=== PATIENT | female | born 1940 | race Caucasian/White ===

== ENCOUNTER 2020-07-19 06:22 | Outpatient (REF) | payer MEDICARE, MEDICAID, SELFPAY ==
[2020-07-19 07:34] LABS: Alanine Aminotransferase 22 U/L (0-31); Alkaline Phosphatase 91 U/L (39-117); Anion Gap 10 (12-20); Aspartate Amino Transferase 19 U/L (5-31); Bilirubin Total 0.5 mg/dL (0.0-1.0); Blood Urea Nitrogen 20 mg/dL (9-16); Calcium 8.8 mg/dL (8.4-10.2); Carbon Dioxide 31 mmol/L (22-29); Chloride 105 mmol/L (96-108); Cholesterol 150 mg/dL; Estimated Glomerular Filt Rate > 60; Glucose Random 103 mg/dL (60-115); HDL Cholesterol 47 mg/dL; LDL Cholesterol Calculated 74 mg/dl; Potassium 4.1 mmol/l (3.3-5.1); Sodium 142 mmol/L (135-145); Total Protein 6.4 g/dL (6.5-8.0); Triglycerides 145 mg/dL
[2020-07-19 07:55] LABS: TSH reflex Free T4 0.62 mIU/mL (0.32-4.0); Vitamin D 25-OH Total 34.7 ng/mL (>30)
== END 2020-07-19 06:23 | disposition home or self-care (01) ==
LOC: HO.LAB 06:22
PROVIDERS: PCP Internal Medicine; Visit Provider Internal Medicine
DX: E78.00 Pure hypercholesterolemia, unspecified (principal); E55.9 Vitamin D deficiency, unspecified; E03.9 Hypothyroidism, unspecified
CPT/HCPCS: 80053; 80061; 82306; 84443

== ENCOUNTER 2020-07-25 07:53 | Outpatient (REF) | payer MEDICARE, SELFPAY ==
--- NOTE | 2020-07-25 07:58 | MM_ITS ---
EXAMINATION: MM SCREENING DIGITAL BREAST TOMOSYNTHESIS, BILATERAL CLINICAL INFORMATION: Screening. Asymptomatic. The lifetime risk of breast cancer based on the Tyrer-Cuzick Model is 2%. COMPARISON: Mammography: 07/20/2019, 05/21/2018 TECHNIQUE: Digital breast tomosynthesis is performed in both the craniocaudal and mediolateral oblique views along with computer-aided detection (CAD). Synthesized 2D images are generated from the tomosynthesis. Additional left MLO view is provided. FINDINGS: The breasts are heterogeneously dense, which may obscure small masses (ACR BI-RADS breast composition Category c). There is fibronodular parenchymal pattern similar to prior studies. There is no developing density or interval mass or architectural abnormality. The axilla and skin contours are unremarkable. MM/MM tomosynthesis screening BI IMPRESSION: There are no significant changes from prior study. ASSESSMENT: BI-RADS 1: Negative RECOMMENDATION: Routine annual mammography screening. This patient's information was entered into a reminder system with a target due date for their next mammogram.
== END 2020-07-25 07:54 | disposition home or self-care (01) ==
LOC: HO.MAMMO 07:53
PROVIDERS: PCP Internal Medicine; Visit Provider Internal Medicine
DX: Z12.31 Encounter for screening mammogram for malignant neoplasm of breast (principal)
CPT/HCPCS: 77063; 77067

== ENCOUNTER 2020-09-13 11:48 | Outpatient (REF) | payer MEDICARE, SELFPAY | END 2020-09-13 11:49 | disposition home or self-care (01) | LOC: HO.LAB 11:48 | PROVIDERS: Visit Provider Internal Medicine | DX: Z20.822 Contact with and (suspected) exposure to COVID-19 (principal) | CPT/HCPCS: 36415; C9803; U0003 ==

== ENCOUNTER 2021-05-08 06:06 | Outpatient (REF) | payer MEDICARE, MEDICAID, SELFPAY ==
[2021-05-08 07:53] LABS: Alanine Aminotransferase 17 U/L (0-31); Albumin Level 3.9 g/dL (3.5-5.0); Alkaline Phosphatase 82 U/L (39-117); Anion Gap 14 (12-20); Aspartate Amino Transferase 16 U/L (5-31); Bilirubin Total 0.5 mg/dL (0.0-1.0); Blood Urea Nitrogen 21 mg/dL (9-16); Calcium 9.2 mg/dL (8.4-10.2); Carbon Dioxide 26 mmol/L (22-29); Chloride 106 mmol/L (96-108); Cholesterol 151 mg/dL; Estimated Glomerular Filt Rate > 60; Glucose Fasting 109 mg/dL (60-99); HDL Cholesterol 48 mg/dL; LDL Cholesterol Calculated 71 mg/dl; Potassium 4.1 mmol/L (3.3-5.1); Sodium 142 mmol/L (135-145); Total Protein 6.3 g/dL (6.5-8.0); Triglycerides 162 mg/dL
[2021-05-08 08:15] LABS: TSH reflex Free T4 1.07 uIU/mL (0.32-4.0)
[2021-05-12 13:51] LABS: Vitamin D 25-OH, D2 <4 ng/mL; Vitamin D 25-OH, D3 42 ng/mL; Vitamin D 25-OH, Total 42 ng/mL (30-100)
== END 2021-05-08 06:07 | disposition home or self-care (01) ==
LOC: HO.LAB 06:06
PROVIDERS: PCP Internal Medicine; Visit Provider Internal Medicine
DX: E03.9 Hypothyroidism, unspecified (principal); E78.00 Pure hypercholesterolemia, unspecified; E78.5 Hyperlipidemia, unspecified; I10 Essential (primary) hypertension; E55.9 Vitamin D deficiency, unspecified
CPT/HCPCS: 36415; 80053; 80061; 82306; 84443

== ENCOUNTER 2021-05-29 07:37 | Outpatient (REF) | payer MEDICARE, MEDICAID, SELFPAY ==
--- NOTE | ~2021-05-29 | CT_ITS ---
EXAMINATION: CT ABDOMEN AND PELVIS WITH CONTRAST CLINICAL INFORMATION: Diverticulitis. COMPARISON: None. TECHNIQUE: Multidetector volumetric images were obtained from the superior aspect of the liver through the pubic symphysis following administration 85 mL of Omnipaque 350 intravenous contrast. Sagittal and coronal reformatted images were obtained on the technologist's workstation. Oral contrast: No This CT examination was performed using dose optimization techniques as appropriate, variously including the following: *Automated exposure control *Adjustment of mA and/or kV according to patient size (this includes techniques or standardized protocols for targeted exams where dose is matched to indication/reason for exam; i.e. extremities or head) *Use of iterative reconstruction technique DLP: 281 mGy-cm. FINDINGS: LUNG BASES: The lung bases are clear. The heart size is normal. There is a large hiatal hernia. LIVER, GALLBLADDER, AND BILIARY TREE: The liver is normal in size, shape, and attenuation. No focal hepatic lesion or biliary ductal dilatation is present. The gallbladder is unremarkable with no evidence of radiopaque gallstones, gallbladder wall thickening, or obvious pericholecystic inflammatory changes. PANCREAS: The pancreas is atrophic. There is a slightly bulbous-appearing tail of pancreas measuring 1.7 x 1.3 cm on axial image 24/3. Whether this is a mass or normal pancreatic tissue is a question. It is unchanged to previous study. SPLEEN: Unremarkable. ADRENAL GLANDS: Unremarkable. KIDNEYS AND URETERS: The kidneys are normal in size, shape, and attenuation. No hydronephrosis, hydroureter, or calculi seen. No perinephric stranding. There are tiny hypodensities seen in bilateral renal cortical cysts likely cyst. BLADDER: Unremarkable. GASTROINTESTINAL TRACT: There is scattered stool, diverticuli and gas seen throughout the colon without diverticulitis. Oral contrast opacified small bowel loops are normal caliber. Appendix is likely normal caliber. No inflammatory changes seen. ABDOMINAL WALL: There is a left inguinal hernia containing intraperitoneal fat. It appears stable compared to previous study. LYMPH NODES: Normal. VASCULAR: Unremarkable. PELVIC VISCERA: There is no free air or free fluid. The uterus is atrophied or surgically absent. No adnexal mass seen. OSSEOUS STRUCTURES: Grade 1 anterolisthesis L4 over L5 is noted. There are degenerative disc changes L2-L3, L3-L4 disc levels. No lytic or sclerotic process seen. CT/CT abdomen pelvis w con IMPRESSION: Stable left inguinal hernia containing fat. Diffuse colonic diverticulosis without diverticulitis. Large paraesophageal hernia, stable. No acute intra-abdominal bleed. Stable atrophic pancreas and a slightly bulbous pancreatic tail.
[2021-05-29] MEDS: iohexoL 350 MG/ML 100 ML INFUS..BTL IV (10:39)
[2021-05-29] MEDS: Barium Sulfate Oral (Berry) 450 ML ORAL.SUSP 900 ML PO (10:40)
== END 2021-05-29 07:38 | disposition home or self-care (01) ==
LOC: HO.CT 07:37
PROVIDERS: Visit Provider Internal Medicine
DX: K57.92 Diverticulitis of intestine, part unspecified, without perforation or abscess without bleeding (principal)
CPT/HCPCS: 74177; Q9967

== ENCOUNTER 2021-08-08 08:25 | Outpatient (REF) | payer MEDICARE, MEDICAID, SELFPAY ==
--- NOTE | ~2021-08-08 | MM_ITS ---
EXAMINATION: MM SCREENING DIGITAL BREAST TOMOSYNTHESIS, BILATERAL CLINICAL INFORMATION: Screening. Asymptomatic. The lifetime risk of breast cancer based on the Tyrer-Cuzick Model is 2%. COMPARISON: Mammography: July 25, 2020 and studies dating back to January 22, 2014 TECHNIQUE: Digital breast tomosynthesis is performed in both the craniocaudal and mediolateral oblique views along with computer-aided detection (CAD). Synthesized 2D images are generated from the tomosynthesis. FINDINGS: The breasts are heterogeneously dense, which may obscure small masses (ACR BI-RADS breast composition Category c). There are no significant masses, abnormal calcifications, or other abnormalities. MM/MM tomosynthesis screening BI IMPRESSION: There are no significant changes from prior study. ASSESSMENT: BI-RADS 1: Negative RECOMMENDATION: Routine annual mammography screening. This patient's information was entered into a reminder system with a target due date for their next mammogram.
== END 2021-08-08 08:26 | disposition home or self-care (01) ==
LOC: HO.MAMMO 08:25
PROVIDERS: Visit Provider Internal Medicine
DX: Z12.31 Encounter for screening mammogram for malignant neoplasm of breast (principal)
CPT/HCPCS: 77063; 77067

== ENCOUNTER 2021-10-04 13:50 | Outpatient (REF) | payer MEDICARE, MEDICAID, SELFPAY ==
--- NOTE | ~2021-10-04 | MM_ITS ---
EXAMINATION: BONE DENSITOMETRY CLINICAL INDICATION: Encounter for screening for osteoporosis. COMPARISON: Previous BD dated 10/30/2012 and baseline BD dated 09/07/2010. TECHNIQUE: Using a [employer] DXA System (software version: 13.1) manufactured by [employer], dual-energy x-ray absorptiometry was performed of the lumbar spine and left hip. The images are of good technical quality. Summary results are attached. FINDINGS: AP SPINE L1-L2 (excluding L3 and L4): The data of L1-L4 has been changed to exclude the L3 and L4 vertebral bodies, because degenerative sclerosis at these levels may cause overestimation of lumbar spine density. Current: BMD 0.960 g/cm2, Z-score 0.4, T-score -1.7, osteopenia, 5.1% decrease from previous, 3.7% decrease from baseline (<5% change is not significant). Prior: BMD 1.012 g/cm2. Baseline: BMD 0.997 g/cm2. LEFT FEMUR, NECK: Current: BMD 0.850 g/cm2, Z-score 1.0, T-score -1.4, osteopenia. Prior: BMD 0.893 g/cm2. Baseline: BMD 0.927 g/cm2. LEFT FEMUR, TOTAL: Current: BMD 0.879 g/cm2, Z-score 1.2, T-score -1.0, normal, 8.3% decrease from previous, 9.0% decrease from baseline (<5% change is not significant). Prior: BMD 0.959 g/cm2. Baseline: BMD 0.966 g/cm2. IDENTIFIED RISK FACTORS: Osteoporosis, secondary osteoporosis, thiazide, menopause, hysterectomy. HISTORY OF FRACTURE: None listed. MEDICATIONS: Vitamin D. MM/XR DEXA axial skeleton IMPRESSION: 1. DIAGNOSIS: Osteopenia based on the lowest T-score value of -1.7 in the lumbar spine applying World Health Organization criteria. 2. 10-YEAR FRACTURE RISK PREDICTION, FRAX: Major osteoporotic fracture (clinical spine, forearm, hip or shoulder) 13.1%. Hip fracture 2.9%. 3. Treatment Recommendations: NOF guidelines recommend consideration for treatment in postmenopausal women and men age 50 and older presenting with the following: -A hip or vertebral (clinical or morphometric) fracture. -T-score less than or equal to -2.5 at the femoral neck or spine after appropriate evaluation to exclude secondary causes. -Low bone mass at the hip or spine and a 10-year fracture probability by FRAX of greater than or equal to 3% for hip fracture or greater than or equal to 20% for major osteoporotic fracture based on the [place] adapted WHO algorithm. 4. Other Recommendations: All treatment decisions require clinical judgment and consideration of individual patient factors, including patient preferences, comorbidities, previous drug use, risk factors not captured in the FRAX model (e.g. frailty, falls, vitamin D deficiency, increased bone turnover, interval significant decline in bone density) and possible under or overestimation of fracture risk by FRAX. Additional medical evaluation for secondary cause of low bone mineral density may be appropriate. FUTURE SCAN RECOMMENDATION: People with diagnosed cases of osteoporosis or at high risk for fracture should have regular bone mineral density tests. For patients eligible for Medicare, routine testing is allowed once every 2 years. The testing frequency can be increased to one year for patients who have rapidly progressing disease, those who are receiving or discontinuing medical therapy to restore bone mass, or have additional risk factors.
== END 2021-10-04 13:51 | disposition home or self-care (01) ==
LOC: HO.MAMMO 13:50
PROVIDERS: PCP Internal Medicine; Visit Provider Internal Medicine
DX: Z13.820 Encounter for screening for osteoporosis (principal); Z78.0 Asymptomatic menopausal state; Z79.899 Other long term (current) drug therapy
CPT/HCPCS: 77080

== ENCOUNTER → 2021-11-17 10:29 | Outpatient (BNVA) | payer MEDICARE, MEDICAID, SELFPAY | PROVIDERS: PCP Internal Medicine; Visit Provider Surgery | DX: K40.90 Unilateral inguinal hernia, without obstruction or gangrene, not specified as recurrent (principal) | CPT/HCPCS: 99202 ==

== ENCOUNTER 2022-02-07 06:10 | Outpatient (REF) | payer MEDICARE, MEDICAID, SELFPAY ==
[2022-02-07 06:37] LABS: MANUAL DIFF FLAG NO
[2022-02-07 07:17] LABS: Basophils Absolute Auto 0.1 X10*3/uL (0.0-0.2); Basophils Percent Auto 0.7 % (0-2); Eosinophils Absolute Auto 0.4 X10*3/uL (0.0-0.4); Eosinophils Percent Auto 5.2 % (0-4); Hematocrit 39.8 % (37.0-47.0); Hemoglobin 12.8 g/dl (12.0-16.0); Imm Gran Abs Auto 0.02 X10*3/uL (0.00-0.03); Imm Gran Pct Auto 0.2 % (0.0-0.4); Lymphocytes Percent Auto 24.3 % (20-40); Mean Corpuscular HGB Conc 32.2 g/dl (31.0-35.0); Mean Corpuscular Hemoglobin 29.9 pg (27.0-33.0); Mean Platelet Volume 9.6 fL (9.4-12.3); Monocytes Absolute Auto 0.6 X10*3/uL (0.1-1.2); Monocytes Percent Auto 6.9 % (2-11); Neutrophils Absolute Auto 5.3 x10*3/uL (2.0-8.3); Neutrophils Percent Auto 62.7 % (45-73); Platelet Count 238 X10*3/uL (160-400); Red Blood Count 4.28 X10*6/uL (4.20-5.50); Red Cell Distribution Width 13.5 % (11.0-16.0); White Blood Count 8.4 X10*3/uL (4.8-10.8)
[2022-02-07 08:03] LABS: Alanine Aminotransferase 14 U/L (0-31); Albumin Level 3.8 g/dL (3.5-5.0); Alkaline Phosphatase 95 U/L (39-117); Anion Gap 11 (12-20); Aspartate Amino Transferase 13 U/L (5-31); Bilirubin Total < 0.2 mg/dL (0.0-1.0); Blood Urea Nitrogen 19 mg/dL (9-16); Carbon Dioxide 28 mmol/L (22-29); Chloride 107 mmol/L (96-108); Cholesterol 155 mg/dL; Estimated Glomerular Filt Rate > 60; Glucose Fasting 107 mg/dL (60-99); HDL Cholesterol 43 mg/dL; LDL Cholesterol Calculated 84 mg/dl; Potassium 4.4 mmol/L (3.3-5.1); Sodium 142 mmol/L (135-145); Total Protein 6.1 g/dL (6.5-8.0); Triglycerides 140 mg/dL
[2022-02-07 08:12] LABS: Thyroid Stimulating Hormone 0.89 uIU/mL (0.32-4.0)
== END 2022-02-07 06:11 | disposition home or self-care (01) ==
LOC: HO.LAB 06:10
PROVIDERS: PCP Internal Medicine; Visit Provider Internal Medicine
DX: E03.9 Hypothyroidism, unspecified (principal); E78.5 Hyperlipidemia, unspecified; I10 Essential (primary) hypertension; R63.4 Abnormal weight loss
CPT/HCPCS: 36415; 80053; 80061; 84443; 85025

== ENCOUNTER 2022-06-25 06:07 | Outpatient (REF) | payer MEDICARE, MEDICAID, SELFPAY ==
[2022-06-25 08:01] LABS: Alanine Aminotransferase 9 U/L (0-31); Alkaline Phosphatase 100 U/L (39-117); Anion Gap 16 (12-20); Aspartate Amino Transferase 13 U/L (5-31); Bilirubin Total 0.5 mg/dL (0.0-1.0); Blood Urea Nitrogen 14 mg/dL (9-16); Calcium 9.4 mg/dL (8.4-10.2); Carbon Dioxide 24 mmol/L (22-29); Chloride 108 mmol/L (96-108); Cholesterol 161 mg/dL; Estimated Glomerular Filt Rate > 60; Glucose Fasting 109 mg/dL (60-99); HDL Cholesterol 44 mg/dL; LDL Cholesterol Calculated 87 mg/dl; Potassium 4.3 mmol/L (3.3-5.1); Sodium 144 mmol/L (135-145); Total Protein 6.4 g/dL (6.5-8.0); Triglycerides 153 mg/dL
[2022-06-25 08:30] LABS: Thyroid Stimulating Hormone 0.64 uIU/mL (0.32-4.0)
== END 2022-06-25 06:08 | disposition home or self-care (01) ==
LOC: HO.LAB 06:07
PROVIDERS: PCP Internal Medicine; Visit Provider Internal Medicine
DX: I10 Essential (primary) hypertension (principal); E78.5 Hyperlipidemia, unspecified; E03.9 Hypothyroidism, unspecified
CPT/HCPCS: 36415; 80053; 80061; 84443

== ENCOUNTER 2022-09-26 15:42 | Outpatient (REF) | payer MEDICARE, MEDICAID, SELFPAY ==
--- NOTE | ~2022-09-26 | MM_ITS ---
EXAMINATION: MM SCREENING DIGITAL BREAST TOMOSYNTHESIS, BILATERAL CLINICAL INFORMATION: Screening. Asymptomatic. The lifetime risk of breast cancer based on the Tyrer-Cuzick Model is 1.3%. COMPARISON: Mammography: August 08, 2021 and studies dating back to March 30, 2016 TECHNIQUE: Digital breast tomosynthesis is performed in both the craniocaudal and mediolateral oblique views along with computer-aided detection (CAD). Synthesized 2D images are generated from the tomosynthesis. FINDINGS: The breasts are heterogeneously dense, which may obscure small masses (ACR BI-RADS breast composition Category c). There are no significant masses, abnormal calcifications, or other abnormalities. MM/MM tomosynthesis screening BI IMPRESSION: No significant changes ASSESSMENT: BI-RADS 1: Negative RECOMMENDATION: Routine annual mammography screening. This patient's information was entered into a reminder system with a target due date for their next mammogram.
== END 2022-09-26 15:43 | disposition home or self-care (01) ==
LOC: HO.MAMMO 15:42
PROVIDERS: Visit Provider Internal Medicine
DX: Z12.31 Encounter for screening mammogram for malignant neoplasm of breast (principal)
CPT/HCPCS: 77063; 77067

== ENCOUNTER 2022-12-10 06:14 | Outpatient (REF) | payer MEDICARE, MEDICAID, SELFPAY ==
[2022-12-10 08:45] LABS: Alanine Aminotransferase 12 U/L (0-31); Albumin Level 3.8 g/dL (3.5-5.0); Alkaline Phosphatase 87 U/L (39-117); Anion Gap 14 (12-20); Aspartate Amino Transferase 13 U/L (5-31); Bilirubin Total 0.6 mg/dL (0.0-1.0); Blood Urea Nitrogen 17 mg/dL (9-16); Calcium 9.3 mg/dL (8.4-10.2); Carbon Dioxide 25 mmol/L (22-29); Chloride 109 mmol/L (96-108); Cholesterol 161 mg/dL; Estimated Glomerular Filt Rate > 60; Glucose Fasting 97 mg/dL (60-99); HDL Cholesterol 50 mg/dL; LDL Cholesterol Calculated 88 mg/dl; Potassium 4.6 mmol/L (3.3-5.1); Sodium 143 mmol/L (135-145); Triglycerides 116 mg/dL
[2022-12-11 23:53] LABS: Prot Elec - Albumin 3.7 g/dL (3.8-4.8); Prot Elec - Alpha1 0.3 g/dL (0.2-0.3); Prot Elec - Alpha2 0.9 g/dL (0.5-0.9); Prot Elec - Beta 1 0.4 g/dL (0.4-0.6); Prot Elec - Beta 2 0.3 g/dL (0.2-0.5); Prot Elec - Gamma 0.7 g/dL (0.8-1.7); Prot Elec - Total Protein 6.2 g/dL (6.1-8.1)
== END 2022-12-10 06:15 | disposition home or self-care (01) ==
LOC: HO.LAB 06:14
PROVIDERS: PCP Internal Medicine; Visit Provider Internal Medicine
DX: Z00.00 Encounter for general adult medical examination without abnormal findings (principal); R79.9 Abnormal finding of blood chemistry, unspecified; E78.5 Hyperlipidemia, unspecified; E03.9 Hypothyroidism, unspecified
CPT/HCPCS: 36415; 80053; 80061; 84165; 84443

== ENCOUNTER 2023-03-14 06:18 | Outpatient (REF) | payer MEDICARE, MEDICAID, SELFPAY ==
[2023-03-14 06:37] LABS: MANUAL DIFF FLAG NO
[2023-03-14 07:40] LABS: Basophils Percent Auto 0.6 % (0-2); Eosinophils Absolute Auto 0.3 X10*3/uL (0.0-0.4); Eosinophils Percent Auto 4.8 % (0-4); Hematocrit 40.8 % (37.0-47.0); Hemoglobin 13.2 g/dl (12.0-16.0); Imm Gran Abs Auto 0.02 X10*3/uL (0.00-0.03); Imm Gran Pct Auto 0.3 % (0.0-0.4); Lymphocytes Percent Auto 29.7 % (20-40); Mean Corpuscular HGB Conc 32.4 g/dl (31.0-35.0); Mean Corpuscular Hemoglobin 29.4 pg (27.0-33.0); Mean Corpuscular Volume 90.9 fL (80.0-98.0); Mean Platelet Volume 9.6 fL (9.4-12.3); Monocytes Absolute Auto 0.6 X10*3/uL (0.1-1.2); Monocytes Percent Auto 8.7 % (2-11); Neutrophils Absolute Auto 3.8 x10*3/uL (2.0-8.3); Neutrophils Percent Auto 55.9 % (45-73); Platelet Count 226 X10*3/uL (160-400); Red Blood Count 4.49 X10*6/uL (4.20-5.50); Red Cell Distribution Width 14.1 % (11.0-16.0); White Blood Count 6.8 X10*3/uL (4.8-10.8)
[2023-03-14 08:28] LABS: Alanine Aminotransferase 12 U/L (0-31); Albumin Level 3.8 g/dL (3.5-5.0); Alkaline Phosphatase 82 U/L (39-117); Aspartate Amino Transferase 13 U/L (5-31); Bilirubin Total 0.5 mg/dL (0.0-1.0); Blood Urea Nitrogen 16 mg/dL (9-16); Calcium 9.6 mg/dL (8.4-10.2); Chloride 112 mmol/L (96-108); Estimated Glomerular Filt Rate > 60; Glucose Fasting 102 mg/dL (60-99); Potassium 4.2 mmol/L (3.3-5.1); Sodium 146 mmol/L (135-145); Total Protein 6.2 g/dL (6.5-8.0)
[2023-03-14 08:35] LABS: Thyroid Stimulating Hormone 1.36 uIU/mL (0.32-4.0)
[2023-03-14 10:17] LABS: Carbon Dioxide 24 mmol/L (22-29)
[2023-03-14 10:27] LABS: Anion Gap 15 (12-20)
== END 2023-03-14 06:19 | disposition home or self-care (01) ==
LOC: HO.LAB 06:18
PROVIDERS: PCP Internal Medicine; Visit Provider Internal Medicine
DX: R07.9 Chest pain, unspecified (principal); E03.9 Hypothyroidism, unspecified; E78.00 Pure hypercholesterolemia, unspecified
CPT/HCPCS: 36415; 80053; 84443; 85025

== ENCOUNTER 2023-03-18 10:49 | Outpatient (AMB) | payer MEDICARE, MEDICAID, SELFPAY ==
[2023-03-18 10:56] VITALS: BP 132/70; BMI 24.2
--- NOTE | 2023-03-18 10:56 | MHC.PC.OV ---
Vital Signs 03/18/23 10:56 Height 4 ft 11 in Weight 120 lb BMI 24.2 BP 132/70 Blood Pressure Location Lt brachial Position Sitting Intake Visit Reasons: physical Intake Note: Patient here for a physical exam Responder Required: No Accompanied by: Self / Same As Patient Allergies No Known Allergies [No Known Allergies*] Allergy (Verified 03/18/23 11:15) Medication List - Last Reconciled 03/18/23 by Gretel Cornejo MD atorvastatin 20 mg PO DAILY enalapril maleate 20 mg PO DAILY 90 days levothyroxine 75 mcg PO QAM omeprazole 40 mg PO DAILY 90 days varicella-zoster gE-AS01B (PF) 50 mcg/0.5 mL IM Tobacco use date assessed: 12/12/22 Fall risk assessment: No Falls in past year Last assessed Fall Risk: 03/18/23 Dental Screening Dental Screen Date: 03/18/23 Did you have a dental visit in the last 12 months?: Yes Did you have a dental problem in the last 6 months where you did not have access to dental care?: No Was dental information given to patient?: Patient has dentist HPI HPI Comments History of Present Illness Details This is an 82-year-old female with hypertension that comes for her physical exam. Last mammogram was 2022 and was normal. Last bone density was September 2021 showing osteopenia. No need for Pap smear or colonoscopy due to age. No chest pain or shortness of breath. Has low total protein level and will be referred to Hematology-Oncology. [facility] Medical History Essential hypertension GERD (gastroesophageal reflux disease) Hypothyroidism Left inguinal hernia Pure hypercholesterolemia Screening for osteoporosis Weight loss Surgical History History of appendectomy History of hysterectomy History of inguinal hernia repair (~1987) Family History Father COPD (chronic obstructive pulmonary disease) Mother Acute CVA (cerebrovascular accident) Hypertension Alcoholism Brother Stomach cancer Paternal Grandmother Uterine cancer Family/Other FH: mental illness Maternal Grandmother Hypertension Social History Housing: House Alcohol intake: never Patient Tobacco Use Status: Former Tobacco user Tobacco use type: Cigarette e-Cigarette/Vaping Use: Never Used Second Hand Smoke Exposure: No service: No Current occupational status: retired Cognitive needs: No Hearing needs: No Vision needs: No Questionnaire Thrive Questionnaire Date Thrive assessed: 12/12/22 MICHELLE-7 AMB Questionnaire MICHELLE-7 Date MICHELLE - 7 assessed: 12/12/22 Source: Developed by Drs. Fernando Stauffer, Selam Cabrera, Rao Roche and colleagues, with an educational hari from [employer]. Review of Systems Const All systems reviewed & are unremarkable except as noted in HPI and below Eyes Reports no additional complaints, Denies change in vision and Denies other visual disturbances Card Denies chest pain at rest, Denies chest pain with activity, Denies edema, Denies irregular heart rhythm, Denies claudication, Denies dyspnea, Denies dyspnea on exertion, Denies orthopnea, Denies paroxysmal nocturnal dyspnea and Denies slow heart rate Resp Denies cough, Denies dyspnea and Denies dyspnea on exertion GI Denies abdominal pain, Denies change in bowel habits, Denies excessive flatus, Denies nausea and Denies vomiting Denies urinary incontinence, Denies urinary hesitancy and Denies urinary urgency Musc Denies abnormal gait, Denies atrophy, Denies deformity and Denies limited range of motion Skin/Breast Denies bleeding lesions, Denies changing lesions and Denies rash Neuro Denies abnormal gait, Denies confusion and Denies lack of coordination Psych Denies confusion Physical exam (Primary Care) Vital Signs: Last Vital Signs BP 132/70 03/18/23 10:56 BMI result Body Mass Index 24.2 Tobacco/Smoking Status: Tobacco use Status Tobacco use date assessed 12/12/22 03/18/23 11:01 Patient Tobacco Use Status Former Tobacco user 03/18/23 11:01 Tobacco use type Cigarette 03/18/23 11:01 e-Cigarette/Vaping Use Never Used 03/18/23 11:01 Thrive Assessment: Date of Thrive Assessment Date Thrive assessed 12/12/22 03/18/23 11:01 Const General: No confusion Orientation/consciousness: patient oriented x3 and No confusion HENMT Head: Yes normal to inspection, Yes normocephalic and Yes atraumatic Ears: external ears normal Eyes General: appearance normal, both eyes and all related structures Eyelids: Yes eyelids normal Conjunctivae: conjunctivae normal Neck Neck: Yes normal visual inspection and Yes supple Resp Effort & Inspection: normal respiratory effort Auscultation: clear to auscultation bilaterally Cardio Jugular venous distension: no JVD Rate: regular rate Rhythm: regular rhythm Heart sounds: S1 normal heart sound present and S2 normal heart sound present GI Inspection: Yes normal to inspection Palpation (GI): Soft to palpation and nontender Auscultation: normal bowel sounds Skin General skin exam: no rashes or lesions noted Neuro General: patient oriented x3, no focal motor deficits and No confusion Extrem General: Yes full ROM Psych Appearance: grossly normal Assessment and Plan Assessment & Plan (1) Physical exam: Code(s): Z00.00 - Encounter for general adult medical examination without abnormal findings Plan: Repeat in a year. Orders: Orders Comprehensive [place]. Panel Fast 4 Months I10 - Essential (primary) hypertension Lipid Panel 4 Months E78.5 - Hyperlipidemia, unspecified Thyroid Stimulating Hormone 4 Months E03.9 - Hypothyroidism, unspecified Vitamin D 25-OH Total 4 Months E55.9 - Vitamin D deficiency, unspecified Referrals Hematology & Oncology Referral R79.89 - Other specified abnormal findings of blood chemistry Coding Level of Care Code Est Pt Prev Care >65y(02058) Diagnoses Physical exam Z00.00 Time Spent (min) 31
== END 2023-03-18 11:30 | disposition home or self-care (01) ==
PROVIDERS: Visit Provider Internal Medicine
DX: Z00.00 Encounter for general adult medical examination without abnormal findings (principal)
CPT/HCPCS: 99397

== ENCOUNTER 2023-03-19 13:13 | Outpatient (REF) | payer MEDICARE, MEDICAID, SELFPAY ==
[2023-03-22 14:08] LABS: IgA 130 mg/dL (70-320); IgG 732 mg/dL (600-1540); IgM 112 mg/dL (50-300)
[2023-03-24 11:39] LABS: Prot Elec - Albumin 3.7 g/dL (3.8-4.8); Prot Elec - Alpha1 0.3 g/dL (0.2-0.3); Prot Elec - Alpha2 0.9 g/dL (0.5-0.9); Prot Elec - Beta 1 0.4 g/dL (0.4-0.6); Prot Elec - Beta 2 0.3 g/dL (0.2-0.5); Prot Elec - Gamma 0.7 g/dL (0.8-1.7); Prot Elec - Total Protein 6.2 g/dL (6.1-8.1)
== END 2023-03-19 13:14 | disposition home or self-care (01) ==
LOC: HO.LAB 13:13
PROVIDERS: PCP Internal Medicine; Visit Provider Internal Medicine
DX: R79.89 Other specified abnormal findings of blood chemistry (principal)
CPT/HCPCS: 36415; 82784; 84165; 86334

== ENCOUNTER 2023-07-29 09:44 | Outpatient (AMB) | payer MEDICARE, MEDICAID, SELFPAY ==
[2023-07-29 09:45] VITALS: BP 132/70; BMI 24.8
--- NOTE | 2023-07-29 09:45 | A.OFFPC_ITS ---
Vital Signs 07/29/23 09:45 Height 4 ft 11 in Weight 123 lb BMI 24.8 BP 132/70 Blood Pressure Location Lt brachial Position Sitting Intake Visit Reasons: Follow Up Intake Note: Patient here for a follow up Promotional Representative Required: No Accompanied by: Self / Same As Patient Allergies No Known Allergies [No Known Allergies*] Allergy (Verified 07/29/23 09:58) Medication List - Last Reconciled 07/29/23 by Gretel Cornejo MD atorvastatin 20 mg PO DAILY enalapril maleate 20 mg PO DAILY 90 days levothyroxine 75 mcg PO QAM omeprazole 40 mg PO DAILY 90 days varicella-zoster gE-AS01B (PF) 50 mcg/0.5 mL IM Tobacco use date assessed: 12/12/22 Fall risk assessment: No Falls in past year Last assessed Fall Risk: 07/29/23 Dental Screening Dental Screen Date: 07/29/23 Did you have a dental visit in the last 12 months?: Yes Did you have a dental problem in the last 6 months where you did not have access to dental care?: No Was dental information given to patient?: Patient has dentist HPI HPI Comments History of Present Illness Details This is an 82-year-old female with hypothyroidism, hypertension, pure h ypercholesterolemia and GERD that comes today for follow-up on her conditions. Last TSH was normal and TSH will be repeated in 4 months. Compliant with levothyroxine. Blood pressure stable. Last cholesterol was well control. GERD stable with PPIs. She has a low total protein and was advised to follow a high- protein diet and add protein shakes. No chest pain or shortness of breath. [facility] Medical History Weight loss Screening for osteoporosis Left inguinal hernia GERD (gastroesophageal reflux disease) Hypothyroidism Essential hypertension Pure hypercholesterolemia Surgical History History of inguinal hernia repair (~1987) History of appendectomy History of hysterectomy Family History Father COPD (chronic obstructive pulmonary disease) Mother Acute CVA (cerebrovascular accident) Hypertension Alcoholism Brother Stomach cancer Paternal Grandmother Uterine cancer Family/Other FH: mental illness Maternal Grandmother Hypertension Social History Housing: House Alcohol intake: never Patient Tobacco Use Status: Former Tobacco user Tobacco use type: Cigarette e-Cigarette/Vaping Use: Never Used Second Hand Smoke Exposure: No service: No Current occupational status: retired Cognitive needs: No Hearing needs: No Vision needs: No Questionnaire Thrive Questionnaire Date Thrive assessed: 12/12/22 MICHELLE-7 AMB Questionnaire MICHELLE-7 Date MICHELLE - 7 assessed: 12/12/22 Feeling nervous, anxious, or on edge: 0 = Not at all Not being able to stop or control worryin = Not at all Worrying too much about different things: 0 = Not at all Trouble relaxin = Not at all Being so restless that it is hard to sit still: 0 = Not at all Becoming easily annoyed or irritable: 0 = Not at all Feeling afraid as if something awful might happen: 0 = Not at all Total MICHELLE-7 score (0-4 normal; 5-9 mild; 10-14 moderate; 15-21 severe): 0 Source: Developed by Drs. Fernando Stauffer, Selam Caberra, Rao Roche and colleagues, with an educational hari from [employer]. MICHELLE-7 Assessment Billing MICHELLE-7 Assessment Tool: MICHELLE-7 Assessment 24009 Review of Systems Const All systems reviewed & are unremarkable except as noted in HPI and below Eyes Reports no additional complaints, Denies change in vision and Denies other visual disturbances Card Denies chest pain at rest, Denies chest pain with activity, Denies edema, Denies irregular heart rhythm, Denies claudication, Denies dyspnea, Denies dyspnea on exertion, Denies orthopnea, Denies paroxysmal nocturnal dyspnea and Denies slow heart rate Resp Denies cough, Denies dyspnea and Denies dyspnea on exertion GI Denies abdominal pain, Denies change in bowel habits, Denies excessive flatus, Denies nausea and Denies vomiting Denies urinary incontinence, Denies urinary hesitancy and Denies urinary urgency Musc Denies abnormal gait, Denies atrophy, Denies deformity and Denies limited range of motion Skin/Breast Denies bleeding lesions, Denies changing lesions and Denies rash Neuro Denies abnormal gait and Denies lack of coordination Physical exam (Primary Care) Vital Signs: Last Vital Signs BP 132/70 07/29/23 09:45 BMI result Body Mass Index 24.8 Tobacco/Smoking Status: Tobacco use Status Tobacco use date assessed 12/12/22 07/29/23 09:45 Patient Tobacco Use Status Former Tobacco user 07/29/23 09:45 Tobacco use type Cigarette 07/29/23 09:45 e-Cigarette/Vaping Use Never Used 07/29/23 09:45 Thrive Assessment: Date of Thrive Assessment Date Thrive assessed 12/12/22 07/29/23 09:45 Eyes General: appearance normal, both eyes and all related structures Eyelids: Yes eyelids normal Conjunctivae: conjunctivae normal Neck Neck: Yes normal visual inspection and Yes supple Resp Effort & Inspection: normal respiratory effort Auscultation: clear to auscultation bilaterally Cardio Jugular venous distension: no JVD Rate: regular rate Rhythm: regular rhythm Heart sounds: S1 normal heart sound present and S2 normal heart sound present Extrem General: Yes full ROM Assessment and Plan Assessment & Plan (1) Hypothyroidism: Code(s): E03.9 - Hypothyroidism, unspecified Qualifiers: Hypothyroidism type: unspecified Qualified Code(s): E03.9 - Hypothyroidism, unspecified Plan: Continue levothyroxine. Monitor TSH. (2) GERD (gastroesophageal reflux disease): Code(s): K21.9 - Gastro-esophageal reflux disease without esophagitis Qualifiers: Esophagitis presence: esophagitis presence not specified Qualified Code(s): K21.9 - Gastro-esophageal reflux disease without esophagitis Plan: Continue PPIs as needed. (3) Essential hypertension: Code(s): I10 - Essential (primary) hypertension Plan: Continue enalapril. Blood pressure goal is equal or less than 130/80. (4) Pure hypercholesterolemia: Code(s): E78.00 - Pure hypercholesterolemia, unspecified Plan: Continue statins. Orders: Orders Comprehensive [place]. Panel Fast 4 Months I10 - Essential (primary) hypertension Thyroid Stimulating Hormone 4 Months E03.9 - Hypothyroidism, unspecified Lipid Panel 4 Months E78.5 - Hyperlipidemia, unspecified Coding Level of Care Code Est Pt Level 4 (01297) Diagnoses Hypothyroidism, unspecified type E03.9 Hypothyroidism type: unspecified Gastroesophageal reflux disease, unspecified whether esophagitis present K21.9 Esophagitis presence: esophagitis presence not specified Essential hypertension I10 Pure hypercholesterolemia E78.00 Additional Codes MICHELLE-7 Assessment Billing - MICHELLE-7 Assessment Tool: MICHELLE-7 Assessment 02583 ([id number]) Time Spent (min) 22
== END 2023-07-29 10:09 | disposition home or self-care (01) ==
PROVIDERS: PCP Internal Medicine; Visit Provider Internal Medicine
DX: E03.9 Hypothyroidism, unspecified (principal); K21.9 Gastro-esophageal reflux disease without esophagitis; I10 Essential (primary) hypertension; E78.00 Pure hypercholesterolemia, unspecified
CPT/HCPCS: 99214

== ENCOUNTER 2023-10-02 08:22 | Outpatient (REF) | payer MEDICARE, MEDICAID, SELFPAY | END 2023-10-02 08:23 | disposition home or self-care (01) | LOC: HO.MAMMO 08:22 | PROVIDERS: PCP Internal Medicine; Visit Provider Internal Medicine | DX: Z12.31 Encounter for screening mammogram for malignant neoplasm of breast (principal) | CPT/HCPCS: 77063; 77067 ==

== ENCOUNTER → 2023-10-02 08:30 | Outpatient (BNV) | payer MEDICARE, MEDICAID, SELFPAY | PROVIDERS: PCP Internal Medicine; Visit Provider Radiology Diagnostic Radiology | DX: Z12.31 Encounter for screening mammogram for malignant neoplasm of breast (principal) | CPT/HCPCS: 77063; 77067 ==

== ENCOUNTER 2023-10-11 11:20 | Outpatient (AMB) | payer MEDICARE, MEDICAID, SELFPAY ==
--- NOTE | 2023-10-11 11:27 | AM.OFFWIN_ITS ---
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 Patient Tobacco Use Status: Former Tobacco user Allergies No Known Allergies [No Known Allergies*] Allergy (Verified 10/11/23 11:29) Do you need a note to return to daycare/school/sports/work: No HPI HPI Comments History of Present Illness Details This is an 82-year-old female with a history of diverticulosis/diverticulitis who presented to the office with concerns for a diverticulitis flare up. Patient states she gets occasional flare-ups of her diverticulosis/diverticulitis and they usually present themselves with right lower quadrant abdominal pain. She states that she has been experiencing mild right lower quadrant abdominal pain for the past 1 week. She states she has been doing symptomatic management at home including a liquid diet and acetaminophen/dicyclomine for pain but her pain has continued. She states the pain has not worsened the pain has actually improved as she was pain free all night last night until she ate breakfast this morning. Patient has been able to tolerate liquid diet without difficulty. She denies any fever/chills. She denies any nausea/vomiting/diarrhea. She states pain is not usually worsened with eating and appears to be relieved with acetaminophen/dicyclomine in a bowel movement. She denies any urinary symptoms including dysuria, hematuria, urinary frequency, or urinary urgency. The patient is otherwise feeling well. [facility] Medical History Weight loss Screening for osteoporosis Left inguinal hernia GERD (gastroesophageal reflux disease) Hypothyroidism Essential hypertension Pure hypercholesterolemia Surgical History History of inguinal hernia repair (~1987) History of appendectomy History of hysterectomy Family History Father COPD (chronic obstructive pulmonary disease) Mother Acute CVA (cerebrovascular accident) Hypertension Alcoholism Brother Stomach cancer Paternal Grandmother Uterine cancer Family/Other FH: mental illness Maternal Grandmother Hypertension Social History Housing: House Alcohol intake: never Patient Tobacco Use Status: Former Tobacco user Tobacco use type: Cigarette e-Cigarette/Vaping Use: Never Used Second Hand Smoke Exposure: No service: No Current occupational status: retired Cognitive needs: No Hearing needs: No Vision needs: No Review of Systems Const All systems reviewed & are unremarkable except as noted in HPI and below Reports no additional complaints Eyes Reports no additional complaints ENT Reports no additional complaints Card Reports no additional complaints Resp Reports no additional complaints GI Reports no additional complaints Reports no additional complaints Musc Reports no additional complaints Skin/Breast Reports system reviewed and no additional complaints, except as documented Neuro Reports no additional complaints Psych Reports no additional complaints Endo Reports no additional complaints Keith/Lymph Reports no additional complaints Aller/Immun Reports no additional complaints Physical Exam Vital Signs: Last Vital Signs Temp 97.6 F 10/11/23 11:28 Pulse 72 10/11/23 11:28 BP 136/62 10/11/23 11:28 Pulse Ox 98 10/11/23 11:28 Oxygen Delivery Method Room Air 10/11/23 11:28 BMI result Body Mass Index 25.5 Const Other: Vital signs reviewed. Constitutional: Non-toxic appearing. No acute distress. Well-developed and well-nourished. HEENT: Normocephalic and atraumatic. Skin: Warm and dry. No rashes or lesions noted. Neck: Full and painless range of motion. No cervical lymphadenopathy. Cardio: Regular rate. No lower extremity edema. No JVD. Pulmonary: No respiratory distress. No accessory muscle usage. Gastrointestinal: Minimal tenderness to palpation of the right lower quadrant but otherwise the abdomen is soft, non-tender, and non-distended in all 4 quadrants. Normoactive bowel sounds in all 4 quadrants. Genitourinary: No CVA tenderness. Musculoskeletal: Normal range of motion in joints throughout the body. No deformity or other signs of injury. Neuro: Alert and oriented x4. Cranial nerves 2-12 grossly intact. No focal deficits appreciated. Psych: Normal mood and affect. Assessment & Plan Assessment & Plan (1) Diverticulosis: Code(s): K57.90 - Diverticulosis of intestine, part unspecified, without perforation or abscess without bleeding Plan: This is an 82-year-old female with history of diverticulosis/diverticulitis who presented to the walk-in clinic with concerns of a ?diverticulosis flare-up?. She states that she occasionally gets flare ups at present as right lower quadrant abdominal pain. The patient has been having right lower quadrant abdominal pain for the past 1 week, which actually appears to be slightly improving with symptomatic management including liquid diet and acetaminophen/dicyclomine. On physical examination, she has minimal tenderness to palpation of the right lower quadrant but her abdomen is otherwise soft, non tender, and nondistended without peritoneal signs and with normoactive bowel sounds. The patient possibly has a very mild diverticulitis, she does not have an appendix so appendicitis is less likely, she does not have any urinary symptoms so a urinary tract infection is less likely, very low suspicion for ischemic bowel given no melena/hematochezia and her abdominal pain is improving, very low suspicion for small bowel obstruction as she is having bowel movements and she has normoactive bowel sounds. I discussed different treatment options with the patient including continuing with symptomatic management as her symptoms are improving versus starting antibiotic treatment. The patient has opted to continue with symptomatic management as she is able to tolerate a diet without difficulty, her abdominal pain is improving with symptomatic management, she has no fever/chills, and she is overall nontoxic appearing. She was encouraged to proceed to the emergency room if she were to develop fever/chills, nausea/vomiting/diarrhea, melena/hematochezia, or inability to tolerate oral intake. The patient verbalized her understanding and she is in agreement with the plan. Patient was extremely appreciative of the help today and the patient was reassured prior to discharge home. Coding Level of Care Code Est Pt Level 3 (47069) Diagnoses Diverticulosis K57.90
[2023-10-11 11:28] VITALS: BP 136/62; PULSE 72; TEMP 36.4; O2SAT 98; BMI 25.5
== END 2023-10-11 12:04 | disposition home or self-care (01) ==
PROVIDERS: PCP Internal Medicine; Visit Provider Physician Assistant Medical
DX: K57.90 Diverticulosis of intestine, part unspecified, without perforation or abscess without bleeding (principal)
CPT/HCPCS: 99213

== ENCOUNTER 2023-10-15 09:42 | Outpatient (AMB) | payer MEDICARE, MEDICAID, SELFPAY ==
--- NOTE | 2023-10-15 09:45 | MHC.PC.OV ---
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 Accompanied by: Self / Same As Patient Allergies No Known Allergies [No Known Allergies*] Allergy (Verified 10/15/23 09:54) Medication List - Last Reconciled 10/15/23 by Gretel Cornejo MD atorvastatin 20 mg PO DAILY dicyclomine 20 mg PO BID enalapril maleate 20 mg PO DAILY 90 days levothyroxine 75 mcg PO QAM omeprazole 40 mg PO DAILY 90 days varicella-zoster gE-AS01B (PF) 50 mcg/0.5 mL IM Tobacco use date assessed: 10/15/23 Fall risk assessment: No Falls in past year Last assessed Fall Risk: 10/15/23 Dental Screening Dental Screen Date: 10/15/23 Did you have a dental visit in the last 12 months?: Yes Did you have a dental problem in the last 6 months where you did not have access to dental care?: No Was dental information given to patient?: Patient has dentist HPI HPI Comments History of Present Illness Details This is an 82-year-old female with hypothyroidism, hypertension and pure hypercholesterolemia that comes today complaining of right lower quadrant abdominal pain that started 2 weeks ago associated with some constipation. No fever. No nausea or vomiting. No previous trauma. The pain is constant. She is passing gas. Does not look septic. Ultrasound will be order as well as labs. I order TSH. Blood pressure stable. Last cholesterol was well controlled with statins. [facility] Medical History (Updated 10/15/23 @ 10:03 by Gretel Cornejo MD) Weight loss Screening for osteoporosis Left inguinal hernia GERD (gastroesophageal reflux disease) Hypothyroidism Essential hypertension Pure hypercholesterolemia Surgical History History of inguinal hernia repair (~1987) History of appendectomy History of hysterectomy Family History Father COPD (chronic obstructive pulmonary disease) Mother Acute CVA (cerebrovascular accident) Hypertension Alcoholism Brother Stomach cancer Paternal Grandmother Uterine cancer Family/Other FH: mental illness Maternal Grandmother Hypertension Social History Housing: House Alcohol intake: never Patient Tobacco Use Status: Former Tobacco user Tobacco use type: Cigarette e-Cigarette/Vaping Use: Never Used Second Hand Smoke Exposure: No service: No Current occupational status: retired Cognitive needs: No Hearing needs: No Vision needs: No Questionnaire PHQ-9 Over the last 2 weeks, how often have you been bothered by any of the following problems? 1. Little interest or pleasure in doing things: not at all 2. Feeling down, depressed, or hopeless: not at all 3. Trouble falling or staying asleep, or sleeping too much: not at all 4. Feeling tired or having little energy: not at all 5. Poor appetite or overeating: not at all 6. Feeling bad about yourself - or that you are a failure or have let yourself or your family down: not at all 7. Trouble concentrating on things, such as reading the newspaper or watching television: not at all 8. Moving or speaking so slowly that other people could have noticed. Or the opposite - being so fidgety or restless that you have been moving around a lot more than usual: not at all 9. Thoughts that you would be better off or of hurting yourself in some way: not at all Total score: 0 Depression Screening Interpretation: Negative Depression Screening Done: Yes 61023 - PHQ-9 Billing: Yes Source: Developed by Drs. Fernando Stauffer, Selam Cabrera, Rao Roche and colleagues, with an educational hari from [employer]. Thrive Questionnaire Date Thrive assessed: 10/15/23 I am a: Patient What is your living situation today?: I have a steady place to live Within the past 12 months, did the food you bought not last and you didn't have the money to get more?: Never true Within the past 12 months, did you worry whether your food would run out before you got money to buy more?: Never true Do you have trouble paying for medicines?: No Do you have trouble getting transportation to medical appointments?: No Do you have trouble paying your heating and electricity bill?: No Do you have trouble taking care of your child, family member or friend?: No Do you have trouble with day-to-day activities such as bathing, preparing meals, shopping, managing finances, etc.?: No Are you currently unemployed and looking for a job?: No Are you interested in more education?: No Please select the resources that you would like help with: None Currently or been in a relationship where the following occur: no concerns reported THRIVE Score: 0 AUDIT C Alcohol Use Questionnaire (AUDIT-C) 1. How often do you have a drink containing alcohol?: Never Total Score: 0 MICHELLE-7 AMB Questionnaire MICHELLE-7 Date MICHELLE - 7 assessed: 10/15/23 Feeling nervous, anxious, or on edge: 0 = Not at all Not being able to stop or control worryin = Not at all Worrying too much about different things: 0 = Not at all Trouble relaxin = Not at all Being so restless that it is hard to sit still: 0 = Not at all Becoming easily annoyed or irritable: 0 = Not at all Feeling afraid as if something awful might happen: 0 = Not at all Total MICHELLE-7 score (0-4 normal; 5-9 mild; 10-14 moderate; 15-21 severe): 0 Source: Developed by Drs. Fernando Stauffer, Selam Cabrera, Rao Roche and colleagues, with an educational hari from [employer]. MICHELLE-7 Assessment Billing MICHELLE-7 Assessment Tool: MICHELLE-7 Assessment 40052 Review of Systems Const All systems reviewed & are unremarkable except as noted in HPI and below Eyes Reports no additional complaints, Denies change in vision and Denies other visual disturbances Card Denies chest pain at rest, Denies chest pain with activity, Denies edema, Denies irregular heart rhythm, Denies claudication, Denies dyspnea, Denies dyspnea on exertion, Denies orthopnea, Denies paroxysmal nocturnal dyspnea and Denies slow heart rate Resp Denies cough, Denies dyspnea and Denies dyspnea on exertion GI Reports abdominal pain, Denies change in bowel habits, Reports constipation, Denies excessive flatus, Denies nausea and Denies vomiting Denies urinary incontinence, Denies urinary hesitancy and Denies urinary urgency Musc Denies abnormal gait, Denies atrophy, Denies deformity and Denies limited range of motion Skin/Breast Denies bleeding lesions, Denies changing lesions and Denies rash Neuro Denies abnormal gait, Denies behavioral changes and Denies lack of coordination Psych Denies behavioral changes Physical exam (Primary Care) Vital Signs: Last Vital Signs BP 130/70 10/15/23 09:47 BMI result Body Mass Index 25.0 Tobacco/Smoking Status: Tobacco use Status Tobacco use date assessed 10/15/23 10/15/23 09:50 Patient Tobacco Use Status Former Tobacco user 10/15/23 09:46 Tobacco use type Cigarette 10/15/23 09:46 e-Cigarette/Vaping Use Never Used 10/15/23 09:46 PHQ-9: PHQ-9 Score PHQ-9: Total score 0 10/15/23 10:06 Depression Screening Interpretation: Negative Thrive Assessment: Date of Thrive Assessment Date Thrive assessed 10/15/23 10/15/23 09:50 Currently or been in a relationship where the following occur: no concerns reported Eyes General: appearance normal, both eyes and all related structures Eyelids: Yes eyelids normal Conjunctivae: conjunctivae normal Neck Neck: Yes normal visual inspection and Yes supple Resp Effort & Inspection: normal respiratory effort Auscultation: clear to auscultation bilaterally Cardio Jugular venous distension: no JVD Rate: regular rate Rhythm: regular rhythm Heart sounds: S1 normal heart sound present and S2 normal heart sound present GI Inspection: Yes normal to inspection Palpation (GI): Soft to palpation and Tenderness to palpation present (GI) in the RLQ Auscultation: normal bowel sounds Assessment and Plan Assessment & Plan (1) Hypothyroidism: Code(s): E03.9 - Hypothyroidism, unspecified Qualifiers: Hypothyroidism type: unspecified Qualified Code(s): E03.9 - Hypothyroidism, unspecified Plan: Continue levothyroxine. Monitor TSH. (2) Essential hypertension: Code(s): I10 - Essential (primary) hypertension Plan: Continue enalapril. Blood pressure goal is equal or less than 130/80. (3) Pure hypercholesterolemia: Code(s): E78.00 - Pure hypercholesterolemia, unspecified Plan: Continue statins. (4) Right lower quadrant abdominal pain: Code(s): R10.31 - Right lower quadrant pain Plan: Ultrasound of the abdomen and labs ordered. Orders: Orders UA CC w/rflx Micro + Cult Today R30.0 - Dysuria Complete Blood Count Auto Diff Today R10.31 - Right lower quadrant pain Thyroid Stimulating Hormone Today R10.31 - Right lower quadrant pain Comprehensive Met. Panel Today R10.31 - Right lower quadrant pain US abdomen complete Today R10.31 - Right lower quadrant pain Medications: Changed From dicyclomine 20 mg PO BID To dicyclomine 20 mg PO TID 30 days 90 tabs 1RF Coding Level of Care Code Est Pt Level 4 (12739) Diagnoses Hypothyroidism, unspecified type E03.9 Hypothyroidism type: unspecified Essential hypertension I10 Pure hypercholesterolemia E78.00 Right lower quadrant abdominal pain R10.31 Additional Codes MICHELLE-7 Assessment Billing - MICHELLE-7 Assessment Tool: MICHELLE-7 Assessment 42422 ([id number]) Time Spent (min) 22
[2023-10-15 09:47] VITALS: BP 130/70; BMI 25.0
== END 2023-10-15 10:06 | disposition home or self-care (01) ==
PROVIDERS: PCP Internal Medicine; Visit Provider Internal Medicine
DX: E03.9 Hypothyroidism, unspecified (principal); I10 Essential (primary) hypertension; E78.00 Pure hypercholesterolemia, unspecified; R10.31 Right lower quadrant pain
CPT/HCPCS: 99214

== ENCOUNTER 2023-10-15 10:16 | Outpatient (REF) | payer MEDICARE, MEDICAID, SELFPAY ==
[2023-10-15 11:20] LABS: MANUAL DIFF FLAG NO
[2023-10-15 11:55] LABS: Basophils Percent Auto 0.4 % (0-2); Eosinophils Absolute Auto 0.3 X10*3/uL (0.0-0.4); Eosinophils Percent Auto 2.4 % (0-4); Hematocrit 42.2 % (37.0-47.0); Hemoglobin 13.6 g/dl (12.0-16.0); Imm Gran Abs Auto 0.04 X10*3/uL (0.00-0.03); Imm Gran Pct Auto 0.4 % (0.0-0.4); Lymphocytes Absolute Auto 1.9 X10*3/uL (1.2-4.9); Lymphocytes Percent Auto 18.6 % (20-40); Mean Corpuscular HGB Conc 32.2 g/dl (31.0-35.0); Mean Corpuscular Hemoglobin 29.8 pg (27.0-33.0); Mean Corpuscular Volume 92.3 fL (80.0-98.0); Mean Platelet Volume 9.7 fL (9.4-12.3); Monocytes Absolute Auto 0.7 X10*3/uL (0.1-1.2); Monocytes Percent Auto 6.8 % (2-11); Neutrophils Absolute Auto 7.3 x10*3/uL (2.0-8.3); Neutrophils Percent Auto 71.4 % (45-73); Platelet Count 248 X10*3/uL (160-400); Red Blood Count 4.57 X10*6/uL (4.20-5.50); Red Cell Distribution Width 14.2 % (11.0-16.0); White Blood Count 10.2 X10*3/uL (4.8-10.8)
[2023-10-15 12:41] LABS: Alanine Aminotransferase 10 U/L (0-31); Albumin Level 3.9 g/dL (3.5-5.0); Alkaline Phosphatase 91 U/L (39-117); Anion Gap 14 (12-20); Aspartate Amino Transferase 14 U/L (5-31); Bilirubin Total 0.5 mg/dL (0.0-1.0); Blood Urea Nitrogen 15 mg/dL (9-16); Calcium 9.4 mg/dL (8.4-10.2); Carbon Dioxide 27 mmol/L (22-29); Chloride 106 mmol/L (96-108); Estimated Glomerular Filt Rate > 60; Glucose Random 95 mg/dL (60-115); Potassium 4.1 mmol/L (3.3-5.1); Sodium 143 mmol/L (135-145); Total Protein 6.7 g/dL (6.5-8.0)
[2023-10-15 12:50] LABS: Thyroid Stimulating Hormone 1.25 uIU/mL (0.32-4.0)
[2023-10-15 13:59] LABS: Appearance Urine Clear; Color Urine Yellow; Glucose Urine UA Negative (Negative); Leukocyte Esterase Urine Small (1+) (Negative); Nitrite Urine Negative (Negative); PH 5.5 (5.0-9.0); UMIC TRIGGER UACC YES; Urine Blood Negative (Negative); Urine Ketones Negative (Negative); Urine Protein Negative (Neg-Trace)
[2023-10-15 14:20] LABS: Bacteria Urine None Seen (None Seen); Hyaline Casts Urine 0-2 /LPF (0-2); RBC Urine 0-2 /HPF (0-2); Squamous Epithelial Cell Urine 0-2 /HPF (0-2); UACC Culture Trigger YES; WBC Urine 0-5 /HPF (0-5)
== END 2023-10-15 10:17 | disposition home or self-care (01) ==
LOC: HO.LAB 10:16
PROVIDERS: PCP Internal Medicine; Visit Provider Internal Medicine
DX: R10.31 Right lower quadrant pain (principal); E03.9 Hypothyroidism, unspecified; R30.0 Dysuria
CPT/HCPCS: 36415; 80053; 81001; 81003; 84443; 85025; 87086

== ENCOUNTER 2023-10-16 11:13 | Outpatient (REF) | payer MEDICARE, MEDICAID, SELFPAY ==
--- NOTE | ~2023-10-16 | US_ITS ---
EXAMINATION: US ABDOMEN COMPLETE CLINICAL INFORMATION: Right lower quadrant discomfort. COMPARISON: None available. TECHNIQUE: Real-time imaging of the abdominal viscera. FINDINGS: PANCREAS: The pancreatic head and body appear normal but the tail is obscured by bowel gas. ABDOMINAL AORTA: The proximal, mid, and distal segments are normal in caliber. INFERIOR VENA CAVA: Visualized portions are normal. LIVER: Normal. The liver is normal in size. The liver contour is normal. Parenchymal echogenicity is normal. No focal hepatic lesion. There is no intrahepatic biliary duct dilatation seen. GALLBLADDER: Normal. The gallbladder is physiologically distended without evidence of stones, sludge, polyps, wall thickening or pericholecystic fluid. COMMON BILE DUCT: Normal in caliber measuring 0.46 cm in diameter. RIGHT KIDNEY: Normal. No hydronephrosis. No renal calculi or focal parenchymal lesions. The kidney measures 8.8 cm in maximum dimension. LEFT KIDNEY: Normal. No hydronephrosis. No renal calculi or focal parenchymal lesions. The kidney measures 9.0 cm in maximum dimension. SPLEEN: Normal. The spleen measures 9.0 cm in maximum dimension. FREE FLUID: None. The area of the right lower quadrant is scanned. Status post appendectomy and partial hysterectomy and hernia repair. The right ovary was not seen. No fluid collections or masses are observed. US/US abdomen complete IMPRESSION: Unremarkable exam.
== END 2023-10-16 11:14 | disposition home or self-care (01) ==
LOC: HO.HMGCX 11:13
PROVIDERS: PCP Internal Medicine; Visit Provider Internal Medicine
DX: R10.31 Right lower quadrant pain (principal)
CPT/HCPCS: 76700

== ENCOUNTER 2023-10-30 11:04 | Outpatient (REF) | payer MEDICARE, MEDICAID, SELFPAY ==
--- NOTE | ~2023-10-30 | CT_ITS ---
EXAMINATION: CT ABDOMEN AND PELVIS WITH CONTRAST CLINICAL INFORMATION: Abdominal pain. Rule out diverticulitis. COMPARISON: Previous abdominal ultrasound 10/16/[address] of the abdomen and pelvis May 2021 TECHNIQUE: Multidetector volumetric images were obtained from the superior aspect of the liver through the pubic symphysis following administration 85 mL of Omnipaque 350 intravenous contrast. Sagittal and coronal reformatted images were obtained on the technologist's workstation. Oral contrast: Yes This CT examination was performed using dose optimization techniques as appropriate, variously including the following: *Automated exposure control *Adjustment of mA and/or kV according to patient size (this includes techniques or standardized protocols for targeted exams where dose is matched to indication/reason for exam; i.e. extremities or head) *Use of iterative reconstruction technique DLP: 335 mGy-cm FINDINGS: LUNG BASES: The visualized lung bases are clear. Large esophageal hernia or intrathoracic stomach.. LIVER, GALLBLADDER, AND BILIARY TREE: The liver is normal in size, shape, and attenuation. No focal hepatic lesion or biliary ductal dilatation is present. The gallbladder is unremarkable with no evidence of radiopaque gallstones, gallbladder wall thickening, or obvious pericholecystic inflammatory changes. PANCREAS: Fatty infiltration of the pancreas. The pancreas is otherwise normal SPLEEN: Unremarkable. ADRENAL GLANDS: Unremarkable. KIDNEYS AND URETERS: The kidneys are normal in size, shape, and attenuation. No hydronephrosis, hydroureter, or calculi seen. Small bilateral low-attenuation renal lesions probably representing cysts. No imaging follow-up recommended. No perinephric stranding. BLADDER: Unremarkable. GASTROINTESTINAL TRACT: Constipation and diverticulosis. No evidence of diverticulitis. The small and large bowel are unremarkable. The appendix is unremarkable. ABDOMINAL WALL: I lateral inguinal hernias containing fat, left greater than right. LYMPH NODES: Normal. VASCULAR: Atherosclerotic disease. No aneurysm. PELVIC VISCERA: Uterus appears to have been removed. No pelvic mass. OSSEOUS STRUCTURES: Degenerative changes of the spine. CT/CT abdomen pelvis w IV con IMPRESSION: Constipation and diverticulosis. No evidence of diverticulitis. Large esophageal hernia or intrathoracic stomach. Fleischner guidelines were followed.
[2023-10-30] MEDS: iohexoL 350 MG/ML 100 ML INFUS..BTL 85 ML IV (14:01)
[2023-10-30] MEDS: Barium Sulfate Oral (Vanilla) 450 ML ORAL.SUSP 900 ML PO (14:02)
== END 2023-10-30 11:05 | disposition home or self-care (01) ==
LOC: HO.CT 11:04
PROVIDERS: PCP Internal Medicine; Visit Provider Internal Medicine
DX: R10.9 Unspecified abdominal pain (principal)
CPT/HCPCS: 74177; Q9967

== ENCOUNTER 2023-11-12 07:32 | Outpatient (AMB) | payer MEDICARE, MEDICAID, SELFPAY ==
--- NOTE | 2023-11-12 07:52 | A.OFFVIS_ITS ---
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 The patient describes her pain as sharp in nature. Her pain has gotten worse over the last few months in spite of continued non operative treatments. She has done physical therapy exercises which aggravated her pain. She has also tried Tylenol which gives only mild relief. The patient has difficulty walking because of her pain. She also reports intermittent weakness in her right leg. Allergies No Known Allergies [No Known Allergies*] Allergy (Verified 11/12/23 07:55) Medication List - Last Reconciled 11/12/23 by Garcia Canales MD atorvastatin 20 mg PO DAILY dicyclomine 20 mg PO TID 30 days enalapril maleate 20 mg PO DAILY 90 days levothyroxine 75 mcg PO QAM metronidazole 500 mg PO Q8H 7 days omeprazole 40 mg PO DAILY 90 days varicella-zoster gE-AS01B (PF) 50 mcg/0.5 mL IM PFSH Medical History Weight loss Screening for osteoporosis Left inguinal hernia GERD (gastroesophageal reflux disease) Hypothyroidism Essential hypertension Pure hypercholesterolemia Surgical History History of inguinal hernia repair (~1987) History of appendectomy History of hysterectomy Family History Father COPD (chronic obstructive pulmonary disease) Mother Acute CVA (cerebrovascular accident) Hypertension Alcoholism Brother Stomach cancer Paternal Grandmother Uterine cancer Family/Other FH: mental illness Maternal Grandmother Hypertension Social History Housing: House Alcohol intake: never Patient Tobacco Use Status: Former Tobacco user Tobacco use type: Cigarette e-Cigarette/Vaping Use: Never Used Second Hand Smoke Exposure: No service: No Current occupational status: retired Cognitive needs: No Hearing needs: No Vision needs: No Physical Exam Const Other: Well-nourished well-developed very friendly female awake alert and oriented x3 in no acute distress Back/Spine/Pelvis Other: Low back examination shows right-sided paraspinal muscle tenderness, pain with range of motion, positive straight leg raise test on the right at 70 degrees, 4/5 strength with testing of her right hip flexors and knee extensors when com pared to 5/5 strength on her left side Extrem Other: Right hip examination shows full range of motion when compared to her left hip with minimal discomfort, mild tenderness over her bursa Results Reviewed Results Reviewed: X-rays of the patient's right hip show mild diffuse joint space narrowing, no acute bony abnormalities Assessment & Plan Assessment & Plan (1) Low back pain: Code(s): M54.50 - Low back pain, unspecified (2) Low back pain radiating to right lower extremity: Code(s): M54.50 - Low back pain, unspecified; M79.604 - Pain in right leg Plan Ms. Wild presents with progressively worsening low back pain which radiates into her right leg and groin possibly due to lumbar stenosis versus a disc herniation. Thus, I will send her for an MRI of her lumbar spine for further evaluation. I will contact her by phone once the MRI results are available. She will call me prior to that time should her symptoms worsen in any way. Feel free to call me at any time should questions regarding her orthopedic management arise. Thank you very much for asking me to see this very friendly patient. I spent 22 minutes in reviewing the patient's records and imaging studies, seeing the patient and documenting in the medical record. Orders: Orders XR hip RT min 2V Today M25.551 - Pain in right hip MR lumbar spine wo con Today M54.50 - Low back pain, unspecified, M79.604 - Pain in right leg Coding Level of Care Code New Pt Level 2 (24209) Diagnoses Low back pain M54.50 Low back pain radiating to right lower extremity M54.50; M79.604
== END 2023-11-12 08:15 | disposition home or self-care (01) ==
PROVIDERS: PCP Internal Medicine; Visit Provider Orthopaedic Surgery
DX: M54.50 Low back pain, unspecified (principal); M79.604 Pain in right leg
CPT/HCPCS: 99202

== ENCOUNTER 2023-11-12 16:43 | Outpatient (REF) | payer MEDICARE, MEDICAID, SELFPAY ==
--- NOTE | ~2023-11-12 | XR_ITS ---
EXAMINATION: XR HIP, RIGHT CLINICAL INFORMATION: Right hip pain. COMPARISON: None available. TECHNIQUE: Two views of the right hip. FINDINGS: No fracture. Alignment is anatomic. Hip joint space is minimally narrowed superiorly with some supra-acetabular sclerosis. Soft tissues are unremarkable. Contrast media is seen in extensive colonic diverticula most likely from the 10/30/2023 CT scan. XR/XR hip RT min 2V IMPRESSION: Mild degenerative changes in the right hip.
== END 2023-11-12 16:44 | disposition home or self-care (01) ==
LOC: HO.HOSX 16:43
PROVIDERS: Visit Provider Orthopaedic Surgery
DX: M25.551 Pain in right hip (principal); M54.50 Low back pain, unspecified; M79.604 Pain in right leg; Z79.899 Other long term (current) drug therapy
CPT/HCPCS: 73502; 99202

== ENCOUNTER 2023-11-20 10:44 | Outpatient (AMB) | payer MEDICARE, MEDICAID, SELFPAY ==
--- NOTE | 2023-11-20 10:45 | MHC.PC.OV ---
Vital Signs 11/20/23 10:47 Height 4 ft 11 in Weight 121 lb BMI 24.4 BP 136/78 Blood Pressure Location Lt brachial Position Sitting Intake Visit Reasons: bp Intake Note: Patient here for a follow up BP Cannoneer Required: No Accompanied by: Self / Same As Patient Allergies No Known Allergies [No Known Allergies*] Allergy (Verified 11/20/23 10:59) Medication List - Last Reconciled 11/20/23 by Gretel Cornejo MD atorvastatin 20 mg PO DAILY dicyclomine 20 mg PO TID 30 days enalapril maleate 20 mg PO DAILY 90 days levothyroxine 75 mcg PO QAM omeprazole 40 mg PO DAILY 90 days varicella-zoster [id number]-AS01B (PF) 50 mcg/0.5 mL IM Tobacco use date assessed: 10/15/23 Fall risk assessment: No Falls in past year Last assessed Fall Risk: 11/20/23 Dental Screening Dental Screen Date: 11/20/23 Did you have a dental visit in the last 12 months?: Yes Did you have a dental problem in the last 6 months where you did not have access to dental care?: No Was dental information given to patient?: Patient has dentist HPI HPI Comments History of Present Illness Details This is an 83-year-old female with hypertension, pure hypercholesterolemia, hypothyroidism and GERD that comes today for follow-up on her conditions. Blood pressure stable. Last cholesterol was stable. TSH normal. GERD stable with PPIs. She has some dyspepsia that was relieved with dicyclomine recently added. Had a CT scan of the abdomen due to abdominal discomfort ruling out diverticulitis and showing a large esophageal hernia. She was referred to Gastroenterology but has not heard anything from them. She declines being referred to general surgery for her hernia. Does have some right hip pain due to osteoarthritis that has been relieved. She also has some chronic idiopathic constipation and I will add MiraLax daily for this problem. No chest pain or shortness of breath. Compliant with medications. [facility] Medical History (Updated 11/20/23 @ 12:36 by Gretel Cornejo MD) Weight loss Screening for osteoporosis Left inguinal hernia GERD (gastroesophageal reflux disease) Hypothyroidism Essential hypertension Pure hypercholesterolemia Surgical History History of inguinal hernia repair (~1987) History of appendectomy History of hysterectomy Family History Father COPD (chronic obstructive pulmonary disease) Mother Acute CVA (cerebrovascular accident) Hypertension Alcoholism Brother Stomach cancer Paternal Grandmother Uterine cancer Family/Other FH: mental illness Maternal Grandmother Hypertension Social History Housing: House Alcohol intake: never Patient Tobacco Use Status: Former Tobacco user Tobacco use type: Cigarette e-Cigarette/Vaping Use: Never Used Second Hand Smoke Exposure: No service: No Current occupational status: retired Cognitive needs: No Hearing needs: No Vision needs: No Questionnaire Thrive Questionnaire Date Thrive assessed: 10/15/23 MICHELLE-7 AMB Questionnaire MICHELLE-7 Date MICHELLE - 7 assessed: 10/15/23 Source: Developed by Drs. Fernando Stauffer, Selam Cabrera, Rao Roche and colleagues, with an educational hari from [employer]. Review of Systems Const All systems reviewed & are unremarkable except as noted in HPI and below Eyes Reports no additional complaints, Denies change in vision and Denies other visual disturbances Card Denies chest pain at rest, Denies chest pain with activity, Denies edema, Denies irregular heart rhythm, Denies claudication, Denies dyspnea, Denies dyspnea on exertion, Denies orthopnea, Denies paroxysmal nocturnal dyspnea and Denies slow heart rate Resp Denies cough, Denies dyspnea and Denies dyspnea on exertion GI Denies abdominal pain, Denies change in bowel habits, Reports constipation, Denies excessive flatus, Denies nausea and Denies vomiting Denies urinary incontinence, Denies urinary hesitancy and Denies urinary urgency Musc Denies abnormal gait, Denies atrophy, Denies deformity and Denies limited range of motion Skin/Breast Denies bleeding lesions, Denies changing lesions and Denies rash Neuro Denies abnormal gait, Denies behavioral changes and Denies lack of coordination Psych Denies behavioral changes Physical exam (Primary Care) Vital Signs: Last Vital Signs BP 136/78 11/20/23 10:47 BMI result Body Mass Index 24.4 Tobacco/Smoking Status: Tobacco use Status Tobacco use date assessed 10/15/23 11/20/23 10:46 Patient Tobacco Use Status Former Tobacco user 11/20/23 10:46 Tobacco use type Cigarette 11/20/23 10:46 e-Cigarette/Vaping Use Never Used 11/20/23 10:46 Thrive Assessment: Date of Thrive Assessment Date Thrive assessed 10/15/23 11/20/23 10:46 Eyes General: appearance normal, both eyes and all related structures Eyelids: Yes eyelids normal Conjunctivae: conjunctivae normal Neck Neck: Yes normal visual inspection and Yes supple Resp Effort & Inspection: normal respiratory effort Auscultation: clear to auscultation bilaterally Cardio Jugular venous distension: no JVD Rate: regular rate Rhythm: regular rhythm Heart sounds: S1 normal heart sound present and S2 normal heart sound present Extrem General: Yes full ROM Assessment and Plan Assessment & Plan (1) Essential hypertension: Code(s): I10 - Essential (primary) hypertension Plan: Continue lisinopril. Blood pressure goal is equal or less than 130/80. (2) Pure hypercholesterolemia: Code(s): E78.00 - Pure hypercholesterolemia, unspecified Plan: Continue statins. (3) Hypothyroidism: Code(s): E03.9 - Hypothyroidism, unspecified Qualifiers: Hypothyroidism type: unspecified Qualified Code(s): E03.9 - Hypothyroidism, unspecified Plan: Continue levothyroxine. (4) GERD (gastroesophageal reflux disease): Code(s): K21.9 - Gastro-esophageal reflux disease without esophagitis Qualifiers: Esophagitis presence: esophagitis presence not specified Qualified Code(s): K21.9 - Gastro-esophageal reflux disease without esophagitis Plan: Continue PPIs. (5) Chronic idiopathic constipation: Code(s): K59.04 - Chronic idiopathic constipation Plan: Start MiraLax. Orders: Orders Lipid Panel 4 Months E78.5 - Hyperlipidemia, unspecified Comprehensive [place]. Panel Fast 4 Months K21.9 - Gastro-esophageal reflux disease without esophagitis Vitamin D 25-OH Total 4 Months E55.9 - Vitamin D deficiency, unspecified Thyroid Stimulating Hormone 4 Months E03.9 - Hypothyroidism, unspecified Medications: New polyethylene glycol 3350 17 grams PO DAILY 30 days PRN 510 grams 6RF constipation Coding Level of Care Code Est Pt Level 4 (91409) Diagnoses Essential hypertension I10 Pure hypercholesterolemia E78.00 Hypothyroidism, unspecified type E03.9 Hypothyroidism type: unspecified Gastroesophageal reflux disease, unspecified whether esophagitis present K21.9 Esophagitis presence: esophagitis presence not specified Chronic idiopathic constipation K59.04 Time Spent (min) 25
[2023-11-20 10:47] VITALS: BP 136/78; BMI 24.4
== END 2023-11-20 11:16 | disposition home or self-care (01) ==
PROVIDERS: PCP Internal Medicine; Visit Provider Internal Medicine
DX: I10 Essential (primary) hypertension (principal); E78.00 Pure hypercholesterolemia, unspecified; E03.9 Hypothyroidism, unspecified; K21.9 Gastro-esophageal reflux disease without esophagitis; K59.04 Chronic idiopathic constipation
CPT/HCPCS: 99214

== ENCOUNTER 2023-12-18 13:27 | Outpatient (AMB) | payer MEDICARE, MEDICAID, SELFPAY ==
--- NOTE | 2023-12-18 13:31 | A.OFFVIS_ITS ---
Intake Vital Signs 12/18/23 13:33 Height 4 ft 11 in Weight 116 lb 13.52 oz BMI 23.6 BP 134/73 Blood Pressure Location Lt brachial Position Sitting Pulse 104 H Intake Visit Reasons: RLQ Intake Note: Marquita presents in the office as a new patient for RLQ pains. CC: She states that she suffers from diarrhea. Since she took the miralax her bowels have been off - she did not have this issue prior to the miralax. Pains are on and off and only in the RLQ. [employer] Manager Required: No Allergies No Known Allergies [No Known Allergies*] Allergy (Verified 12/18/23 13:34) HPI HPI Comments History of Present Illness Details This is an 83 y.o F with PMH of who is here for management of diverticulosis. Pt reports a longstanding history of divericulosis going back many decades. Has had a few flares since however in just last year alone she reports having at least 3-4 flares. With this has severe RLQ cramping and pain with frequent BMs. Sometimes has blood on wiping which she thinks is from hemorrhoids. Most recent flare was in Oct and reports started taking Abx and had a Ct scan 2 weeks after which did not show any diverticulitis. Outside of these episodes, BMs are regular does not think they are thin, also sometimes has to go in nighttime, which is new for her. Also reports unintentional weight loss of around 15 lbs in the past one year. CT abdomen pelvis ordered by PCP for question diverticulitis also shows large paraesophageal hernia, which appears to be unchanged from 2020. Patient does not report any issues with swallowing, regurgitation, nausea. PFSH Medical History Weight loss Screening for osteoporosis Left inguinal hernia GERD (gastroesophageal reflux disease) Hypothyroidism Essential hypertension Pure hypercholesterolemia Surgical History Hx of colonoscopy History of inguinal hernia repair (~1987) History of appendectomy History of hysterectomy Family History Father COPD (chronic obstructive pulmonary disease) Mother Acute CVA (cerebrovascular accident) Hypertension Alcoholism Brother Stomach cancer Paternal Grandmother Uterine cancer Family/Other FH: mental illness Maternal Grandmother Hypertension Social History Housing: House Alcohol intake: never Patient Tobacco Use Status: Former Tobacco user Tobacco use type: Cigarette e-Cigarette/Vaping Use: Never Used Second Hand Smoke Exposure: No service: No Current occupational status: retired Cognitive needs: No Hearing needs: No Vision needs: No Review of Systems Const All systems reviewed & are unremarkable except as noted in HPI and below Physical Exam Vital Signs: Last Vital Signs Pulse 104 H 12/18/23 13:33 BP 134/73 12/18/23 13:33 BMI result Body Mass Index 23.6 No acute distress Nonicteric Abdomen soft, nontender, nondistended No lower extremity edema Assessment & Plan Assessment & Plan (1) Chronic idiopathic constipation: Code(s): K59.04 - Chronic idiopathic constipation (2) Diverticulosis: Code(s): K57.90 - Diverticulosis of intestine, part unspecified, without perforation or abscess without bleeding (3) Esophageal hernia: Code(s): K44.9 - Diaphragmatic hernia without obstruction or gangrene (4) Encounter for diagnostic colonoscopy due to change in bowel habits: Code(s): R19.4 - Change in bowel habit (5) Weight loss: Code(s): R63.4 - Abnormal weight loss Plan Reviewed the change in bowel habits could very well be from diverticular disease such as SUDD vs SCAD however, given relatively subacute onset within the past year at this age, along with unexplained weight loss, will be pertinent to do a diagnostic colonoscopy. This will be set up in at least 2-3 months, to give required interval after her presumed terms of diverticulitis. In addition, will also obtain a barium swallow to evaluate the paraesophageal hernia, based on the findings, may need an upper endoscopy which can be added on to her colonoscopy for that day. Split PEG prep instructions reviewed with the patient and handout provided as well. Follow-up after procedure Orders: Orders FL barium swallow 12/18/23 K44.9 - Diaphragmatic hernia without obstruction or gangrene Medications: New peg 3350-electrolytes 236-22.74-6.74 -5.86 gram (Golytely) as per split prep instructions, until fecal effluent is clear 240 mL PO Q10M 4,000 mL 0RF colonoscopy Discontinued polyethylene glycol 3350 Discontinued Reason: Patient no longer taking 17 grams PO DAILY 30 days PRN 510 grams 6RF constipation Coding Level of Care Code New Pt Level 4 (58513) Diagnoses Chronic idiopathic constipation K59.04 Diverticulosis K57.90 Esophageal hernia K44.9 Encounter for diagnostic colonoscopy due to change in bowel habits R19.4 Weight loss R63.4
[2023-12-18 13:33] VITALS: BP 134/73; PULSE 104; BMI 23.6
== END 2023-12-18 14:44 | disposition home or self-care (01) ==
PROVIDERS: PCP Internal Medicine; Visit Provider Internal Medicine
DX: K59.04 Chronic idiopathic constipation (principal); K57.90 Diverticulosis of intestine, part unspecified, without perforation or abscess without bleeding; K44.9 Diaphragmatic hernia without obstruction or gangrene; R63.4 Abnormal weight loss
CPT/HCPCS: 99204

== ENCOUNTER → 2023-12-18 13:27 | Outpatient (BNVA) | payer MEDICARE, MEDICAID, SELFPAY | PROVIDERS: PCP Internal Medicine; Visit Provider Internal Medicine | DX: K59.04 Chronic idiopathic constipation (principal); K57.90 Diverticulosis of intestine, part unspecified, without perforation or abscess without bleeding; K44.9 Diaphragmatic hernia without obstruction or gangrene; R19.4 Change in bowel habit; R63.4 Abnormal weight loss | CPT/HCPCS: 99202 ==

== ENCOUNTER 2024-02-17 07:44 | Outpatient (REF) | payer MEDICARE, MEDICAID, SELFPAY ==
--- NOTE | ~2024-02-17 | FL_ITS ---
EXAMINATION: XR FLUOROSCOPY UPPER GI WITH AIR CLINICAL INFORMATION: Evaluate size hiatal hernia COMPARISON: CT October 2023 TECHNIQUE: Fluoroscopic air contrast upper GI examination was performed utilizing standard techniques with thin and thick barium and effervescent granules. Numerous spot images were obtained. FINDINGS: Dual and single contrast images of the esophagus demonstrate a normal caliber and mucosal pattern. The esophagus has an S shape contour due to the presence of a large paraesophageal hernia. No evidence of stricture, mass, or ulcerations identified. Esophageal peristalsis is moderately disorganized. A large paraesophageal hernia is present, with the entire fundus of the stomach located in the thoracic cavity. No significant gastroesophageal reflux was seen during the course of the examination and on reflux views. Dual contrast and single contrast images of the stomach demonstrate the fundus of the stomach located in the thoracic cavity. There are multiple foci of contrast pooling in the fundus of the stomach that likely represent superficial aphthous ulcers. No masses are present. Contrast freely passed into the gastric antrum and duodenal bulb without delay. Single and air-contrast images of the duodenal bulb demonstrate no abnormality. The duodenal sweep has a normal appearance, course, and mucosal fold appearance. The imaged proximal jejunum has a normal fold pattern and caliber. FLUOROSCOPY TIME: 4 minutes 18 seconds Number of Spot Images: 13 Number of Cine: 14 DOSE AREA PRODUCT: 2021 uGy-m2 (microgray-meter squared) FL/FL barium swallow with air IMPRESSION: 1. Esophageal dysmotility 2. Large paraesophageal hernia with the entire fundus located in the thoracic cavity. 3. Multiple foci of contrast pooling in the fundus the stomach that likely represent superficial aphthous ulcers. Recommend correlation with EGD This procedure was performed by Marquis Garcia PA-C, and supervised by Dr. Contreras
== END 2024-02-17 07:45 | disposition home or self-care (01) ==
LOC: HO.XRAY 07:44
PROVIDERS: PCP Internal Medicine; Visit Provider Internal Medicine
DX: K44.9 Diaphragmatic hernia without obstruction or gangrene (principal)
CPT/HCPCS: 74221

== ENCOUNTER → 2024-02-17 07:45 | Outpatient (BNV) | payer MEDICARE, MEDICAID, SELFPAY | PROVIDERS: PCP Internal Medicine; Visit Provider Physician Assistant Surgical | DX: K44.9 Diaphragmatic hernia without obstruction or gangrene (principal) | CPT/HCPCS: 74246 ==

== ENCOUNTER 2024-03-18 06:01 | Outpatient (REF) | payer MEDICARE, MEDICAID, SELFPAY ==
[2024-03-18 08:00] LABS: Appearance Urine Clear; Color Urine Yellow; Glucose Urine UA Negative (Negative); Leukocyte Esterase Urine Trace (Negative); Nitrite Urine Negative (Negative); Specific Gravity - Urine 1.025 (1.005-1.025); UMIC TRIGGER UACC YES; Urine Blood Negative (Negative); Urine Ketones Negative (Negative); Urine Protein Negative (Neg-Trace)
[2024-03-18 08:09] LABS: Bacteria Urine None Seen (None Seen); Hyaline Casts Urine 0-2 /LPF (0-2); RBC Urine 0-2 /HPF (0-2); Squamous Epithelial Cell Urine 0-2 /HPF (0-2); WBC Urine 0-5 /HPF (0-5)
[2024-03-18 08:29] LABS: Alanine Aminotransferase 17 U/L (0-31); Albumin Level 3.7 g/dL (3.5-5.0); Alkaline Phosphatase 55 U/L (39-117); Anion Gap 12 (12-20); Aspartate Amino Transferase 11 U/L (5-31); Bilirubin Total 0.6 mg/dL (0.0-1.0); Blood Urea Nitrogen 31 mg/dL (9-16); Carbon Dioxide 28 mmol/L (22-29); Chloride 107 mmol/L (96-108); Cholesterol 149 mg/dL (<200); Estimated Glomerular Filt Rate > 60; Glucose Fasting 89 mg/dL (60-99); HDL Cholesterol 61 mg/dL (>40); LDL Cholesterol Calculated 68 mg/dL (<100); Sodium 143 mmol/L (135-145); Total Protein 5.9 g/dL (6.5-8.0); Triglycerides 100 mg/dL (<150)
[2024-03-18 08:33] LABS: Thyroid Stimulating Hormone 0.57 uIU/mL (0.32-4.0)
== END 2024-03-18 06:02 | disposition home or self-care (01) ==
LOC: HO.LAB 06:01
PROVIDERS: PCP Internal Medicine; Visit Provider Internal Medicine
DX: I10 Essential (primary) hypertension (principal); E03.9 Hypothyroidism, unspecified; E78.5 Hyperlipidemia, unspecified; E55.9 Vitamin D deficiency, unspecified
CPT/HCPCS: 36415; 80053; 80061; 81001; 82306; 84443

== ENCOUNTER 2024-03-23 08:17 | Outpatient (AMB) | payer MEDICARE, MEDICAID, SELFPAY ==
[2024-03-23 08:39] VITALS: BP 136/70; PULSE 75; O2SAT 97; BMI 23.6
--- NOTE | 2024-03-23 08:39 | A.OFFPC_ITS ---
Vital Signs 03/23/24 08:39 Height 4 ft 11 in Weight 117 lb BMI 23.6 BP 136/70 Blood Pressure Location Lt brachial Position Sitting Pulse 75 Pulse Source Pulse Oximeter Pulse Oximetry (%) 97 Oxygen Delivery Method Room Air Intake Visit Reasons: Annual, Rash on back Geographic Information Systems Engineer Required: No Accompanied by: Self / Same As Patient Allergies dicyclomine [From A-Spas (dicyclomine)] Adverse Reaction (Intermediate, Verified 03/23/24 09:08) diarrhea Medication List - Last Reconciled 03/23/24 by Gretel Cornejo MD acetaminophen (Tylenol Extra Strength) 500 mg PO Q6H PRN atorvastatin 20 mg PO DAILY cholecalciferol (vitamin D3) 25 mcg PO DAILY cyclosporine 0.05% (Restasis) 1 drp ophthalmic (eye) BID enalapril maleate 20 mg PO DAILY 90 days levothyroxine 75 mcg PO QAM prednisone 20 mg PO BID Tobacco use date assessed: 10/15/23 Fall risk assessment: No Falls in past year Last assessed Fall Risk: 03/23/24 Dental Screening Dental Screen Date: 03/23/24 Did you have a dental visit in the last 12 months?: Yes Did you have a dental problem in the last 6 months where you did not have access to dental care?: No Was dental information given to patient?: Patient has dentist HPI HPI Comments History of Present Illness Details This is an 83-year-old female with hypertension, pure hypercholesterolemia, hypothyroidism and GERD that comes today for follow-up on her conditions. Blood pressure stable. Cholesterol well controlled with statins and reports no side effects. TSH normal. GERD stable with PPIs. She took prednisone prescribed by Rheumatology due to bilateral hand swelling and pa in secondary to arthritis. Has an abnormal barium swallow and will have endoscopy next month. She also has mild right hip arthritis and was evaluated by ortho which currently is pain free. She did not needed any procedure done in the hip. She complains of a rash in the back bilateral macular that started today and it is very itchy. Will be prescribed antihistamines for that matter. [facility] Medical History Weight loss Screening for osteoporosis Left inguinal hernia GERD (gastroesophageal reflux disease) Hypothyroidism Essential hypertension Pure hypercholesterolemia Surgical History Hx of colonoscopy History of inguinal hernia repair (~1987) History of appendectomy History of hysterectomy Family History Father COPD (chronic obstructive pulmonary disease) Mother Acute CVA (cerebrovascular accident) Hypertension Alcoholism Brother Stomach cancer Paternal Grandmother Uterine cancer Family/Other FH: mental illness Maternal Grandmother Hypertension Social History Housing: House Alcohol intake: never Patient Tobacco Use Status: Former Tobacco user Tobacco use type: Cigarette e-Cigarette/Vaping Use: Never Used Second Hand Smoke Exposure: No service: No Current occupational status: retired Cognitive needs: No Hearing needs: No Vision needs: Yes Questionnaire PHQ-9 Over the last 2 weeks, how often have you been bothered by any of the following problems? 1. Little interest or pleasure in doing things: not at all 2. Feeling down, depressed, or hopeless: not at all 3. Trouble falling or staying asleep, or sleeping too much: not at all 4. Feeling tired or having little energy: not at all 5. Poor appetite or overeating: not at all 6. Feeling bad about yourself - or that you are a failure or have let yourself or your family down: not at all 7. Trouble concentrating on things, such as reading the newspaper or watching television: not at all 8. Moving or speaking so slowly that other people could have noticed. Or the opposite - being so fidgety or restless that you have been moving around a lot more than usual: not at all 9. Thoughts that you would be better off or of hurting yourself in some way: not at all Total score: 0 Depression Screening Interpretation: Negative Depression Screening Done: Yes 54268 - PHQ-9 Billing: Yes Source: Developed by Drs. Fernando Stauffer, Selam Cabrera, Rao Roche and colleagues, with an educational hari from [employer]. Thrive Questionnaire Date Thrive assessed: 10/15/23 AUDIT C Alcohol Use Questionnaire (AUDIT-C) 1. How often do you have a drink containing alcohol?: Never Total Score: 0 MICHELLE-7 AMB Questionnaire MICHELLE-7 Date MICHELLE - 7 assessed: 10/15/23 Source: Developed by Drs. Fernando Stauffer, Selam Cabrera, Rao Roche and colleagues, with an educational hari from [employer]. Review of Systems Const All systems reviewed & are unremarkable except as noted in HPI and below ENT Denies change in voice, Denies nasal discharge and Denies sinus pain Card Denies chest pain at rest, Denies chest pain with activity, Denies edema, Denies irregular heart rhythm, Denies claudication, Denies dyspnea, Denies dyspnea on exertion, Denies orthopnea, Denies paroxysmal nocturnal dyspnea and Denies slow heart rate Resp Denies cough, Denies dyspnea and Denies dyspnea on exertion GI Denies abdominal pain, Denies change in bowel habits, Denies excessive flatus, Denies nausea and Denies vomiting Physical exam (Primary Care) Vital Signs: Last Vital Signs Pulse 75 03/23/24 08:39 BP 136/70 03/23/24 08:39 Pulse Ox 97 03/23/24 08:39 Oxygen Delivery Method Room Air 03/23/24 08:39 BMI result Body Mass Index 23.6 Tobacco/Smoking Status: Tobacco use Status Tobacco use date assessed 10/15/23 03/23/24 08:40 Patient Tobacco Use Status Former Tobacco user 03/23/24 08:40 Tobacco use type Cigarette 03/23/24 08:40 e-Cigarette/Vaping Use Never Used 03/23/24 08:40 PHQ-9: PHQ-9 Score PHQ-9: Total score 0 03/23/24 08:40 Depression Screening Interpretation: Negative Thrive Assessment: Date of Thrive Assessment Date Thrive assessed 10/15/23 03/23/24 08:40 Resp Effort & Inspection: normal respiratory effort Auscultation: clear to auscultation bilaterally Cardio Jugular venous distension: no JVD Rate: regular rate Rhythm: regular rhythm Heart sounds: S1 normal heart sound present and S2 normal heart sound present Extrem General: Yes full ROM Assessment and Plan Assessment & Plan (1) Essential hypertension: Code(s): I10 - Essential (primary) hypertension Plan: Continue enalapril. Blood pressure goal is equal or less than 130/80. (2) Hypothyroidism: Code(s): E03.9 - Hypothyroidism, unspecified Qualifiers: Hypothyroidism type: unspecified Qualified Code(s): E03.9 - Hypothyroidism, unspecified Plan: Continue levothyroxine. (3) Pure hypercholesterolemia: Code(s): E78.00 - Pure hypercholesterolemia, unspecified Plan: Continue statins. (4) GERD (gastroesophageal reflux disease): Code(s): K21.9 - Gastro-esophageal reflux disease without esophagitis Qualifiers: Esophagitis presence: esophagitis presence not specified Qualified Code(s): K21.9 - Gastro-esophageal reflux disease without esophagitis Plan: Continue PPIs. Orders: Orders Vitamin D 25-OH Total 6 Months E55.9 - Vitamin D deficiency, unspecified Lipid Panel 6 Months E78.5 - Hyperlipidemia, unspecified Comprehensive [place]. Panel Fast 6 Months K21.9 - Gastro-esophageal reflux disease without esophagitis Thyroid Stimulating Hormone 6 Months E03.9 - Hypothyroidism, unspecified Medications: New cetirizine (Allergy Relief (cetirizine)) 10 mg PO DAILY 10 days PRN 10 tabs 0RF allergy symptoms Coding Level of Care Code Est Pt Level 4 (92645) Complex EM visit Add On G2211 Diagnoses Essential hypertension I10 Hypothyroidism, unspecified type E03.9 Hypothyroidism type: unspecified Pure hypercholesterolemia E78.00 Gastroesophageal reflux disease, unspecified whether esophagitis present K21.9 Esophagitis presence: esophagitis presence not specified Time Spent (min) 22
== END 2024-03-23 09:14 | disposition home or self-care (01) ==
PROVIDERS: PCP Internal Medicine; Visit Provider Internal Medicine
DX: I10 Essential (primary) hypertension (principal); E03.9 Hypothyroidism, unspecified; E78.00 Pure hypercholesterolemia, unspecified; K21.9 Gastro-esophageal reflux disease without esophagitis
CPT/HCPCS: 99214; G2211

== ENCOUNTER 2024-04-17 06:10 | Outpatient (REF) | payer MEDICARE, MEDICAID, SELFPAY ==
[2024-04-17 07:44] LABS: Alanine Aminotransferase 20 U/L (0-31); Albumin Level 3.5 g/dL (3.5-5.0); Alkaline Phosphatase 47 U/L (39-117); Anion Gap 12 (12-20); Aspartate Amino Transferase 10 U/L (5-31); Bilirubin Total 0.5 mg/dL (0.0-1.0); Blood Urea Nitrogen 25 mg/dL (9-16); Calcium 9.6 mg/dL (8.4-10.2); Carbon Dioxide 30 mmol/L (22-29); Chloride 106 mmol/L (96-108); Cholesterol 165 mg/dL (<200); Estimated Glomerular Filt Rate > 60; Glucose Fasting 92 mg/dL (60-99); HDL Cholesterol 78 mg/dL (>40); LDL Cholesterol Calculated 65 mg/dL (<100); Potassium 4.2 mmol/L (3.3-5.1); Sodium 144 mmol/L (135-145); Total Protein 6.1 g/dL (6.5-8.0); Triglycerides 113 mg/dL (<150)
[2024-04-17 08:02] LABS: Thyroid Stimulating Hormone 1.55 uIU/mL (0.32-4.0); Vitamin D 25-OH Total 41.4 ng/mL (>30)
[2024-04-17 08:11] LABS: Appearance Urine Clear; Color Urine Yellow; Glucose Urine UA Negative (Negative); Leukocyte Esterase Urine Negative (Negative); Nitrite Urine Negative (Negative); PH 6.5 (5.0-9.0); Urine Blood Negative (Negative); Urine Ketones Negative (Negative); Urine Protein Negative (Neg-Trace)
== END 2024-04-17 06:11 | disposition home or self-care (01) ==
LOC: HO.LAB 06:10
PROVIDERS: PCP Internal Medicine; Visit Provider Internal Medicine
DX: K21.9 Gastro-esophageal reflux disease without esophagitis (principal); E03.9 Hypothyroidism, unspecified; R30.0 Dysuria; E78.5 Hyperlipidemia, unspecified; E55.9 Vitamin D deficiency, unspecified
CPT/HCPCS: 36415; 80053; 80061; 81003; 82306; 84443

== ENCOUNTER → 2024-06-09 12:39 | Outpatient (REF) | payer MEDICARE, MEDICAID, SELFPAY ==
--- NOTE | 2024-06-09 12:42 | CA_ITS ---
Transthoracic Echocardiogram Patient (Last, First, Middle): Marquita Wild F Gender: Female Date of : 1940 Age: 83 Procedure Date: 06/09/2024 Procedure Type: Transthoracic Echocardiogram Location: OP Height: 149.86 cm Weight: 54.01 kg BSA: 1.48 m2 Heart Rate: bpm BP: 126 / 72 mmHg Information Officer: TO Referring MD: Gretel Cornejo MD Symptoms: R60.0 - Localized edema Study Quality: Adequate w contrast ECG Rhythm: Sinus Conclusions: - The left ventricular systolic function is normal. The calculated ejection fraction is 69% by biplane method. - No obvious valvular pathology seen on this study. Findings Procedure Information Contrast agent, definity, is being given per protocol without apparent complications. Left Ventricle Normal left ventricular cavity size. There is normal left ventricular wall thickness. The left ventricular systolic function is normal. The calculated ejection fraction is 69% by biplane method. There is no evidence of regional wall motion abnormalities. Evidence suggests grade I (mild) diastolic dysfunction. Right Ventricle Normal right ventricular cavity size and systolic function. Atria Both atria are normal in size. Aortic Valve There is a normal trileaflet aortic valve. There is no aortic valve stenosis. There is no aortic valve regurgitation. Mitral Valve The mitral valve appears normal. There is no mitral valve regurgitation. There is no mitral valve stenosis. Pulmonic Valve There is trace pulmonic valve regurgitation. Tricuspid Valve Normal tricuspid valve structure. There is mild tricuspid valve regurgitation. There is no evidence of pulmonary hypertension. Great Vessels The asc aorta is normal in size. Venous The inferior vena cava is normal in size and collapses greater than 50% with inspiration. Pericardium/Pleural There is no evidence of pericardial effusion. Prior Study Comparison No significant change compared to prior study dated: 05/09/2018. Recommendations, Care & Conclusions No obvious valvular pathology seen on this study. Measurements 2D Linear Measurements IVSd: 0.84 0.6-0.9/0.6-1.0 cm LVIDd: 3.66 3.9-5.3/4.2-5.9 cm LVIDd Index: 2.47 2.4-3.2/2.2-3.1 cm/m2 LVIDs: 2.26 2.0-3.6 cm LVPWd: 0.73 0.7-1.1 cm LA Diam: 2.30 2.7-3.8/3.0-4.0 cm LAIDs Index: 1.55 1.5-2.3 cm/m2 LV Mass: 98.22 67-162/88-224 g LV Mass Index: 66.36 43-95/49-115 g/m2 LVOT Diam: 1.90 3.0+(-)1.3 cm 2D Systolic Function EF 4C: 67.80 >55% EF 2C: 69.70 >55% EF BiP: 68.50 >55% Mitral Valve MV Pk E: 0.85 MV PK A: 1.07 MV Decel Time: 212.00 E/A: 0.80 E'Lateral: 4.68 E'Medial: 4.24 E/E' Med: 20.10 E/E' Lat: 18.20 PHT: 62.00 MVA PHT: 3.55 Decel [place]: 4.01 Aortic Valve AoV Pk Berny: 1.29 AoV Mn Berny: 0.83 AoV VTI: 0.26 AoV Pk Grad: 7.00 Aov Mn Grad: 3.00 JOSE M Cont.VTI: 2.17 LVOT LVOT Pk Berny: 0.92 LVOT Mn Berny: 0.54 LVOT VTI: 0.20 LVOT Pk Grad: 3.00 LVOT Mn Grad: 1.00 LVOT Diam: 1.90 LVOT Area: 2.84 Diastolic Function MV Pk E: 0.85 MV Pk A: 1.07 E/A: 0.80 E'Medial: 4.24 E/E' Med: 20.10 E' Laterial: 4.68 E/E' Lat: 18.20 Right Ventricle TAPSE (mm): 20.00 TVS' Berny: 15.10 Tricuspid Valve TR Pk Berny: 2.59 TR Pk Grad: 27.00 RA Press: 3.00 RVSP: 30.00 Great Vessels Aorta Sinus of Valsalva: 2.87 2.0-3.[address] [place]: 2.37 1.7-3.4 cm Ao Asc: 3.00 2.1-3.4 cm Updated in Other Vendor System with Status of Final Larry Jason MD electronically signed on 06/09/2024 4:42:41 PM with status of Final
== END ==
LOC: HO.CARD 12:39
PROVIDERS: PCP Internal Medicine; Visit Provider Internal Medicine
DX: R60.0 Localized edema (principal)
CPT/HCPCS: 93306; Q9957

== ENCOUNTER → 2024-06-09 12:42 | Outpatient (BNV) | payer MEDICARE, MEDICAID, SELFPAY | PROVIDERS: PCP Internal Medicine; Visit Provider Internal Medicine | DX: I36.1 Nonrheumatic tricuspid (valve) insufficiency (principal); I51.89 Other ill-defined heart diseases | CPT/HCPCS: 93306 ==

== ENCOUNTER 2024-08-20 06:29 | Day surgery (SDC) | payer MEDICARE, MEDICAID, SELFPAY ==
[2024-08-18 13:53] VITALS: BMI 23.6
--- NOTE | 2024-08-19 08:44 | HO.ANESPROP2 ---
Documented by User: Michelle Ferrer NP 08/19/24 08:46 HPI - Anesthesia Eval Consult details Narrative: 83yo F for Upper Endoscopy and Colonoscopy PMR - prednisone 20mg BID PMFSH Active Problems Active Problems: All Active Problems Leg edema (Acute) Impaired glucose tolerance (Acute) Encounter for diagnostic colonoscopy due to change in bowel habits (Acute) Diverticulosis (Acute) Chronic idiopathic constipation (Acute) Esophageal hernia (Acute) Low back pain (Acute) Right hip pain (Acute) Hip pain (Acute) Right lower quadrant abdominal pain (Acute) Low serum total protein level (Acute) Abnormal serum total protein level (Acute) Physical exam (Acute) Screening for osteoporosis (Acute) Diverticulitis (Acute) Chest pain in adult (Acute) Weight loss (Acute) Left inguinal hernia (Acute) GERD (gastroesophageal reflux disease) (Acute) Hypothyroidism (Acute) Essential hypertension (Acute) Pure hypercholesterolemia (Acute) Past Medical History Medical History Polymyalgia rheumatica Diverticulitis Esophageal hernia Impaired glucose tolerance Back pain Weight loss Left inguinal hernia GERD (gastroesophageal reflux disease) Hypothyroidism Essential hypertension Pure hypercholesterolemia Family History Family History Father COPD (chronic obstructive pulmonary disease) Mother Acute CVA (cerebrovascular accident) Hypertension Alcoholism Brother Stomach cancer Paternal Grandmother Uterine cancer Family/Other FH: mental illness Maternal Grandmother Hypertension Surgical History Surgical History (Updated 08/20/24 @ 06:36 by Jennifer Griffin RN) Hx of tonsillectomy Hx of colonoscopy History of inguinal hernia repair (~1987) History of appendectomy History of hysterectomy Social History Social History Housing: House Alcohol intake: never Patient Tobacco Use Status: Former Tobacco user Tobacco use type: Cigarette e-Cigarette/Vaping Use: Never Used Second Hand Smoke Exposure: No Use of substances other than those prescribed or required for medical reasons: No Are you DNR?: No Advance Directives: No Advance Directives Information Provided: Yes Recently lost weight without trying: No service: No Current occupational status: retired Cognitive needs: No Hearing needs: No Vision needs: Yes Meds Allergies Allergy/AdvReac Type Severity Reaction Status Date / Time dicyclomine AdvReac Intermediate diarrhea Verified 08/20/24 06:44 [From A-Spas (dicyclomine)] Home Medications ?Medication ?Instructions ?Recorded ?Confirmed ?Last Taken ?Type acetaminophen 500 mg tablet 500 mg PO Q6H PRN Pain 12/18/23 08/20/24 Unknown History (Tylenol Extra Strength) cholecalciferol (vitamin D3) 25 25 mcg PO DAILY 12/18/23 08/20/24 Unknown History mcg (1,000 unit) capsule cyclosporine 0.05 % eye drops in a 1 drp ophthalmic (eye) BID 12/18/23 08/20/24 Unknown History dropperette (Restasis) prednisone 20 mg tablet 20 mg PO BID 03/23/24 08/20/24 08/20/24 05:30 History Exam Height,Weight and Vital Signs: Height 4 ft 11 in Weight 53.07 kg Assessment and Plan Assessment Anesthesia Assessment: Chart Reviewed Documented by User: Arsh Magana MD 08/20/24 07:40 PMFSH Past Medical History Medical History Polymyalgia rheumatica Diverticulitis Esophageal hernia Impaired glucose tolerance Back pain Weight loss Left inguinal hernia GERD (gastroesophageal reflux disease) Hypothyroidism Essential hypertension Pure hypercholesterolemia Family History Family History Father COPD (chronic obstructive pulmonary disease) Mother Acute CVA (cerebrovascular accident) Hypertension Alcoholism Brother Stomach cancer Paternal Grandmother Uterine cancer Family/Other FH: mental illness Maternal Grandmother Hypertension Family history of problems with anesthesia: No Surgical History Surgical History (Updated 08/20/24 @ 06:36 by Jennifer Griffin, RN) Hx of tonsillectomy Hx of colonoscopy History of inguinal hernia repair (~1987) History of appendectomy History of hysterectomy History of Problems with Anesthesia: No Social History Social History Housing: House Alcohol intake: never Patient Tobacco Use Status: Former Tobacco user Tobacco use type: Cigarette e-Cigarette/Vaping Use: Never Used Second Hand Smoke Exposure: No Use of substances other than those prescribed or required for medical reasons: No Are you DNR?: No Advance Directives: No Advance Directives Information Provided: Yes Recently lost weight without trying: No service: No Current occupational status: retired Cognitive needs: No Hearing needs: No Vision needs: Yes Meds Allergies Allergy/AdvReac Type Severity Reaction Status Date / Time dicyclomine AdvReac Intermediate diarrhea Verified 08/20/24 06:44 [From A-Spas (dicyclomine)] Home Medications ?Medication ?Instructions ?Recorded ?Confirmed ?Last Taken ?Type acetaminophen 500 mg tablet 500 mg PO Q6H PRN Pain 12/18/23 08/20/24 Unknown History (Tylenol Extra Strength) cholecalciferol (vitamin D3) 25 25 mcg PO DAILY 12/18/23 08/20/24 Unknown History mcg (1,000 unit) capsule cyclosporine 0.05 % eye drops in a 1 drp ophthalmic (eye) BID 12/18/23 08/20/24 Unknown History dropperette (Restasis) prednisone 20 mg tablet 20 mg PO BID 03/23/24 08/20/24 08/20/24 05:30 History Exam Airway Mallampati Class: II TM Dist: <=3cm Neck ROM: Full Loose/Missing/Broken Teeth: No Heart: ok Lungs: ok Assessment and Plan Assessment Anesthesia Assessment: Anesthesia Plan Discussed Final Anesthetic Review Family History of Problems with Anesthesia: No History of Problems with Anesthesia: No NPO: Yes ASA Class: III Final Preanesthetic Review: No Changes in Pt Med Stat, Meds/Allgs Chart Reviewed, Consent Obtained/Reviewed and Anes Risks/Benef Reviewed Patient Risk: Intermediate Procedure Risk: Intermediate Anesthetic Plan Anesthetic Plan: Agree w/ Assess. and Plan and TIVA Disposition: Standard PACU
--- OUTSIDE RECORDS SUMMARY | 2024-08-20 06:31 | XMS_ITS ---
[facility] Address [address] [place] [address] Care Team Providers Care Hospice Home Care Coordinator Name Role Phone Aimee CHACON, Gretel Primary Care Provider Unavail able Lucia Oconnell Unavailable [phone] Eleazar Marquez Unavailable [phone] REASON FOR VISIT Painful nail(s) aggrevated by shoes and causing difficulty standing/walking. Medications Medication SIG (Take, Route, Frequency, Duration) Notes Start Date End Date Status Omeprazole 40 MG 1 capsule 30 minutes before morning meal Orally Once a day for 30 day(s) Not-Taking Dicyclomine HCl 20 MG 1 tablet Orally Three times a day for 30 day(s) Not-Taking Restasis Active hydroCHLOROthiazide Not-Taking predniSONE Active AmLactin 12 % 1 application to affected area Externally Twice a day to feet for 30 days Active Enalapril Maleate 20 MG 1 tablet Orally Active Atorvastatin Calcium 20 MG 1 tablet Orally Active Levothyroxine Sodium 75 MCG 1 tablet in the morning on an empty stomach Orally Active Social History Alcohol Screen Question Answer Notes Did you have a drink containing alcohol in the p ast year? No Points 0 Interpretation Negative Tobacco use other than smoking: Question Answer Notes Are you an other tobacco user? No Vital Signs Height 4 ft 11 in in 03/24/2024 Weight 117 lbs 03/24/2024 BMI 23.63 kg/m2 03/24/2024 Encounters Encounter Location Date Provider Diagnosis [facility] [place] [address] [address] 03/24/2024 Eleazar Marquez Primary osteoarthritis, right ankle and foot M19.071 ; Primary osteoarthritis, left ankle and foot M19.072 ; Pain in left foot M79.672 ; Pain in right foot M79.671 ; Metatarsalgia, left foot M77.42 ; Metatarsalgia, right foot M77.41 ; Plantar fascial fibromatosis M72.2 ; Tinea unguium B35.1 ; Pain in right toe(s) M79.674 ; Pain in left toe(s) M79.675 and Xerosis cutis L85.3 Assessments Encounter Date Diagnosis (ICD Code) Assessment Notes Treatment Notes Treatment Clinical Notes Section Notes 03/24/2024 Primary osteoarthritis, right ankle and foot (ICD-10 - M19.071) 03/24/2024 Primary osteoarthritis, left ankle and foot (ICD-10 - M19.072) 03/24/2024 Pain in left foot (ICD-10 - M79.672) 03/24/2024 Pain in right foot (ICD-10 - M79.671) 03/24/2024 Metatarsalgia, left foot (ICD-10 - M77.42) 03/24/2024 Metatarsalgia, right foot (ICD-10 - M77.41) 03/24/2024 Plantar fascial fibromatosis (ICD-10 - M72.2) 03/24/2024 Tinea unguium (ICD-10 - B35.1) 03/24/2024 Pain in right toe(s) (ICD-10 - M79.674) 03/24/2024 Pain in left toe(s) (ICD-10 - M79.675) 03/24/2024 Xerosis cutis (ICD-10 - L85.3) Plan Of Treatment Medication Medication Name Sig Start Date Stop Date Notes AmLactin 12 % 1 application to aff ected area Externally Twice a day to feet for 30 days Next Appt Details Follow Up: 6 Months, Reason: Provider Name:Lucia arnold, 09/22/2024 10:00:00 AM, [address] [facility], [address], [place], [address], Procedure Notes * Category Sub-Category Detail Notes Debride Nail 6-10 Nail debridement Nail debridem ent performed extensively to reduce/remove overall nail length and girth, subungual debris, and necrotic tissue, by manual and electrical means with use of a nail nipper and/or dremel, to more viable healthy nail plate or bed tissue 6-10. Silver nitrate used for any petechial bleeding as necessary. Patient chooses, no pharmaceutical tx ([id number]) Progress Notes * Marquita DHILLON FDOB: 2 (83 yo F)Acc No.[id number]:03/24/2024 Progress Note Patient:?Marquita Dhillon Provider:?Eleazar Marquez DPM :1940???Age:83 Y???Sex:Female D ate:03/24/2024 Address:[address] [place] [address], [address] [id number] Pcp:Gretel Yu MD Subjective: * Chief Complaints: * ??? Painful nail(s) aggrevat ed by shoes and causing difficulty standing/walking. * HPI: ???Foot Pain:?Nature:?aching, throbbing.?Location?Forefoot, B/L and ankles and legs.?Duration:?several years.?Course:?improved.?Aggrevated:?any pressure, standing, walking.?Treatments:?rest, medication ( percocet ), nightsplint, innersoles, improved condition.?Painful Nails:?Pt States Last PCP Visit:?Date:?03/23/2024 ???Skin problems:?Nature:?dryness.?Location:?B/L .?Duration:?several weeks.?Course:?improved.? * ROS:?General/Constitutional:?Nausea?denies.?Vomiting?denies.?Hunger Thirst?denies.?Loss appetite?denies.?Chills?denies.?Fatigue?denies.?Fever?denies.?Night Sweats?denies.?Unexplained weight loss?denies.?Unexplained weight gain?denies.?HEENTM:?Dentures?denies.?Dizziness?denies.?Glasses/contacts?admits.?Retinopathy?de nies.?Blurred/double vision?denies.?TMJ?denies.?Discharge/drainage?denies.?Implants?denies.?Sore throat?denies.?Dental implants?denies.?Hard of hearing ?denies.?Difficulty chewing/swallowing/speaking?denies.?Nose bleeds?denies.?Sore mouth?denies.?Respiratory:?On Oxygen?denies.?Pneumonia/pleurisy?denies.?Bronchitis?denies.?Emphysema?denies.?C oughing?denies.?Cough blood?denies.?Shortness of breath?denies.?Wheezing?denies.?Cardiovascular:?Pacemaker?denies.?MVP?denies.?WPW?denies.?CHF?denies.?Heart attack?denies.?Septal defect?denies.?Rapid beat?denies.?Chest pain ?denies.?Atrial Fib.?denies.?Murmur/Palpitations?denies.?Gastrointestinal:?Hemorrhoids?denies.?Stomach/Abdominal pain?denies.?Dark blood stool?denies.?Irritable bowel ?admits.?Constipation?denies.?Diarrhea?denies.?Hematology:?Swelling?denies.?Clots?denies.?Varicose Veins?denies.?Bruising?denies.?Bleeding problem?denies.?Genitourinary:?Blood urine?denies.?Frequent/Painfu/urination/bladder control?denies.?Kidney stones?denies.?Infection (UTI)?denies.?Nephropathy?denies.?sex trans dis (STD)?denies.?Prostate?denies.?Musculoskeletal:?Hammertoes?admits.?Bunions?denies.?Back Pain?denies.?Muscle Cramps/ Resting?denies.?Muscle cramps / walking?denies.?Generalized aches and pains?denies.?Weakness?denies.?Integ.:?Mauricio?denies.?Scars?denies.?Corns/calluses?denies.?Ingrown nails?admits.?Painful nails?denies.?Open Sores?denies.?Rashes?denies.?Neurologic:?Difficulty sleeping?denies.?Brain disorder?denies.?Numbness?denies.?Balance trouble?denies.?Confusion?denies.?Fainting/blackouts?denies.?Tingling?denies.?Tr emors?denies.? * Medical History:? * Surgical History:?hysterecto my 1989appendectomy 194tonsillectomy 1939cataract surgery hernia 1987 * Hospitalization/Major Diagno stic Procedure:?[facility]- Pain in legs and feet. - No clotting 06/17/19 * Family History:?Mother: dece ased, diagnosed with Unspecified cerebral artery occlusion with cerebral infarction.?Father: .?Paternal Grand Mother: diagnosed with Diabetic - NIDDM.?Maternal Grand Mother: diagnosed with Unspecified cerebral artery occlusion with cerebral infarction.?Siblings: diagnosed with Other malignant neoplasm of unspecified site.? * Social History:?Tobacco Use:?Tobacco Use/Smoking?Are you a:: former smoker , Additional Findings: Tobacco Non-User: Current non-smoker.?Tobacco use other than smoking?Are you an other tobacco user??No ???Drugs/Alcohol:?Drugs?Have you used drugs other than those for medical reasons in the past 12 months??No ?Alcohol Screen?Did you have a drink containing alcohol in the past year??No ?Points?0 ?Interpretation?Negative ???Miscellaneous:?Caffeine: yes, frequency: 2 cups per day. ?no Children. ?Exercise: yes, occasional, walking 30 mins per day. ?Marital status: single. 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 * Medications:?TakingAtorvasta tin Calcium 20 MG Tablet 1 tablet Orally Levothyroxine Sodium 75 MCG Tablet 1 tablet in the morning on an empty stomach Orally Enalapril Maleate 20 MG Tablet 1 tablet Orally predniSONE Restasis AmLactin 12 % Lotion 1 application to affected area Externally Twice a day to feetTaking Atorvastatin Calcium 20 MG Tablet 1 tablet Orally Taking Levothyroxine Sodium 75 MCG Tablet 1 tablet in the morning on an empty stomach Orally Taking Enalapril Maleate 20 MG Tablet 1 tablet Orally Taking predniSONE Taking Restasis Taking AmLactin 12 % Lotion 1 application to affected area Externally Twice a day to feetNot- Taking/PRNOmeprazole 40 MG Capsule Delayed Release 1 capsule 30 minutes before morning meal Orally Once a dayDicyclomine HCl 20 MG Tablet 1 tablet Orally Three times a dayhydroCHLOROthiazide Medication List reviewed and reconciled with the patientNot-Taking/PRN Omeprazole 40 MG Capsule Delayed Release 1 capsule 30 minutes before morning meal Orally Once a dayNot-Taking/PRN Dicyclomine HCl 20 MG Tablet 1 tablet Orally Three times a dayNot-Taking/PRN hydroCHLOROthiazide Medication List reviewed and reconciled with the patient * Allergies:?yes[Allergies Paul ified] Objective: * Vitals:?Ht: 4 ft 11 in, Wt:1 17, BMI: 23.63, Shoe size:7, Wt-k.07 kg. * Examination: ???General Examination: ?GENERAL APPEARANCE:?pleasant, alert, well nourished, well developed, well hydrated, with good attention to hygene/body habitus, and in no acute distress.?ORIENTED:?person,place, and time.?Neurological: ?SENSORY:?Neurological exam demonstrates pop of mt's neo and neo ankles.?TINEL'S COMPRESSION:?Negative tarsal tunnel, samantha pedis, and medial calcaneal nerves B/L.?BABINSKI REFLEX:?absent.?Neuroma Pain: ?PALPATION:?No interspace pain noted on palpation.?Vascular: ?DP PULSES:?2/4, B/L.?PT PULSES:? 0/4, B/L.?CAPILLARY FILL TIME:?3 secs. per digit, B/L.?SKIN TEMPERTURE GRADIENT OF THE LOWER EXTERMITIES:?warm to cool, proximal to distal, B/L.?HAIR GROWTH/TEXTURE/ELASTICITY/TURGOR:?normal, B/L.?PIGMENTATION:?normal, B/L.?EDEMA:? 1/4, B/L, Ankle(s), Leg(s).?TELANGECTASIA:?absent.?VARICOSITIES:?absent.?Dermatologic: ?SKIN FINDINGS:?Skin exam reveals normal color, texture, elasticity, and turgor. There are no masses, nor excrescences. The interspaces are clear, B/L.?Orthopedic: ?MUSCLE STRENGTH:?5/5 all groups in a symmetrical fashion , B/L.?GAIT ABNORMALITY:?pronated, abducted, B/L.?FOOT MORPHOLOGY:? Pes Planus structure, B/L.?Nails: ?NAILS are:?elongated,overgrown,dystrophic,greater than 3mm thick,discolored and friable with crumbly malodorous subungual debris, with pain on palpation, 1-5 B/L.? Assessment: * Assessment: 1.?Primary osteoarthritis, r ight ankle and foot - M19.071 (Primary)?2.?Primary osteoarthritis, left ankle and foot - M19.072?3.?Pain in left foot - M79.672?4.?Pain in right foot - M79.671?5.?Metatarsalgia, left foot - M77.42?6.?Metatarsalgia, right foot - M77.41?7.?Plantar fascial fibromatosis - M72.2?8.?Tinea unguium - B35.1?9.?Pain in right toe(s) - M79.674?10.?Pain in left toe(s) - M79.675?11.?Xerosis cutis - L85.3? Plan: * Treatment: * Procedures:?Debride Nail 6-10:?Nail debridement?Nail debridement performed extensively to reduce/remove overall nail length and girth, subungual debris, and necrotic tissue, by manual and electrical means with use of a nail nipper and/or dremel, to more viable healthy nail plate or bed tissue 6-10. Silver nitrate used for any petechial bleeding as necessary. Patient chooses, no pharmaceutical tx ([id number]).? * Procedure Codes:?11949 DEBRI DE NAIL, 6 OR MORE, Modifiers: XS * Follow Up:?6 Months * Images: * Sign off status: Completed true * Provider:?Eleazar Marquez DPM Date:? 024 Generated for Yoana weiss/Eileen/Miahitting on:?08/20/2024 06:31 AM EST History and Physical Notes * HPI (History of Present Illness) Category Sub-Category Detail Notes Category Not es Painful Nails Pt States Last PCP Visit: Date:: 03/23/2024 Skin problems Nature: dryness Location: B/L Duration: several weeks Course: improved Foot Pain Aggrevated: any pressure, standing, walk ing Course: improved Duration: several years Nature: aching, throbbing Treatments: rest, medication ( p ercocet ), nightsplint, innersoles, improved condition Location Forefoot, B/L and an kles and legs Examination Category Sub-Category Detail Notes Category Not es Neuroma Pain PALPATION: No interspace pain noted on palpation Neurological SENSORY: Neurological exa m demonstrates pop of mt's neo and neo ankles BABINSKI REFLEX: absent TINEL'S COMPRESSION: Negative tarsal eli sondra, samantha pedis, and medial calcaneal nerves B/L Dermatologic SKIN FINDINGS: Skin exam reveal s normal color, texture, elasticity, and turgor. There are no masses, nor excrescences. The interspaces are clear, B/L Orthopedic GAIT ABNORMALITY: pronated, abducted, B/L FOOT MORPHOLOGY: Pes Planus structure , B/L MUSCLE STRENGTH: 5/5 all groups in a symmetrical fashion , B/L General Examination GENERAL APPEARANCE: pleasant , alert, well nourished, well developed, well hydrated, with good attention to hygene/body habitus, and in no acute distress ORIENTED: person,place, and ti me Vascular DP PULSES(B): 2/4, B/L PT PULSES(B): 0/4, B/L CAPILLARY FILL TIME: 3 secs. per digit, B/L TEMPERTURE GRADIENT(C): warm to cool, pr oximal to distal, B/L TROPHIC CONDITION-TEXTURE/ELASTICITY/TURGOR/HAIR GROWTH(B): normal, B/L EDEMA(C): 1/4, B/L, Ankle(s), Leg(s) TELANGECTASIA: absent VARICOSITIES: absent PIGMENTATION: normal, B/L Nails NAILS are: elongated,overgr own,dystrophic,greater than 3mm thick,discolored and friable with crumbly malodorous subungual debris, with pain on palpation, 1-5 B/L
--- OUTSIDE RECORDS SUMMARY | 2024-08-20 06:31 | XMS_ITS ---
Author Organization [facility] Address [address] [place] [address] Care Team Providers Care Netsuite Consultant Name Role Phone Gretel Yu MD Primary Care Provider Unavail able Lucia Oconnell Unavailable [phone] Eleazar Marquez Unavailable [phone] REASON FOR VISIT Painful nail(s) aggrevated by shoes and causing difficulty standing/walking. Medications Medication SIG (Take, Route, Frequency, Duration) Notes Start Date End Date Status AmLactin 12 % 1 application to aff ected area Externally Twice a day to feet for 30 days Active Encounters Encounter Location Date Provider Diagnosis [facility] [address] [address] 08/20/2023 Eleazar Marquez Primary osteoarthritis, right ankle and [...] Treatment Notes Treatment Clinical Notes Section Notes 08/20/2023 Primary osteoarthritis, right ankle and foot (ICD-10 - M19.071) 08/20/2023 Primary osteoarthritis, left ankle and foot (ICD-10 - M19.072) 08/20/2023 Pain in left foot (ICD-10 - M79.672) 08/20/2023 Pain in right foot (ICD-10 - M79.671) 08/20/2023 Metatarsalgia, left foot (ICD-10 - M77.42) 08/20/2023 Metatarsalgia, right foot (ICD-10 - M77.41) 08/20/2023 Plantar fascial fibromatosis (ICD-10 - M72.2) 08/20/2023 Tinea unguium (ICD-10 - B35.1) 08/20/2023 Pain in right toe(s) (ICD-10 - M79.674) 08/20/2023 Pain in left toe(s) (ICD-10 - M79.675) 08/20/2023 Xerosis cutis (ICD-10 - L85.3) Plan Of Treatment Medication Medication Name Sig Start Date Stop Date Notes AmLactin 12 % 1 application to aff ected area Externally Twice a day to feet for 30 days Next Appt Details Follow Up: 4 Months, Reason: Provider Name:Lucia arnold, 09/22/2024 10:00:00 AM, [address] [facility], [place] [address], [place], [address], Procedure Notes * Category Sub-Category Detail Notes [...] as necessary. Patient chooses, no pharmaceutical tx (27910) Progress Notes * Marquita DHILLON FDOB: 2 (83 yo F)Acc No.[id number]:08/20/2023 Progress Note Patient:?Marquita DHILLON Provider:?Eleazar Marquez DPM :1940???Age:82 Y???Sex:Female D ate:08/20/2023 Address:[address] [place] [address] [address], [id number] Pcp:Gretel Yu MD Subjective: * Chief Complaints: * ???1. Painful nail(s) aggrev ated by shoes and causing difficulty standing/walking.. * HPI: ???Foot Pain:?Nature:?aching, throbbing.?Location?Forefoot, B/L and ankles and legs.?Duration:?several years.?Course:?improved.?Aggrevated:?any pressure, standing, walking.?Treatments:?rest, medication ( percocet ), nightsplint, innersoles, improved condition.?Painful Nails:?Pt States Last PCP Visit:?Date:?03/11/2023 ???Skin problems:?Nature:?dryness.?Location:?B/L .?Duration:?several weeks.?Course:?improved.? * ROS:?General/Constitutional:?Nausea?denies.?Vomiting?denies.?Hunger Thirst?denies.?Loss [...] sleeping?denies.?Brain disorder?denies.?Numbness?denies.?Balance trouble?denies.?Confusion?denies.?Fainting/blackouts?denies.?Tingling?denies.?Tr emors?denies.? * Medical History:? Objective: * Vitals:? * Examination: ???General Examination: ?GENERAL APPEARANCE:?pleasant, alert, well nourished, well developed, well hydrated, with good attention to hygene/body habitus, and in no acute distress.?ORIENTED:?person,place, and time.?Neurological: ?SENSORY:?Neurological exam demonstrates pop of mt's neo and neo ankles.?TINEL'S COMPRESSION:?Negative tarsal tunnel, samantah pedis, and medial calcaneal nerves B/L.?BABINSKI REFLEX:?absent.?Neuroma Pain: ?PALPATION:?No interspace pain noted on palpation.?Vascular: ?DP PULSES(B):?2/4, B/L.?PT PULSES(B):? 0/4, B/L.?CAPILLARY FILL TIME:?3 secs. per digit, B/L.?TROPHIC CONDITION-TEXTURE/ELASTICITY/TURGOR/HAIR GROWTH(B):?normal, B/L.?TEMPERTURE GRADIENT(C):?warm to cool, proximal to distal, B/L.?PIGMENTATION:?normal, B/L.?EDEMA(C):? 1/4, B/L, Ankle(s), Leg(s).?TELANGECTASIA:?absent.?VARICOSITIES:?absent.?Dermatologic: ?SKIN FINDINGS:?Skin exam [...] r ight ankle and foot - M19.071 (Primary)???2.?Primary osteoarthritis, left ankle and foot - M19.072???3.?Pain in left foot - M79.672???4.?Pain in right foot - M79.671???5.?Metatarsalgia, left foot - M77.42???6.?Metatarsalgia, right foot - M77.41???7.?Plantar fascial fibromatosis - M72.2???8.?Tinea unguium - B35.1???9.?Pain in right toe(s) - M79.674???10.?Pain in left toe(s) - M79.675???11.?Xerosis cutis - L85.3??? Plan: * Treatment: * Procedures:?Debride Nail 6-10:?Nail debridement?Nail debridement performed extensively to reduce/remove overall nail length and girth, subungual debris, and necrotic tissue, by manual and electrical means with use of a nail nipper and/or dremel, to more viable healthy nail plate or bed tissue 6-10. Silver nitrate used for any petechial bleeding as necessary. Patient chooses, no pharmaceutical tx (47983).? * Procedure Codes:?35712 DEBRI DE NAIL, 6 OR MORE, Modifiers: XS * Follow Up:?4 Months * Images: * The named appointment provid er may or may not be the originator of this progress note, and it is not deemed complete until electronically signed by the appointment provider. Sign off status: Pending * Provider:Pete Marquez DPM Date:? 023 Generated for Yoana weiss/Eileen/eTransmitting on:?08/20/2024 06:31 AM EST History and Physical Notes * HPI (History of Present Illness) Category Sub-Category Detail Notes Category Not es Painful Nails Pt States Last PCP Visit: Date:: 03/11/2023 Skin problems Nature: dryness Location: B/L Duration: [...]
--- OUTSIDE RECORDS SUMMARY | 2024-08-20 06:31 | XMS_ITS | Patient Health Record ---
Author [facility] Address [address] [place] [address] Care Team Providers Care Ophthalmic Tech Name Role Phone Aimee CHACON, Gretel Primary Care Provider Unavail able Lucia Oconnell Unavailable [phone] Eleazar Marquez Unavailable [phone] Allergies No Known Allergies Reason For Referral No Information Medications Medication SIG (Take, Route, Frequency, Duration) Notes Start Date End Date Status Omeprazole 40 MG 1 capsule 30 minutes before morning meal Orally Once a day for 30 day(s) Not-Taking Dicyclomine HCl 20 MG 1 tablet Orally Three times a day for 30 day(s) Not-Taking Restasis Active AmLactin 12 % 1 application to affected area Externally Twice a day to feet for 30 days Active hydroCHLOROthiazide Not-Taking Enalapril Maleate 20 MG 1 tablet Orally Active predniSONE Active Atorvastatin Calcium 20 MG 1 tablet Orally Active Levothyroxine Sodium 75 MCG 1 tablet in the morning on an empty stomach Orally Active Social History Alcohol Screen Question Answer Notes Did you have a drink containing alcohol in the p ast year? No Points 0 Interpretation Negative Tobacco use other than smoking: Question Answer Notes Are you an other tobacco user? No Problems Problem Type SNOMED Code ICD Code Onset Dates Problem Status W/U Status Risk Notes Problem Acquired hallux valgus (30120041) Hallux valgus (acquired), left foot (M20.12) Active confirmed Problem Localized, primary osteoarthritis of the ankle and/or foot (512515744) Primary osteoarthrit is, right ankle and foot (M19.071) Active confirmed Problem Localized, primary osteoarthritis of the ankle and/or foot (350419779) Primary osteoarthrit is, left ankle and foot (M19.072) Active confirmed Problem Acquired hammer toe of left foot (7922985117423888) Other hammer toe(s) (acquired), left foot (M20.42) Active confirmed Vital Signs Height 4 ft 11 in in 03/24/2024 Weight 117 lbs 03/24/2024 BMI 23.63 kg/m2 03/24/2024 Encounters Encounter Location Date Provider Diagnosis [facility] [address] [address] 03/24/2024 Eleazar Marquez Primary osteoarthritis, right ankle [...] cutis (ICD-10 - L85.3) Plan Of Treatment Pending Test Test Name Order Date X ray : Ankle, left 2V 06/17/2019 X ray : Ankle, right 2V 06/17/2019 X ray : Foot, left 2V 07/18/2016 X ray : Foot, left 3V 06/17/2019 X ray : Foot, right 3V 06/17/2019 02060-Rbhzooyd Plate 08/17/2015 85324-YHE 07/04/2016 12951- Debride <25 sq cm 07/18/2016 99740- Debride <25 sq cm 08/30/2015 32363- Debride <25 sq cm 08/08/2016 Next Appt Details Provider Name:Lucia Voss clayton, 09/22/2024 10:00:00 AM, [address] [facility], [address], [place], [address], Insurance Providers Payer Name Payer Address Payer Phone Subscriber Number Group Number Insured Name Patient Relationship to Insured Coverage Start Date Coverage End Date Medicare [facility] [address] [place] [address] [id number] Marquita Wild Self - patient is the insured Medical (General) History Medical History History ICD Code Hyperlipidemia Hypertension Chicken pox Measles Mumps Cataracts Thyroid disorder CAD (Cholesterol) Diverticulosis Hiatal hernia Surgical History Surgery Date(Month/Year) hysterectomy 1988 appendectomy 1948 tonsillectomy 1939 cataract surgery hernia 1988 Hospitalization History Reason Date(Month/Year) [facility] [place] Pain in legs and feet. - No clottin g 06/17/19
--- OUTSIDE RECORDS SUMMARY | 2024-08-20 06:31 | XMS_ITS ---
Author Organization [facility] Address [address] [place] [address] Care Team Providers Care Tanbark Laborer Name Role Phone Gretel Yu MD Primary Care Provider Unavail able Lucia Oconnell Unavailable [phone] Eleazar Marquez Unavailable [phone] Mcdonnell Encounters Encounter Location Date Provider Diagnosis [facility] [address] [place] [address] 03/27/2024 Eleazar Marquez Plan Of Treatment Next Appt Details Provider Name:Lucia arnold, 09/22/2024 10:00:00 AM, [address] [facility], [place] [address], [place], [address], Progress Notes * Marquita DHILLON FDOB: 2 (83 yo F)Acc No.[id number]:03/27/2024 Progress Note Patient:?Marquita DHILLON Provider:?Eleazar Marquez DPM :1940???Age:83 Y???Sex:Female D ate:03/27/2024 Address:[address] [place] [address], [address], [place], [id number] Pcp:Gretel Yu MD Subjective: * Chief Complaints: * ???1. Dr. Mcdonnell. * Medical History:? Objective: * Vitals:? Assessment: Plan: * Treatment: * Images: * The named appointment provid er may or may not be the originator of this progress note, and it is not deemed complete until electronically signed by the appointment provider. Sign off status: Pending * Provider:Pete Marquez DPM Date:? 024 Generated for Yoana weiss/Eileen/Jackelyn on:?08/20/2024 06:31 AM EST
[2024-08-20 06:36] VITALS: BMI 23.8
[2024-08-20 06:55] VITALS: BP 146/75; PULSE 91; RESP 15; TEMP 36.8; O2SAT 95
[2024-08-20] MEDS: Lactated Ringers 1,000 ML 100 ML IVCONT (06:57)
--- NOTE | 2024-08-20 08:00 | MHC.SHP ---
Pre-Procedural Eval Section A - 24 Hr Update-Section A only Date of Service: 08/20/24 Section B - Complete if H&P > 30 days Chief Complaint: Diaphragmatic hernia,constipation,Diverticulosis Details of Present Illness: Weight loss Screening for osteoporosis Left inguinal hernia GERD (gastroesophageal reflux disease) Hypothyroidism Essential hypertension Pure hypercholesterolemia Surgical History Hx of colonoscopy History of inguinal hernia repair (~1987) History of appendectomy History of hysterectomy Allergies: Allergies Allergy/AdvReac Type Severity Reaction Status Date / Time dicyclomine AdvReac Intermediate diarrhea Verified 08/20/24 06:44 [From A-Spas (dicyclomine)] Review of Systems Review of Systems Comment: Ten point ROS negative Exam Exam Comment: Gen appear: No acute distress HEENT: no icterus Chest: No overt resp distress Abd: soft, nontender, nondistended Psych: Stable affect, answering questions appropriately Neuro: A/Ox3 noted to move all extremities spontaneously Ext: no peripheral edema Plan Diagnosis/Plan: Unchanged I have reviewed the history and physical and performed a pertinent physical examination on my patient. No changes have occurred unless specified. Time Spent With Patient Time: Total time managing care of this patient today ____ minutes.
--- NOTE | 2024-08-20 08:29 | P.OPN-COLO_ITS ---
Colonoscopy Operative Note Operative Note Date of Service: 08/20/24 Narrative: Procedure: Upper endoscopy and colonoscopy Indication: Paraesophageal hernia, hx of diverticulitis, change in bowel habits Endoscopist: Marlyn Chance MD Anesthesia Provider: Dr Arsh Magana Anesthesia type: MAC Instrument: GIF-H190 and PCF-H190L EGD Procedure:?? The procedure, indications, preparation and potential complications were reviewed with the patient, who indicated understanding and gave written informed consent to proceed. The endoscope was introduced through the mouth, and advanced to the 2nd part of the duodenum. The mucosa was carefully examined on slow withdrawal of the endoscope. The patient tolerated the procedure well. There were no immediate complications.? EGD Findings:? * Esophagus:? Normal esophageal mucosa was noted. The Z-line was at 32 cm displaced by an enormous paraesophageal hernia with the diaphragmatic hiatus estimated to be around 41 cm. Cold forceps biopsies were taken from lower esophagus. * Stomach:? Scant heme and erythema within the herniated fundus. Retroflexion was performed in the cardia that shows Hill grade IV hiatal hernia. Random cold forceps biopsies were taken from the stomach. * Duodenum:? MIld erythema and edema noted in duodenal sweep and second portion of the duodenum. Cold forceps biopsies were taken from the duodenal bulb and 2nd portion of the duodenum to rule out celiac sprue. Colonoscopy Procedure:? The patient was then turned for the colonoscopy. A digital rectal exam was performed which was abnormal for external hemorrhoids.? A distal attachment cap was affixed to the tip of the scope and the colonoscope was then inserted through the anus and advanced through the colon and advanced to the cecum at 75 cm and terminal ileum.? Appendiceal orifice and ileocecal valve were identified. Mucosa was carefully examined under high definition white light as the instrument was slowly withdrawn in a retrograde panoramic fashion. Retroflexion was performed in rectum. The procedure was not difficult. The quality of the prep was BBPS: 2+2+3 = adequate Withdrawal time 7 minutes Limitations: No limitations Findings: Mucosa: Normal colon and terminal ileum mucosa. Cold forceps biopsies were taken of the right and left side of the colon to rule out microscopic colitis. Protruding lesions: * Large internal hemorrhoids without stigmata of recent bleeding. Excavated lesions: * Moderate to severe diverticulosis of whole colon, L>R. Impression: 1. Normal esophagus (biopsy) 2. Large paraesophageal hernia 3. Joselito erosions 4. Normal stomach (biopsy) 5. Duodenitis (biopsy) 6. Normal colon and terminal ileum mucosa (biopsy) 7. Internal hemorrhoids 8. Diverticulosis Recommendations:?? * Follow-up path results * Cont PPI * Avoid NSAIDs * Will discuss foregut surgery referral with the pt in the office * Repeat colonoscopy for CRC screening purpose not recommended due to age.
[2024-08-20 08:35] VITALS: BP 115/56; PULSE 83; RESP 18; TEMP 36.4; O2SAT 96
[2024-08-20 08:50] VITALS: BP 130/66; PULSE 77; RESP 16; TEMP 36.7; O2SAT 96
== END 2024-08-20 09:03 | disposition home or self-care (01) ==
PROVIDERS: PCP Internal Medicine; Visit Provider Internal Medicine
PROC: (CPT 45380; principal; 2024-08-20 07:40)
DX: R19.4 Change in bowel habit (principal); K57.30 Diverticulosis of large intestine without perforation or abscess without bleeding; Z87.19 Personal history of other diseases of the digestive system; K64.4 Residual hemorrhoidal skin tags; K59.04 Chronic idiopathic constipation; R63.4 Abnormal weight loss; Z68.23 Body mass index [BMI] 23.0-23.9, adult; K44.9 Diaphragmatic hernia without obstruction or gangrene; K29.80 Duodenitis without bleeding; K20.80 Other esophagitis without bleeding; K25.9 Gastric ulcer, unspecified as acute or chronic, without hemorrhage or perforation; K40.90 Unilateral inguinal hernia, without obstruction or gangrene, not specified as recurrent; I10 Essential (primary) hypertension; E78.00 Pure hypercholesterolemia, unspecified; E03.9 Hypothyroidism, unspecified; R73.02 Impaired glucose tolerance (oral); M35.3 Polymyalgia rheumatica; Z79.52 Long term (current) use of systemic steroids; Z79.899 Other long term (current) drug therapy; Z88.8 Allergy status to other drugs, medicaments and biological substances; Z98.890 Other specified postprocedural states; Z87.891 Personal history of nicotine dependence
CPT/HCPCS: 45380; 43239; 88305; 88313; 88342; J2003; J2704; J3010

== ENCOUNTER → 2024-08-20 06:29 | Outpatient (BNV) | payer MEDICARE, MEDICAID, SELFPAY | PROVIDERS: PCP Internal Medicine; Visit Provider Internal Medicine | DX: K44.9 Diaphragmatic hernia without obstruction or gangrene (principal); K25.4 Chronic or unspecified gastric ulcer with hemorrhage; K29.80 Duodenitis without bleeding; R19.4 Change in bowel habit; K64.8 Other hemorrhoids; K57.90 Diverticulosis of intestine, part unspecified, without perforation or abscess without bleeding | CPT/HCPCS: 43239; 45380 ==

== ENCOUNTER → 2024-09-21 10:03 | Outpatient (BNVA) | payer MEDICARE, MEDICAID, SELFPAY | PROVIDERS: PCP Internal Medicine; Visit Provider Internal Medicine | DX: K59.04 Chronic idiopathic constipation (principal); K57.90 Diverticulosis of intestine, part unspecified, without perforation or abscess without bleeding; K44.9 Diaphragmatic hernia without obstruction or gangrene; R63.4 Abnormal weight loss | CPT/HCPCS: 99212 ==

== ENCOUNTER 2024-09-21 10:05 | Outpatient (AMB) | payer MEDICARE, MEDICAID, SELFPAY ==
--- NOTE | 2024-09-21 10:14 | A.OFFVIS_ITS ---
Vital Signs 09/21/24 10:17 09/21/24 10:18 Height 4 ft 11 in Weight 121 lb 4.068 oz 110 lb 3.698 oz BMI 24.5 BP 146/69 H Blood Pressure Location Lt brachial Position Sitting Pulse 72 Intake Visit Reasons: f/u double Intake Note: Marquita is a follow up endoscopy/colonoscopy CC: No concerns Allergies dicyclomine [From A-Spas (dicyclomine)] Adverse Reaction (Intermediate, Verified 08/20/24 06:44) diarrhea HPI Comments Details: This is an 83 y.o F with PMH of who is here for management of diverticulosis. Pt reports a longstanding history of divericulosis going back many decades. Has had a few flares since however in just last year alone she reports having at least 3-4 flares. With this has severe RLQ cramping and pain with frequent BMs. Sometimes has blood on wiping which she thinks is from hemorrhoids. Most recent flare was in Oct and reports started taking Abx and had a Ct scan 2 weeks after which did not show any diverticulitis. Outside of these episodes, BMs are regular does not think they are thin, also sometimes has to go in nighttime, which is new for her. Also reports unintentional weight loss of around 15 lbs in the past one year. CT abdomen pelvis ordered by PCP for question diverticulitis also shows large paraesophageal hernia, which appears to be unchanged from 2020. Patient does not report any issues with swallowing, regurgitation, nausea. EGD/colo 08/20/24: 1. Normal esophagus (biopsy) 2. Large paraesophageal hernia 3. Joselito erosions 4. Normal stomach (biopsy) 5. Duodenitis (biopsy) 6. Normal colon and terminal ileum mucosa (biopsy) 7. Internal hemorrhoids 8. Diverticulosis Path: A. Duodenum, biopsy: Duodenal mucosa within normal limits. B. Stomach, biopsy: Oxyntic mucosa with mild chronic inactive inflammation; no Helicobacter organisms seen. C. Esophagus, lower, biopsy: - Scant small fragment of gastric epithelium within normal limits; no intestinal metaplasia identified. - Relatively abundant squamous epithelium within normal limits. D. Colon, right, biopsy: Colonic mucosa within normal limits. E. Colon, left, biopsy: Colonic mucosa within normal limits. 09/21/24: Seen after EGD/colo last month. Reports no acute issues including abd pain, diarrhea, bloating. To note- this does correlate with starting prednisone for joint pains. EGD/colo findings discussed. Pt reports no dysphagia, regurgitation, nausea or reflux symptoms. [facility] Medical History Polymyalgia rheumatica Diverticulitis Esophageal hernia Impaired glucose tolerance Back pain Weight loss Left inguinal hernia GERD (gastroesophageal reflux disease) Hypothyroidism Essential hypertension Pure hypercholesterolemia Surgical History History of esophagogastroduodenoscopy (EGD) Hx of tonsillectomy Hx of colonoscopy History of inguinal hernia repair (~1987) History of appendectomy History of hysterectomy Family History Father COPD (chronic obstructive pulmonary disease) Mother Acute CVA (cerebrovascular accident) Hypertension Alcoholism Brother Stomach cancer Paternal Grandmother Uterine cancer Family/Other FH: mental illness Maternal Grandmother Hypertension Social History Housing: House Alcohol intake: never Patient Tobacco Use Status: Former Tobacco user Tobacco use type: Cigarette e-Cigarette/Vaping Use: Never Used Second Hand Smoke Exposure: No service: No Current occupational status: retired Cognitive needs: No Hearing needs: No Vision needs: Yes Review of Systems Const All systems reviewed & are unremarkable except as noted in HPI and below Physical Exam Vital Signs: Last Vital Signs Pulse 72 09/21/24 10:17 BP 146/69 H 09/21/24 10:17 BMI result Body Mass Index 24.5 No apparent distress Nonicteric Abdomen soft, nondistended Alert and oriented x3, normal gait Assessment & Plan Assessment & Plan (1) Chronic idiopathic constipation: Code(s): K59.04 - Chronic idiopathic constipation Category: Medical (2) Diverticulosis: Code(s): K57.90 - Diverticulosis of intestine, part unspecified, without perforation or abscess without bleeding Category: Medical (3) Esophageal hernia: Code(s): K44.9 - Diaphragmatic hernia without obstruction or gangrene Category: Medical (4) Weight loss: Code(s): R63.4 - Abnormal weight loss Category: Medical Plan - Abd sx and change in bowel habits resolved. ?? relation to starting prednisone for joint pains. Advised pt to call us if this recurs julio after completing steroid taper. - Has large paraesophageal hernia however pt completely asymptomatic and not interested in surgical referral at this time. This is reasonable julio given her age, and no red flags. Encouraged to call us or PCP if she changes her mind and would like to proceed with a consultation. Keep upright for 40-60 mins post meals Cont pepcid 10 daily (PPI deferred due to known osteopenia) - CRC screening - recall colo not recommended given her age. Pt to call us for follow up PRN as above. Medications: New famotidine (Pepcid AC) after completing pepcid 20 for 8 weeks 10 mg PO BEDTIME 90 days 90 tabs 0RF Coding Level of Care Code Est Pt Level 4 (76645) Diagnoses Chronic idiopathic constipation K59.04 Diverticulosis K57.90 Esophageal hernia K44.9 Weight loss R63.4
[2024-09-21 10:17] VITALS: BP 146/69; PULSE 72; BMI 24.5
--- OUTSIDE RECORDS SUMMARY | 2024-09-21 11:21 | XMS_ITS ---
Author Organization [facility] Address [address] [place] [address] Care Team Providers Care Automobile Body Customizer Name Role Phone Gretel Yu MD Primary Care Provider Unavail able Lucia Oconnell Unavailable [phone] Eleazar Marquez Unavailable [phone] REASON FOR VISIT Painful nail(s) aggrevated by shoes and causing difficulty standing/walking. Medications Medication SIG (Take, Route, Frequency, Duration) Notes Start Date End Date Status AmLactin 12 % 1 application to aff ected area Externally Twice a day to feet for 30 days Active Encounters Encounter Location Date Provider Diagnosis [facility] [address] [address] 08/20/2023 Eleazar Marquez Primary osteoarthritis, right ankle [...] Provider Name:Lucia arnold, 09/22/2024 10:00:00 AM, [address] [facility], [place] [address], [place], [address], Procedure Notes * Category Sub-Category Detail Notes [...] as necessary. Patient chooses, no pharmaceutical tx (63445) Progress Notes * Marquita DHILLON FDOB: 2 (83 yo F)Acc No.[id number]:08/20/2023 Progress Note Patient:?Marquita DHILLON Provider:?Eleazar Marquez DPM :1940???Age:82 Y???Sex:Female D ate:08/20/2023 Address:[address] [place] [address] [address], [address], [id number] Pcp:Gretel Yu MD Subjective: * Chief Complaints: [...] ?PALPATION:?No interspace pain noted on palpation.?Vascular: ?DP PULSES (B):?2/4, B/L.?PT PULSES (B):? 0/4, B/L.?CAPILLARY FILL TIME:?3 secs. per digit, B/L.?TROPHIC CONDITION-TEXTURE/ELASTICITY/TURGOR/HAIR GROWTH (B):?normal, B/L.?TEMPERTURE GRADIENT (C):?warm to cool, proximal to distal, B/L.?PIGMENTATION:?normal, B/L.?EDEMA (C):? 1/4, B/L, Ankle(s), Leg(s).?TELANGECTASIA:?absent.?VARICOSITIES:?absent.?Dermatologic: ?SKIN FINDINGS:?Skin exam [...] as necessary. Patient chooses, no pharmaceutical tx (59575).? * Procedure Codes:?14923 DEBRI DE NAIL, 6 OR MORE, Modifiers: XS * Follow Up:?4 Months * Images: * The named appointment provid er may or may not be the originator of this progress note, and it is not deemed complete until electronically signed by the appointment provider. Sign off status: Pending * Provider:Pete Marquez DPM Date:? 023 Generated for Yoana weiss/Eileen/eTransmitting on:?09/21/2024 11:21 AM EST History and Physical Notes * [...] ORIENTED: person,place, and ti me Vascular DP PULSES (B): 2/4, B/L PT PULSES (B): 0/4, B/L CAPILLARY FILL TIME: 3 secs. per digit, B/L TEMPERTURE GRADIENT (C): warm to cool, p roximal to distal, B/L TROPHIC CONDITION-TEXTURE/ELASTICITY/TURGOR/HAIR GROWTH (B): normal, B/L EDEMA (C): 1/4, B/L, Ankle(s), Leg(s) TELANGECTASIA: absent VARICOSITIES: absent PIGMENTATION: normal, B/L Nails NAILS are: elongated,overgr own,dystrophic,greater than 3mm thick,discolored and friable with crumbly malodorous subungual debris, with pain on palpation, 1-5 B/L
--- OUTSIDE RECORDS SUMMARY | 2024-09-21 11:21 | XMS_ITS ---
[facility] Organization [facility] Address [address] [place] [address] Care Team Providers Care Transcriber Name Role Phone Aimee CHACON, Gretel Primary Care Provider Unavail able Lucia Oconnell Unavailable [phone] Eleazar Marquez Unavailable [phone] REASON FOR VISIT Painful nail(s) aggrevated by [...] 03/24/2024 Encounters Encounter Location Date Provider Diagnosis [facility] [place] [address] [address] 03/24/2024 Eleazar Marquez Primary osteoarthritis, right ankle [...] 10:00:00 AM, [address] [facility], [address], [place], [address], Procedure Notes * Category Sub-Category Detail Notes [...] as necessary. Patient chooses, no pharmaceutical tx (52424) Progress Notes * Marquita DHILLON FDOB: 2 (83 yo F)Acc No.[id number]:03/24/2024 Progress Note Patient:?Marquita Dhillon Provider:?Eleazar Marquez DPM :1940???Age:83 Y???Sex:Female D ate:03/24/2024 Address:[address] [place] [address], [address] [id number] Pcp:Gretel Yu MD Subjective: * Chief Complaints: [...] as necessary. Patient chooses, no pharmaceutical tx ([id number]).? * Procedure Codes:?29175 DEBRI DE NAIL, 6 OR MORE, Modifiers: XS * Follow Up:?6 Months * Images: * Sign off status: Completed true * Provider:?Eleazar Marquez DPM Date:? 024 Generated for Yoana weiss/Eileen/Miahitting on:?09/21/2024 11:21 AM EST History and Physical [...]
--- OUTSIDE RECORDS SUMMARY | 2024-09-21 11:22 | XMS_ITS | Patient Health Record ---
[facility] Address [address] [place] [address] Care Team Providers Care Steel Turner Name Role Phone Aimee CHACON, Gretel Primary Care Provider Unavail able Lucia Oconnell Unavailable [phone] Eleazar Marquez Unavailable [phone] Allergies No Known Allergies Reason For Referral [...] Status Risk Notes Problem Acquired hallux valgus (98916824) Hallux valgus (acquired), left foot (M20.12) Active confirmed Problem Localized, primary osteoarthritis of the ankle and/or foot (637104626) Primary osteoarthrit is, right ankle and foot (M19.071) Active confirmed Problem Localized, primary osteoarthritis of the ankle and/or foot (379505351) Primary osteoarthrit is, left ankle and foot (M19.072) Active confirmed Problem Acquired hammer toe of left foot (8140828917668919) Other hammer toe(s) (acquired), left foot (M20.42) Active confirmed Vital Signs Height 4 ft 11 in in 03/24/2024 Weight 117 lbs 03/24/2024 BMI 23.63 kg/m2 03/24/2024 Encounters Encounter Location Date Provider Diagnosis [facility] [place] [address] [address] 03/24/2024 Eleazar Marquez Primary osteoarthritis, right ankle [...] X ray : Foot, right 3V 06/17/2019 29867-[id number] Plate 08/17/2015 76052-ZHG 07/04/2016 48802- Debride <25 sq cm 07/18/2016 97460- Debride <25 sq cm 08/30/2015 14276- Debride <25 sq cm 08/08/2016 Next Appt Details Provider Name:Lucia Voss clayton, 09/22/2024 10:00:00 AM, [address] [facility], [address], [place], [address], Insurance Providers Payer Name Payer Address Payer Phone Subscriber Number Group Number Insured Name Patient Relationship to Insured Coverage Start Date Coverage End Date Medicare [facility] [address] [place] [address] [id number] Marquita Wild Self - patient is the insured Medical (General) History Medical History History ICD Code Hyperlipidemia Hypertension Chicken pox Measles Mumps Cataracts Thyroid disorder CAD (Cholesterol) Diverticulosis Hiatal hernia Surgical History Surgery Date(Month/Year) hysterectomy 1988 appendectomy 1948 tonsillectomy 1939 cataract surgery hernia 1988 [place] Reason [place] [facility] [place] feet. - No clottin g 06/17/19
--- OUTSIDE RECORDS SUMMARY | 2024-09-21 11:28 | XMS_ITS ---
Author Organization [facility] Address [address] [place] [address] Care Team Providers Care Electronics Inspector Name Role Phone Gretel Yu MD Primary Care Provider Unavail able Lucia Oconnell Unavailable [phone] Eleazar Marquez Unavailable [phone] Mcdonnell Encounters Encounter Location Date Provider Diagnosis [facility] [address] [place] [address] 03/27/2024 Eleazar Marquez Plan Of Treatment Next Appt Details Provider Name:Lucia arnold, 09/22/2024 10:00:00 AM, [address] [facility], [place] [address], [place], [address], Progress Notes * Marquita DHILLON FDOB: 2 (83 yo F)Acc No.[id number]:03/27/2024 Progress Note Patient:?Marquita DHILLON Provider:?Eleazar Marquez DPM :1940???Age:83 Y???Sex:Female D ate:03/27/2024 Address:[address] [place] [address], [address], [place], [id number] Pcp:Gretel Yu MD Subjective: * Chief Complaints: [...] DPM Date:? 024 Generated for Yoana weiss/Eileen/Jackelyn on:?09/21/2024 11:28 AM EST
== END 2024-09-21 10:59 | disposition home or self-care (01) ==
PROVIDERS: PCP Internal Medicine; Visit Provider Internal Medicine
DX: K59.04 Chronic idiopathic constipation (principal); K57.90 Diverticulosis of intestine, part unspecified, without perforation or abscess without bleeding; K44.9 Diaphragmatic hernia without obstruction or gangrene; R63.4 Abnormal weight loss
CPT/HCPCS: 99214

== ENCOUNTER 2024-09-23 09:47 | Outpatient (AMB) | payer MEDICARE, MEDICAID, SELFPAY ==
--- NOTE | 2024-09-23 09:55 | MHC.PC.OV ---
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 Required: No Accompanied by: Self / Same As Patient Allergies dicyclomine [From A-Spas (dicyclomine)] Adverse Reaction (Intermediate, Verified 09/23/24 10:20) diarrhea Medication List - Last Reconciled 09/23/24 by Gretel Cornejo MD acetaminophen (Tylenol Extra Strength) 500 mg PO Q6H PRN atorvastatin 20 mg PO DAILY cholecalciferol (vitamin D3) 25 mcg PO DAILY cyclosporine 0.05% (Restasis) 1 drp ophthalmic (eye) BID enalapril maleate 20 mg PO DAILY 90 days famotidine 20 mg PO DAILY levothyroxine 75 mcg PO QAM prednisone 4 mg PO DAILY Tobacco use date assessed: 09/23/24 Fall risk assessment: 1 Fall in past year Last assessed Fall Risk: 09/23/24 Dental Screening Dental Screen Date: 09/23/24 Did you have a dental visit in the last 12 months?: Yes Did you have a dental problem in the last 6 months where you did not have access to dental care?: No Was dental information given to patient?: Patient has dentist HPI HPI Comments History of Present Illness Details The patient is an 83-year-old female presenting with a follow-up for management of her chronic conditions. She has a history of essential hypertension, for which she takes enalapril 20 mg daily. She also has hyperlipidemia managed with atorvastatin 20 mg, and her last TSH test indicated normal thyroid function while on levothyroxine 75 mcg for hypothyroidism. She was diagnosed with polymyalgia rheumatica and takes prednisone, currently tapering down to 1 mg daily, concluding on October 14 to manage symptoms of hand swelling and stiffness. The patient has noted improvement in symptoms but experiences morning stiffness. Additionally, she reports arthritis which is relieved by Tylenol arthritis medication taken twice daily. She underwent an endoscopy, after which famotidine was prescribed for gastroesophageal reflux disease. Presently, she experiences no chest pain or shortness of breath. The patient was on dicyclomine previously but experienced diarrhea, reflecting the gastrointestinal impact of medications. She reports a significant past weight loss; however, she is currently experiencing slight weight gain which she wishes to manage. The BMI remains at 24, within normal limits. The patient has noticed episodic ankle swelling attributed to venous insufficiency, which resolves with periodic use of compression stockings. Moreover, she utilizes Restasis for dry eye syndrome. Prednisone may elevate blood sugar levels temporarily, hence further blood work is planned in four months. Socially, she has abstained from smoking, having quit many years ago, and does not consume alcohol. [facility] Medical History (Updated 09/23/24 @ 12:22 by Gretel Cornejo MD) Polymyalgia rheumatica Diverticulitis Esophageal hernia Impaired glucose tolerance Back pain Weight loss Left inguinal hernia GERD (gastroesophageal reflux disease) Hypothyroidism Essential hypertension Pure hypercholesterolemia Surgical History History of esophagogastroduodenoscopy (EGD) Hx of tonsillectomy Hx of colonoscopy History of inguinal hernia repair (~1987) History of appendectomy History of hysterectomy Family History Father COPD (chronic obstructive pulmonary disease) Mother Acute CVA (cerebrovascular accident) Hypertension Alcoholism Brother Stomach cancer Paternal Grandmother Uterine cancer Family/Other FH: mental illness Maternal Grandmother Hypertension Social History Housing: House Alcohol intake: never Patient Tobacco Use Status: Former Tobacco user Tobacco use type: Cigarette e-Cigarette/Vaping Use: Never Used Second Hand Smoke Exposure: No service: No Current occupational status: retired Cognitive needs: No Hearing needs: No Vision needs: Yes Questionnaire PHQ-9 Over the last 2 weeks, how often have you been bothered by any of the following problems? 1. Little interest or pleasure in doing things: not at all 2. Feeling down, depressed, or hopeless: not at all 3. Trouble falling or staying asleep, or sleeping too much: not at all 4. Feeling tired or having little energy: not at all 5. Poor appetite or overeating: not at all 6. Feeling bad about yourself - or that you are a failure or have let yourself or your family down: not at all 7. Trouble concentrating on things, such as reading the newspaper or watching television: not at all 8. Moving or speaking so slowly that other people could have noticed. Or the opposite - being so fidgety or restless that you have been moving around a lot more than usual: not at all 9. Thoughts that you would be better off or of hurting yourself in some way: not at all Total score: 0 Depression Screening Interpretation: Negative Depression Screening Done: Yes 17989 - PHQ-9 Billing: Yes Source: Developed by Drs. Fernando Stauffer, Selam Cabrera, Rao Roche and colleagues, with an educational hari from [employer]. Thrive Questionnaire Date Thrive assessed: 09/23/24 I am a: Patient What is your living situation today?: I have a steady place to live Within the past 12 months, did the food you bought not last and you didn't have the money to get more?: Never true Within the past 12 months, did you worry whether your food would run out before you got money to buy more?: Never true Do you have trouble paying for medicines?: No Do you have trouble getting transportation to medical appointments?: No Do you have trouble paying your heating and electricity bill?: No Do you have trouble taking care of your child, family member or friend?: No Do you have trouble with day-to-day activities such as bathing, preparing meals, shopping, managing finances, etc.?: No Are you currently unemployed and looking for a job?: No Are you interested in more education?: No Please select the resources that you would like help with: None Currently or been in a relationship where the following occur: No concerns reported THRIVE Score: 0 AUDIT C Alcohol Use Questionnaire (AUDIT-C) 1. How often do you have a drink containing alcohol?: Never Total Score: 0 Score Reviewed/Action Taken: No MICHELLE-7 AMB Questionnaire MICHELLE-7 Date MICHELLE - 7 assessed: 09/23/24 Feeling nervous, anxious, or on edge: 0 = Not at all Not being able to stop or control worryin = Not at all Worrying too much about different things: 0 = Not at all Trouble relaxin = Not at all Being so restless that it is hard to sit still: 0 = Not at all Becoming easily annoyed or irritable: 0 = Not at all Feeling afraid as if something awful might happen: 0 = Not at all Total MICHELLE-7 score (0-4 normal; 5-9 mild; 10-14 moderate; 15-21 severe): 0 Source: Developed by Drs. Fernando Stauffer, Selam Cabrera, Rao Roche and colleagues, with an educational hari from [employer]. MICHELLE-7 Assessment Billing MICHELLE-7 Assessment Tool: MICHELLE-7 Assessment 98965 Review of Systems Const All systems reviewed & are unremarkable except as noted in HPI and below Card Denies chest pain at rest, Denies chest pain with activity, Denies edema, Denies irregular heart rhythm, Denies claudication, Denies dyspnea, Denies dyspnea on exertion, Denies orthopnea, Denies paroxysmal nocturnal dyspnea and Denies slow heart rate Resp Denies cough, Denies dyspnea and Denies dyspnea on exertion Physical exam (Primary Care) Vital Signs: Last Vital Signs BP 130/70 09/23/24 10:01 BMI result Body Mass Index 24.4 Tobacco/Smoking Status: Tobacco use Status Tobacco use date assessed 09/23/24 09/23/24 10:08 Patient Tobacco Use Status Former Tobacco user 09/23/24 09:58 Tobacco use type Cigarette 09/23/24 09:58 e-Cigarette/Vaping Use Never Used 09/23/24 09:58 PHQ-9: PHQ-9 Score PHQ-9: Total score 0 09/23/24 10:24 Depression Screening Interpretation: Negative Thrive Assessment: Date of Thrive Assessment Date Thrive assessed 09/23/24 09/23/24 09:58 Currently or been in a relationship where the following occur: No concerns reported Resp Effort & Inspection: normal respiratory effort Auscultation: clear to auscultation bilaterally Cardio Jugular venous distension: no JVD Rate: regular rate Rhythm: regular rhythm Heart sounds: S1 normal heart sound present and S2 normal heart sound present Extrem General: Yes full ROM Coding Level of Care Code Est Pt Level 4 (17998) Complex EM visit Add On G2211 Diagnoses Pure hypercholesterolemia E78.00 Essential hypertension I10 Hypothyroidism, unspecified type E03.9 Hypothyroidism type: unspecified Polymyalgia rheumatica M35.3 Additional Codes MICHELLE-7 Assessment Billing - MICHELLE-7 Assessment Tool: MICHELLE-7 Assessment 56250 ([id number]) PHQ-9 - 01829 - PHQ-9 Billing: Yes ([id number]) Time Spent (min) 22 Assessment & Plan Assessment & Plan (1) Pure hypercholesterolemia: Code(s): E78.00 - Pure hypercholesterolemia, unspecified Category: Medical (2) Essential hypertension: Code(s): I10 - Essential (primary) hypertension Category: Medical (3) Hypothyroidism: Code(s): E03.9 - Hypothyroidism, unspecified Category: Medical Qualifiers: Hypothyroidism type: unspecified Qualified Code(s): E03.9 - Hypothyroidism, unspecified (4) Polymyalgia rheumatica: Comment: follows w/[facility] Code(s): M35.3 - Polymyalgia rheumatica Category: Medical Plan - Continue enalapril and monitor blood pressure. - Maintain atorvastatin for cholesterol management. - Continue levothyroxine; repeat TSH in four months. - Gradually wean off prednisone, monitor symptoms of polymyalgia rheumatica. - Continue Tylenol for arthritis symptoms as needed. - Maintain famotidine for GERD post-endoscopy. - Advise periodic use of compression stockings for venous insufficiency. - Schedule follow-up blood work to assess any prednisone-induced changes. - Monitor weight and encourage dietary modifications. Patient was informed and verbally consented to the use of an ambient scribe for clinic note documentation during this visit. I discussed with the patient that her chronic conditions are stable under current management practices. We reviewed the benefits and rationale for continuing with her medications, including enalapril, atorvastatin, and levothyroxine. I explained the importance of tapering prednisone carefully to control polymyalgia rheumatica symptoms while minimizing potential side effects. We talked about the use of Tylenol for arthritis and the effectiveness of compression stockings in managing venous insufficiency. I stressed the significance of weight management and the patient's goal to lower her weight slightly. Follow-up blood work is crucial to monitor thyroid function and any potential blood sugar changes once prednisone is discontinued. Anticipatory guidance was given regarding symptom monitoring and reasons to return for care sooner. Orders: Orders Vitamin D 25-OH Total 4 Months E55.9 - Vitamin D deficiency, unspecified Comprehensive [place]. Panel Fast 4 Months I10 - Essential (primary) hypertension Lipid Panel 4 Months E78.5 - Hyperlipidemia, unspecified Thyroid Stimulating Hormone 4 Months E03.9 - Hypothyroidism, unspecified Patient Instructions: - Continue prescribed medications as directed. - Wear compression stockings periodically. - Monitor blood pressure at home. - Follow weight management strategies. - Note symptom changes, especially hand swelling and morning stiffness. - Return for scheduled blood work in four months. - Seek medical attention if significant swelling, chest pain, or difficulty breathing occurs.
[2024-09-23 10:01] VITALS: BP 130/70; BMI 24.4
== END 2024-09-23 10:31 | disposition home or self-care (01) ==
PROVIDERS: PCP Internal Medicine; Visit Provider Internal Medicine
DX: E78.00 Pure hypercholesterolemia, unspecified (principal); I10 Essential (primary) hypertension; E03.9 Hypothyroidism, unspecified; M35.3 Polymyalgia rheumatica

== ENCOUNTER → 2024-09-23 09:47 | Outpatient (BNVA) | payer MEDICARE, MEDICAID, SELFPAY | PROVIDERS: PCP Internal Medicine; Visit Provider Internal Medicine | DX: I10 Essential (primary) hypertension (principal); E78.00 Pure hypercholesterolemia, unspecified; M35.3 Polymyalgia rheumatica; E03.9 Hypothyroidism, unspecified; E55.9 Vitamin D deficiency, unspecified; E78.5 Hyperlipidemia, unspecified | CPT/HCPCS: 96127; 99212 ==

== ENCOUNTER 2024-10-07 09:15 | Outpatient (REF) | payer MEDICARE, MEDICAID, SELFPAY | END 2024-10-07 09:16 | disposition home or self-care (01) | LOC: HO.MAMMO 09:15 | PROVIDERS: PCP Internal Medicine; Visit Provider Internal Medicine | DX: Z12.31 Encounter for screening mammogram for malignant neoplasm of breast (principal) | CPT/HCPCS: 77063; 77067 ==

== ENCOUNTER → 2024-10-07 09:30 | Outpatient (BNV) | payer MEDICARE, MEDICAID, SELFPAY | PROVIDERS: PCP Internal Medicine; Visit Provider Internal Medicine | DX: Z12.31 Encounter for screening mammogram for malignant neoplasm of breast (principal) | CPT/HCPCS: 77063; 77067 ==

== ENCOUNTER 2025-02-10 06:03 | Outpatient (REF) | payer MEDICARE, MEDICAID, SELFPAY ==
--- OUTSIDE RECORDS SUMMARY | 2025-02-10 06:05 | XMS_ITS | Clinical Summary ---
Author Organization [employer] Address [address] [facility] [address] [place] [address] Care Team Providers Care Anesthesiologist And Critical Care Name Role Phone Unavailable Primary Care Provider Unavailabl e Encounters Date Type Department Care Team Description 12/01/2024 3:05 PM EDT Immunization [facility] [address] [place] [address] Encounter for immunization from Last 3 Months Immunizations Immunization Administration Dates Next Due Pfizer Covid-19 Vaccine 12+ 12/01/2024 Social History Tobacco Use Types Packs/Day Years Used Date Smoking Tobacco: Never Assessed Comments Unknown Sex and Gender Information Value Date Recorded Sex Assigned at Female 12/01/2024 2:04 PM EDT Legal Sex Female 2:03 PM EDT Gender Identity Female 12/01/2024 2:04 PM EDT Sexual Orientation Straight 12/01/2024 2: 04 PM EDT Plan of Treatment Health Maintenance Due Date Last Done Comments Depression Screening 1940 SDOH Screening 1940 Alcohol/Substance Use Screening 1953 Tobacco Screening 1952 DTaP/Tdap/Td Vaccines (1 - Tdap) 1960 Pneumococcal Vaccine: 50+ Ye ars (1 of 1 - PCV) 11/18/1991 Zoster Vaccines (1 of 2) 11/18/1991 RSV Patients and Pa tients Aged 60 years or older (1 - 1-dose 75+ series) 2016 Influenza Vaccine (Season Ended) 2025 COVID-19 Vaccine (2 - 2023-2 5 season) 2025 12/01/2024 HIB Vaccines Aged Out No longer eligi ble based on patient's age to complete this topic HPV Vaccines Aged Out No longer eligi ble based on patient's age to complete this topic Hepatitis A Vaccines Aged Out No long er eligible based on patient's age to complete this topic Hepatitis B Vaccines Aged Out No long er eligible based on patient's age to complete this topic IPV Vaccines Aged Out No longer eligi ble based on patient's age to complete this topic Meningococcal B Vaccine Aged Out No l onger eligible based on patient's age to complete this topic Meningococcal Vaccine Aged Out No nina britney eligible based on patient's age to complete this topic RSV under 20 months Aged Out No longe r eligible based on patient's age to complete this topic Rotavirus Vaccines Aged Out No longer eligible based on patient's age to complete this topic Insurance MEDICARE [facility]
[2025-02-10 07:35] LABS: Anion Gap 14 (12-20)
[2025-02-10 07:56] LABS: Alanine Aminotransferase 18 U/L (0-31); Albumin Level 4.1 g/dL (3.5-5.0); Aspartate Amino Transferase 23 U/L (5-31); Bilirubin Total 0.4 mg/dL (0.0-1.0); Blood Urea Nitrogen 18 mg/dL (9-16); Calcium 9.7 mg/dL (8.4-10.2); Carbon Dioxide 28 mmol/L (22-29); Chloride 109 mmol/L (96-108); Cholesterol 161 mg/dL (<200); Estimated Glomerular Filt Rate > 60; Glucose Fasting 102 mg/dL (60-99); HDL Cholesterol 47 mg/dL (>40); LDL Cholesterol Calculated 85 mg/dL (<100); Potassium 4.4 mmol/L (3.3-5.1); Sodium 147 mmol/L (135-145); Total Protein 6.6 g/dL (6.5-8.0); Triglycerides 148 mg/dL (<150)
[2025-02-10 08:09] LABS: Thyroid Stimulating Hormone 1.34 uIU/mL (0.32-4.0); Vitamin D 25-OH Total 38.6 ng/mL (>30)
[2025-02-10 13:07] LABS: Alkaline Phosphatase 93 U/L (39-117)
== END 2025-02-10 06:04 | disposition home or self-care (01) ==
LOC: HO.LAB 06:03
PROVIDERS: PCP Internal Medicine; Visit Provider Internal Medicine
DX: E55.9 Vitamin D deficiency, unspecified (principal); E03.9 Hypothyroidism, unspecified; K21.9 Gastro-esophageal reflux disease without esophagitis; E78.5 Hyperlipidemia, unspecified
CPT/HCPCS: 36415; 80053; 80061; 82306; 84443

== ENCOUNTER 2025-02-15 07:48 | Outpatient (AMB) | payer MEDICARE, MEDICAID, SELFPAY ==
--- NOTE | 2025-02-15 07:51 | A.OFFPC_ITS ---
Vital Signs 02/15/25 07:52 Height 4 ft 11 in Weight 121 lb BMI 24.4 BP 136/70 Blood Pressure Location Lt brachial Position Sitting Intake Visit Reasons: bp Intake Note: Patient here for a follow up BP Embroidery Operator Required: No Accompanied by: Self / Same As Patient Allergies dicyclomine [From A-Spas (dicyclomine)] Adverse Reaction (Intermediate, Verified 02/15/25 08:09) diarrhea Medication List - Last Reconciled 02/15/25 by Gretel Cornejo MD acetaminophen (Tylenol Extra Strength) 500 mg PO Q6H PRN atorvastatin 20 mg PO DAILY cholecalciferol (vitamin D3) 25 mcg PO DAILY cyclosporine 0.05% (Restasis) 1 drp ophthalmic (eye) BID enalapril maleate 20 mg PO DAILY 90 days famotidine 20 mg PO DAILY levothyroxine 75 mcg PO QAM prednisone 4 mg PO DAILY Tobacco use date assessed: 09/23/24 Fall risk assessment: No Falls in past year Last assessed Fall Risk: 02/15/25 Dental Screening Dental Screen Date: 09/23/24 HPI HPI Comments History of Present Illness Details The patient is an 84-year-old female presenting for follow-up of her chronic conditions. Her essential hypertension is managed with enalapril 20 mg daily, and hypothyroidism is treated with levothyroxine 75 mcg daily. The dyslipidemia is addressed with atorvastatin 20 mg daily. Currently, she reports no acute symptoms such as chest pain or shortness of breath, reflecting effective management of her hypertension, observed in consistent normal blood pressure readings. She has polymyalgia rheumatica follow by Rheumatology. Her recent vaccination history is updated, with a tetanus shot received on February 11 and being up-to-date with pneumonia vaccines. The patient underwent a mammogram in September this year and needs follow-up on bone density testing to monitor for osteoporosis, with the previous test conducted in 2021. She has finished a course of prednisone on November 09 and describes swelling in her hands and trigger fingers related to crocheting, for which she receives care from Dr. Mehta. Their plan includes reevaluation after understanding the impact of environmental changes on her symptoms. Laboratory results show excellent overall health with only mild sodium elevation; other parameters, such as total protein, sugar, and thyroid levels, remain normal. We discussed regular monitoring and repeating the blood work in six months. [facility] Medical History Polymyalgia rheumatica Diverticulitis Esophageal hernia Impaired glucose tolerance Back pain Weight loss Left inguinal hernia GERD (gastroesophageal reflux disease) Hypothyroidism Essential hypertension Pure hypercholesterolemia Surgical History History of esophagogastroduodenoscopy (EGD) Hx of tonsillectomy Hx of colonoscopy History of inguinal hernia repair (~1987) History of appendectomy History of hysterectomy Family History Father COPD (chronic obstructive pulmonary disease) Mother Acute CVA (cerebrovascular accident) Hypertension Alcoholism Brother Stomach cancer Paternal Grandmother Uterine cancer Family/Other FH: mental illness Maternal Grandmother Hypertension Social History Housing: House Alcohol intake: never Patient Tobacco Use Status: Former Tobacco user Tobacco use type: Cigarette e-Cigarette/Vaping Use: Never Used Second Hand Smoke Exposure: No service: No Current occupational status: retired Cognitive needs: No Hearing needs: No Vision needs: Yes Questionnaire PHQ-9 Over the last 2 weeks, how often have you been bothered by any of the following problems? 1. Little interest or pleasure in doing things: not at all 2. Feeling down, depressed, or hopeless: not at all 3. Trouble falling or staying asleep, or sleeping too much: not at all 4. Feeling tired or having little energy: not at all 5. Poor appetite or overeating: not at all 6. Feeling bad about yourself - or that you are a failure or have let yourself or your family down: not at all 7. Trouble concentrating on things, such as reading the newspaper or watching television: not at all 8. Moving or speaking so slowly that other people could have noticed. Or the opposite - being so fidgety or restless that you have been moving around a lot more than usual: not at all 9. Thoughts that you would be better off or of hurting yourself in some way: not at all Total score: 0 Depression Screening Interpretation: Negative Depression Screening Done: Yes 53544 - PHQ-9 Billing: Yes Source: Developed by Drs. Fernando Stauffer, Selam Cabrera, Rao Roche and colleagues, with an educational hari from [employer]. Thrive Questionnaire Date Thrive assessed: 09/23/24 I am a: Patient What is your living situation today?: I have a steady place to live Within the past 12 months, did the food you bought not last and you didn't have the money to get more?: Never true Within the past 12 months, did you worry whether your food would run out before you got money to buy more?: Never true Do you have trouble paying for medicines?: No Do you have trouble getting transportation to medical appointments?: No Do you have trouble paying your heating and electricity bill?: No Do you have trouble taking care of your child, family member or friend?: No Do you have trouble with day-to-day activities such as bathing, preparing meals, shopping, managing finances, etc.?: No Are you currently unemployed and looking for a job?: No Are you interested in more education?: No Please select the resources that you would like help with: None Currently or been in a relationship where the following occur: No concerns reported THRIVE Score: 0 AUDIT C Alcohol Use Questionnaire (AUDIT-C) 1. How often do you have a drink containing alcohol?: Never Total Score: 0 Score Reviewed/Action Taken: No MICHELLE-7 AMB Questionnaire MICHELLE-7 Date MICHELLE - 7 assessed: 09/23/24 Feeling nervous, anxious, or on edge: 0 = Not at all Not being able to stop or control worryin = Not at all Worrying too much about different things: 0 = Not at all Trouble relaxin = Not at all Being so restless that it is hard to sit still: 0 = Not at all Becoming easily annoyed or irritable: 0 = Not at all Feeling afraid as if something awful might happen: 0 = Not at all Total MICHELLE-7 score (0-4 normal; 5-9 mild; 10-14 moderate; 15-21 severe): 0 Source: Developed by Drs. Fernando Stauffer, Selam Cabrera, Rao Roche and colleagues, with an educational hari from [employer]. MICHELLE-7 Assessment Billing MICHELLE-7 Assessment Tool: MICHELLE-7 Assessment 80948 Review of Systems Const All systems reviewed & are unremarkable except as noted in HPI and below Card Denies chest pain at rest, Denies chest pain with activity, Denies edema, Denies irregular heart rhythm, Denies claudication, Denies dyspnea, Denies dyspnea on exertion, Denies orthopnea, Denies paroxysmal nocturnal dyspnea and Denies slow heart rate Resp Denies cough, Denies dyspnea and Denies dyspnea on exertion GI Denies abdominal pain, Denies change in bowel habits, Denies excessive flatus, Denies nausea and Denies vomiting Denies urinary incontinence, Denies urinary hesitancy and Denies urinary urgency Musc Denies abnormal gait, Denies atrophy, Denies deformity and Denies limited range of motion Skin/Breast Denies bleeding lesions, Denies changing lesions and Denies rash Neuro Denies abnormal gait and Denies lack of coordination Physical exam (Primary Care) Vital Signs: Last Vital Signs BP 136/70 02/15/25 07:52 BMI result Body Mass Index 24.4 Tobacco/Smoking Status: Tobacco use Status Tobacco use date assessed 09/23/24 02/15/25 08:01 Patient Tobacco Use Status Former Tobacco user 02/15/25 08:01 Tobacco use type Cigarette 02/15/25 08:01 e-Cigarette/Vaping Use Never Used 02/15/25 08:01 PHQ-9: PHQ-9 Score PHQ-9: Total score 0 02/15/25 08:10 Depression Screening Interpretation: Negative Thrive Assessment: Date of Thrive Assessment Date Thrive assessed 09/23/24 02/15/25 08:01 Currently or been in a relationship where the following occur: No concerns reported Resp Effort & Inspection: normal respiratory effort Auscultation: clear to auscultation bilaterally Cardio Jugular venous distension: no JVD Rate: regular rate Rhythm: regular rhythm Heart sounds: S1 normal heart sound present and S2 normal heart sound present Extrem General: Yes full ROM Coding Level of Care Code Est Pt Level 4 (56616) Complex EM visit Add On G2211 Diagnoses Essential hypertension I10 Pure hypercholesterolemia E78.00 Hypothyroidism, unspecified type E03.9 Hypothyroidism type: unspecified Gastroesophageal reflux disease, unspecified whether esophagitis present K21.9 Esophagitis presence: esophagitis presence not specified Polymyalgia rheumatica M35.3 Additional Codes MICHELLE-7 Assessment Billing - MICHELLE-7 Assessment Tool: MICHELLE-7 Assessment 08610 ([id number]) PHQ-9 - 91830 - PHQ-9 Billing: Yes ([id number]) Time Spent (min) 23 Assessment & Plan Assessment & Plan (1) Essential hypertension: Code(s): I10 - Essential (primary) hypertension Category: Medical (2) Pure hypercholesterolemia: Code(s): E78.00 - Pure hypercholesterolemia, unspecified Category: Medical (3) Hypothyroidism: Code(s): E03.9 - Hypothyroidism, unspecified Category: Medical Qualifiers: Hypothyroidism type: unspecified Qualified Code(s): E03.9 - Hypothyroidism, unspecified (4) GERD (gastroesophageal reflux disease): Code(s): K21.9 - Gastro-esophageal reflux disease without esophagitis Category: Medical Qualifiers: Esophagitis presence: esophagitis presence not specified Qualified Code(s): K21.9 - Gastro-esophageal reflux disease without esophagitis (5) Polymyalgia rheumatica: Comment: follows /[facility] Code(s): M35.3 - Polymyalgia rheumatica Category: Medical Plan The patient's management for essential hypertension, hypothyroidism, and dyslipidemia includes ongoing medication adherence and monitoring. Bone density testing is planned to evaluate osteoporosis risk further. Her stable chronic conditions allow for the continuation of current therapeutic strategies, ensuring routine check-ups and repeating blood work in six months. Hand swelling and trigger fingers are under review, with future assessments by Dr. Mehta. No immediate changes to her medication regimen are warranted unless future evaluations suggest additional interventions. Patient was informed and verbally consented to the use of an ambient scribe for clinic note documentation during this visit. During this visit, I discussed with the patient her existing conditions and management strategies, including the continuation of enalapril for hypertension, levothyroxine therapy for hypothyroidism, and atorvastatin for lipid management. Given her stable clinical presentation, I recommended maintaining her current medication protocol while monitoring symptom progression. We addressed her hand symptoms, agreeing to a follow-up plan with Dr. Mehta to reassess potential cortisone injection needs. I reviewed her mild sodium elevation, suggesting dietary modifications, and scheduled future blood work to track her health status. Anticipated routine evaluations include a bone density scan for osteoporosis monitoring. I confirmed her understanding of the management plan and answered any questions, emphasizing schedule adherence and re-evaluation timeliness. Orders: Orders Vitamin D 25-OH Total 6 Months E55.9 - Vitamin D deficiency, unspecified Comprehensive [place]. Panel Fast 6 Months R73.02 - Impaired glucose tolerance (oral) Thyroid Stimulating Hormone 6 Months E03.9 - Hypothyroidism, unspecified XR DEXA axial skeleton Today Z78.0 - Asymptomatic menopausal state Lipid Panel 6 Months E78.5 - Hyperlipidemia, unspecified Medications: Changed From famotidine 20 mg PO DAILY 90 tabs 0RF To famotidine 20 mg PO DAILY 90 tabs 1RF 90 days Patient Instructions: - Continue taking prescribed medications, including enalapril, levothyroxine, and atorvastatin as directed. - Watch and limit sodium intake in the diet. - Complete bone density testing as scheduled. - Follow up with Dr. Mehta in three weeks regarding hand symptoms. - Adhere to the routine blood work schedule in six months. - Maintain vaccination status and continue overall health maintenance. - Contact the clinic if you experience any new symptoms or worsening of current conditions.
--- OUTSIDE RECORDS SUMMARY | 2025-02-15 07:51 | XMS_ITS | Clinical Summary ---
Author Organization [employer] Address [address] [facility] [address] [place] [address] Care Team Providers Care Security Operations Engineer Name Role Phone Unavailable Primary Care Provider Unavailabl e Encounters Date Type Department Care Team Description 12/01/2024 3:05 PM EDT Immunization [facility] [address] [place] [address] Encounter for immunization from Last 3 Months [...] age to complete this topic Insurance MEDICARE [facility]
[2025-02-15 07:52] VITALS: BP 136/70; BMI 24.4
== END 2025-02-15 08:21 | disposition home or self-care (01) ==
LOC: HO.HMCH 07:49
PROVIDERS: PCP Internal Medicine; Visit Provider Internal Medicine
DX: I10 Essential (primary) hypertension (principal); E78.00 Pure hypercholesterolemia, unspecified; E03.9 Hypothyroidism, unspecified; K21.9 Gastro-esophageal reflux disease without esophagitis; M35.3 Polymyalgia rheumatica

== ENCOUNTER → 2025-02-15 07:48 | Outpatient (BNVA) | payer MEDICARE, MEDICAID, SELFPAY | PROVIDERS: PCP Internal Medicine; Visit Provider Internal Medicine | DX: I10 Essential (primary) hypertension (principal); E78.00 Pure hypercholesterolemia, unspecified; E03.9 Hypothyroidism, unspecified; K21.9 Gastro-esophageal reflux disease without esophagitis; M35.3 Polymyalgia rheumatica | CPT/HCPCS: 96127; 99212 ==

== ENCOUNTER 2025-03-25 12:39 | Outpatient (REF) | payer MEDICARE, MEDICAID, SELFPAY ==
--- OUTSIDE RECORDS SUMMARY | 2024-03-27 10:00 | XMS_ITS ---
Author Organization [facility] Address [address] [place] [address] Care Team Providers Care Phlebotomy Specialist Name Role Phone Aimee CHACON, Gretel Primary Care Provider Unavail able Lucia Oconnell Unavailable [phone] Eleazar Marquez Unavailable [phone] Mcdonnell Encounters Encounter Location Date Provider Diagnosis [facility] [address] [place] [id number] 03/27/2024 Eleazar Marquez Plan Of Treatment Next Appt Details Provider Name:Lucia arnold, 04/20/2025 10:00:00 AM, [address] [facility], [place], [place] [address], [place], [address], Progress Notes * Odilia DHILLONa FDOB: 2 (84 yo F)Acc No.[id number]:03/27/2024 Progress Note Patient: Marquita MENDOZA Provider: Jere Marquez DPM :1940 A ge:83 Y S ex:Female Date:03/27/2024 Address:[address] [place] [address], [address] [place] [id number] Pcp:Gretel Yu MD Subjective: * Chief Complaints: [...] Pending * Provider: Jere Marquez DPM Date: 03/27/2024 Generated for Yoana Guzman/Jackelyn on: 03/25/2025 01:05 PM EDT
--- NOTE | ~2025-03-25 | MM_ITS ---
EXAMINATION: DXA BONE DENSITY AXIAL HISTORY: Z78.0 - Asymptomatic menopausal state TECHNIQUE: [employer] Dual energy absorptiometry (DEXA) of the lumbar spine, total left hip, and femoral neck was performed. COMPARISON: Comparison is made with the prior examination dated 10/04/2021. FINDINGS: The bone mineral density of the lumbar spine is 1.037 g/cm2, corresponding to a T-score of -1.1, and a Z-score of 1.1. This is indicative of osteopenia. This represents a BMD change of -4.9% compared to the prior exam. This is statistically significant. The bone mineral density of the left total hip is 0.782 g/cm2, corresponding to a T-score of -1.8, and a Z-score of 0.6. This is indicative of osteopenia. This represents a BMD change of -11.0% compared to the prior exam. This is statistically significant. The bone mineral density of the left femoral neck is 0.748 g/cm2, corresponding to a T-score of -2.1, and a Z-score of 0.4. This is indicative of osteopenia. This represents a BMD change of -19.3% compared to the prior exam. FRACTURE RISK: The FRAX index suggests a ten year probability of major osteoporotic fracture of 24.5%, and of hip fracture 9.2%. MM/XR DEXA axial skeleton IMPRESSION: Based on bone mineral density, and according to World Health Organization (WHO) criteria, the diagnosis is consistent with osteopenia. Statistically, 68% of repeat scans fall within 1 SD (+/- 0.010 g/cm2 for AP spine L1-L4) and 1 SD (+/- 0.012 g/cm2 for femur total) FRAX is a trademark of the [employer] [facility] [employer], a World Health Organization (WHO) Collaborating Center. Electronically signed by: Fernando Holley MD 03/25/2025 01:33 PM EDT
--- OUTSIDE RECORDS SUMMARY | 2025-03-25 13:05 | XMS_ITS | Patient Health Record ---
Author Organization [facility] Address [address] [place] [address] Care Team Providers Care Registered Radiographer Name Role Phone Fernando Henson [phone] Reason For Referral No Information Problems Problem Type SNOMED Code ICD Code Onset Dates Problem Status W/U Status Risk Notes Problem History of polyp of colon (situation) (419146766) Personal history of colonic polyps (V12.72) Active confirmed Problem Special screening for malignant neoplasms, colon (V76.51) Active confirmed Plan Of Treatment No Information Insurance Providers Payer Name Payer Address Payer Phone Subscriber Number Group Number Insured Name Patient Relationship to Insured Coverage Start Date Coverage End Date [place] [address] [place] [address] [id number] SR JUSTICE DHILLON Self - patient is the insured [employer] [address] [place] [address] [id number] SR JUSTICE DHILLON Self - patient is the insured
--- OUTSIDE RECORDS SUMMARY | 2025-03-25 13:05 | XMS_ITS | Clinical Summary ---
Author Organization [employer] Address [address] [facility] [address] [place] [address] Care Team Providers Care Payroll And Benefits Manager Name Role Phone Unavailable Primary Care Provider Unavailabl e Immunizations Immunization Administration Dates Next Due Pfizer [...] - 1-dose 75+ series) 2016 Influenza Vaccine (#1) 2025 COVID-19 Vaccine (2 - 2023-2 5 [...] age to complete this topic Insurance [place] [address] [place] [id number] [facility]
== END 2025-03-25 12:40 | disposition home or self-care (01) ==
LOC: HO.MAMMO 12:39
PROVIDERS: PCP Internal Medicine; Visit Provider Internal Medicine
DX: Z13.820 Encounter for screening for osteoporosis (principal); Z78.0 Asymptomatic menopausal state
CPT/HCPCS: 77080

== ENCOUNTER → 2025-03-25 13:00 | Outpatient (BNV) | payer MEDICARE, MEDICAID, SELFPAY | PROVIDERS: PCP Internal Medicine; Visit Provider Radiology Diagnostic Radiology | DX: E28.39 Other primary ovarian failure (principal) | CPT/HCPCS: 77080 ==

== ENCOUNTER 2025-08-12 06:12 | Outpatient (REF) | payer MEDICARE, MEDICAID, SELFPAY ==
--- OUTSIDE RECORDS SUMMARY | 2024-03-27 09:00 | XMS_ITS ---
Author Organization [facility] Address [address] [place] [address] Care Team Providers Care Fleet Maintenance Manager Name Role Phone Aimee CHACON, Gretel Primary Care Provider Unavail able Lucia Oconnell Unavailable [phone] Eleazar Peters Unavailable [phone] Mcdonnell Encounters Encounter Location Date Provider Diagnosis [facility] [address] [place] [id number] 03/27/2024 Eleazar Peters Plan Of Treatment Next Appt Details Provider Name:Lucia Shanika arnold, 10/26/2025 11:15:00 AM, [address], [id number], Progress Notes * Marquita DHILLON FDOB: [birth year] (84 yo F)Acc No.[id number]:03/27/2024 Progress Note Patient: Marquita MENDOZA Provider: Jere Marquez DPM :1940 A ge:83 Y S ex:Female Date:03/27/2024 Address:[address] [place] [address], [address], [place], [id number] Pcp:Gretel Yu MD Subjective: * Chief Complaints: * [address] Mcdonnell[address] * Medical History: Objective: * Vitals: Assessment: Plan: * Treatment: * Images: * The named appointment provid er may or may not be the originator of this progress note, and it is not deemed complete until electronically signed by the appointment provider. Sign off status: Pending * Provider: Jere Marquez DPM Date: 0 03/27/2024 Generated for Yoana weiss/Eileen/Jackelyn on: 1 10/13/2024 06:17 AM EST
--- OUTSIDE RECORDS SUMMARY | 2025-05-28 04:00 | XMS_ITS ---
[facility] Address [address] [place] [address] Care Team Providers Care Push Connector Assembler Name Role Phone Aimee CHACON, Gretel Primary Care Provider Unavail Lucia Medina Unavailable [phone] Encounters Encounter Location Date [facility] [address] 05/28/2025 Lucia Oconnell Plan Of Treatment Next Appt Details Provider Name:Lucia arnold, 10/26/2025 11:15:00 AM, [address] [place] [address], [id number], Progress Notes * Marquita DHILLON FDOB: [birth year] (84 yo F)Acc No.[id number]:05/28/2025 Progress Note Patient: Marquita MENDOZA Provider: Maryjane Oconnell DPM :1940 A ge:84 Y S ex:Female Date:05/28/2025 Address:[address] [place] [address], [address], [place], [id number] Pcp:Gretel Yu MD Subjective: * Chief Complaints: * * Medical History: Objective: * Vitals: Assessment: Plan: * Treatment: * Images: * The named appointment provid er may or may not be the originator of this progress note, and it is not deemed complete until electronically signed by the appointment provider. Sign off status: Pending * Provider: Maryjane Oconnell DPM Date: 0 05/28/2025 Generated for Yoana Guzman/Jackelyn on: 10/13/2024 06:16 AM EST
--- OUTSIDE RECORDS SUMMARY | 2025-08-12 06:16 | XMS_ITS | Clinical Summary ---
Author Organization [employer] Address [address] [facility] [address] [place] [address] Care Team Providers Care Keg Inspector Name Role Phone Unavailable Primary Care Provider Unavailabl e Encounters Date Type Department Care Team Description 06/01/2025 1:35 PM EDT Immunization [facility] [address] [place] [address] Roz Rodriguez RN Encounter for vaccination; Encounter for immunization from Last 3 Months Immunizations Immunization Administration Dates Next Due Influenza, High Dose Seasonal, Preservative Free 06/01/2025 Pfizer Covid-19 Vaccine 12+ 06/01/2025, Social History Tobacco Use Types Packs/Day Years [...] Alcohol/Substance Use Screening 1952 Tobacco Screening 1952 Pneumococcal Vaccine: 50+ Years (2 of 2 - PCV) 06/15/2020 06/15/2019 COVID-19 Vaccine ( season) 2025 06/01/2025, 12/01/2024, 05/12/2024, Additional history exists DTaP/Tdap/Td Vaccines (2 - Td or Tdap) 02/11/2035 02/11/2025, 06/15/2019 Zoster Vaccines Completed 10/16/2019, 07/27/2019 RSV Patients and Patients Aged 60 years or older Completed 10/28/2024 Influenza Vaccine Completed 06/01/2025, , 05/26/2023, Additional history exists HIB Vaccines Aged Out No longer eligi [...] age to complete this topic Insurance MEDICARE [facility]
--- OUTSIDE RECORDS SUMMARY | 2025-08-12 06:17 | XMS_ITS | Patient Health Record ---
Author [facility] Address [address] [place] [address] Care Team Providers Care Parachute Officer Name Role Phone Aimee CHACON, Gretel Primary Care Provider Unavail able Lucia Oconnell Unavailable [phone] Allergies No Known Allergies Reason For Referral No Information Medications Medication SIG (Take, Route, Frequency, Duration) Notes Start Date End Date Status Levothyroxine Sodium 75 MCG 1 tablet in the morning on an empty stomach Orally Active Enalapril Maleate 20 MG 1 tablet Orally Active Restasis Active predniSONE Not-Takin g AmLactin 12 % 1 application to affected area Externally Twice a day to feet; Duration: 30 days Not-Taking Omeprazole 40 MG 1 capsule 30 minutes before morning meal Orally Once a day; Duration: 30 day(s) Not-Taking Dicyclomine HCl 20 MG 1 tablet Orally Three times a day; Duration: 30 day(s) Not-Taking hydroCHLOROthiazide Not-Taking Famotidine 20 MG 1 tablet at bedtime as needed Orally Once a day Active Atorvastatin Calcium 20 MG 1 tablet Orally Active Immunizations Vaccine Route Administration Date Status Comme nts Influenza Unknown 05/12/2024 Administered Social History Tobacco Use: Social History Observation Description Date Details (start date - stop date) Never Smoker NA - NA Tobacco use other than smoking: Question Answer Notes Are you an other tobacco user? No Tobacco Control (Standard) Question Answer Notes Tobacco use: Nonsmoker Additional Findings: Tobacco non-user Current no nsmoker AUDIT-C (Standard) Question Answer Notes Did you have a drink containing alcohol in the p ast year? No Points 0 Interpretation Negative Problems Problem Type SNOMED Code ICD Code Onset Dates Problem Status W/U Status Risk Notes Problem Acquired hallux valgus (78512381) Hallux valgus (acquired), left foot (M20.12) Active confirmed Problem Localized, primary osteoarthritis of the ankle and/or foot (915842450) Primary osteoarthrit is, right ankle and foot (M19.071) Active confirmed Problem Localized, primary osteoarthritis of the ankle and/or foot (878764940) Primary osteoarthrit is, left ankle and foot (M19.072) Active confirmed Problem Acquired hammer toe of left foot (9328628760126735) Other hammer toe(s) (acquired), left foot (M20.42) Active confirmed Vital Signs Blood pressure diastolic 65 mm Hg 07/23/2025 Height 4 ft 11 in in 07/23/2025 Blood pressure systolic 120 mm Hg 07/23/2025 Weight 120 lbs 07/23/2025 BMI 24.23 kg/m2 07/23/2025 Procedures Procedure Date Ordered Date Performed Result Body Sit e 51654-XBYZADM NAIL, 6 OR MORE 09/22/2024 N/A Encounters Encounter Location Date Provider Diagnosis [address] [address] 09/22/2024 Lucia Oconnell Pain in right toe(s) M79.674 ; Onychomycosis B35.1 and Pain in left toe(s) M79.[address] [address] 01/05/2025 Lucia Oconnell Pain in right toe(s) M79.674 ; Onychomycosis B35.1 and Pain in left toe(s) M79.[address] [address] 04/20/2025 Lucia Oconnell Pain in right toe(s) M79.674 ; Onychomycosis B35.1 and Pain in left toe(s) M79.[address] [address] 07/23/2025 Lucia Oconnell Pain in right toe(s) M79.674 ; Onychomycosis B35.1 and Pain in left toe(s) M79.675 [facility] [address] [place] [address] 04/12/2025 Lucia Oconnell Assessments Encounter Date Diagnosis (ICD Code) Assessment Notes Treatment Notes Treatment Clinical Notes Section Notes 09/22/2024 Pain in right toe(s) (ICD-10 - M79.674) 01/05/2025 Pain in right toe(s) (ICD-10 - M79.674) 04/20/2025 Pain in right toe(s) (ICD-10 - M79.674) 07/23/2025 Pain in right toe(s) (ICD-10 - M79.674) 07/23/2025 Onychomycosis (ICD-10 - B35.1) 04/20/2025 Onychomycosis (ICD-10 - B35.1) 01/05/2025 Onychomycosis (ICD-10 - B35.1) 09/22/2024 Onychomycosis (ICD-10 - B35.1) 01/05/2025 Pain in left toe(s) (ICD-10 - M79.675) 04/20/2025 Pain in left toe(s) (ICD-10 - M79.675) 07/23/2025 Pain in left toe(s) (ICD-10 - M79.675) 09/22/2024 Pain in left toe(s) (ICD-10 - M79.675) Plan Of Treatment Pending Test Test Name Order Date X ray : Ankle, left 2V 06/17/2019 X ray : Ankle, right 2V 06/17/2019 X ray : Foot, left 2V 07/18/2016 X ray : Foot, left 3V 06/17/2019 X ray : Foot, right 3V 06/17/2019 [id number] NAIL, 6 OR MORE 09/22/2024 [id number] Plate 08/17/2015 [id number] 07/04/2016 92693- Debride <25 sq cm 07/18/2016 96348- Debride <25 sq cm 08/30/2015 78244- Debride <25 sq cm 08/08/2016 Next Appt Details Provider Name:Lucia arnold, 10/26/2025 11:15:00 AM, [address] [facility], [address], [place], [address], Insurance Providers Payer Name Payer Address Payer Phone Subscriber Number Group Number Insured Name Patient Relationship to Insured Coverage Start Date Coverage End Date Medicare [employer] [address] [place] [address] [id number] Marquita Wild Self - patient is the insured B [address] [place] [address] [id number] Marquita Wild Self - patient is the insured Medical (General) History Medical History History ICD Code Hyperlipidemia Hypertension Chicken pox Measles Mumps Cataracts Thyroid disorder CAD (Cholesterol) Diverticulosis Hiatal hernia Surgical History Surgery Date(Month/Year) hysterectomy 1988 appendectomy 1948 tonsillectomy 1939 cataract surgery hernia 1987 endoscopy, colonoscopy 09/2024 Hospitalization History Reason Date(Month/Year) [facility] [place] in legs and feet. - No clottin g 06/17/19
[2025-08-12 07:46] LABS: Alanine Aminotransferase 23 U/L (0-31); Albumin Level 4.3 g/dL (3.5-5.0); Alkaline Phosphatase 82 U/L (39-117); Anion Gap 11 (12-20); Aspartate Amino Transferase 22 U/L (5-31); Blood Urea Nitrogen 16 mg/dL (9-16); Calcium 9.8 mg/dL (8.4-10.2); Carbon Dioxide 28 mmol/L (22-29); Chloride 108 mmol/L (96-108); Cholesterol 163 mg/dL (<200); Estimated Glomerular Filt Rate > 60; HDL Cholesterol 52 mg/dL (>40); Potassium 4.2 mmol/L (3.3-5.1); Sodium 143 mmol/L (135-145); Total Protein 6.7 g/dL (6.5-8.0); Triglycerides 153 mg/dL (<150)
[2025-08-12 08:01] LABS: Thyroid Stimulating Hormone 0.95 uIU/mL (0.32-4.0)
== END 2025-08-12 06:13 | disposition home or self-care (01) ==
LOC: HO.LAB 06:12
PROVIDERS: PCP Internal Medicine; Visit Provider Internal Medicine
DX: I10 Essential (primary) hypertension (principal); E55.9 Vitamin D deficiency, unspecified; E03.9 Hypothyroidism, unspecified; E78.5 Hyperlipidemia, unspecified; R73.02 Impaired glucose tolerance (oral)
CPT/HCPCS: 36415; 80053; 80061; 82306; 84443

== ENCOUNTER 2025-08-17 09:53 | Outpatient (AMB) | payer MEDICARE, MEDICAID, SELFPAY ==
[2025-08-17 09:55] VITALS: BP 140/60; PULSE 75; RESP 18; O2SAT 97; BMI 24.7
--- NOTE | 2025-08-17 09:55 | A.OFFPC_ITS ---
Vital Signs 08/17/25 09:55 Height 4 ft 11 in Weight 122 lb 4 oz BMI 24.7 BP 140/60 H Blood Pressure Location Lt brachial Position Sitting Respiration 18 Pulse 75 Pulse Source Pulse Oximeter Temp Source Temporal Artery Scan Pulse Oximetry (%) 97 Oxygen Delivery Method Room Air Intake Visit Reasons: bp,thyroid Events And Promotions Assistant Required: No Accompanied by: Self / Same As Patient Allergies dicyclomine (From A-Spas (dicyclomine)) Adverse Reaction (Intermediate, Verified 08/17/25 10:08) diarrhea Medication List - Last Reconciled 08/17/25 by Gretel Cornejo MD acetaminophen (Tylenol Extra Strength) 500 mg PO Q6H PRN atorvastatin 20 mg PO DAILY cholecalciferol (vitamin D3) 25 mcg PO DAILY cyclosporine 0.05% (Restasis) 1 drp ophthalmic (eye) BID enalapril maleate 20 mg PO DAILY 90 days famotidine 20 mg PO DAILY 90 days levothyroxine 75 mcg PO QAM Tobacco use date assessed: 08/17/25 Fall risk assessment: No Falls in past year Last assessed Fall Risk: 08/17/25 Dental Screening Dental Screen Date: 08/17/25 Did you have a dental visit in the last 12 months?: Yes Did you have a dental problem in the last 6 months where you did not have access to dental care?: No Was dental information given to patient?: Patient has dentist HPI HPI Comments History of Present Illness Details The patient is an 84 year old female presenting for a follow-up on chronic conditions. Her medical history is significant for hypertension, for which she takes enalapril 20 mg, and she reports her blood pressure is usually well-controlled when checked monthly. She has a history of hypercholesterolemia, treated with atorvastatin 20 mg, and recent labs show it is well-controlled. She also has hypothyroidism, managed with levothyroxine 75 mcg, with a normal thyroid level on recent testing. She has a diagnosis of prediabetes, with a recent fasting blood glucose of 108 mg/dL. She acknowledges recent consumption of ice cream. The patient has a history of polymyalgia rheumatica, which is currently stable. She receives injections in her hands for finger locking, which has helped, and she no longer needs to take Arthritis Tylenol at night, allowing her to sleep through the night. A bone density scan this year showed osteopenia, for which she takes vitamin D. She takes famotidine 20 mg for heartburn and uses Tylenol as needed. She has a known allergy to dicyclomine, which causes diarrhea. She has received her flu shot for the year. [facility] Medical History (Updated 08/17/25 @ 10:18 by Gretel Cornejo MD) Polymyalgia rheumatica Diverticulitis Esophageal hernia Impaired glucose tolerance Back pain Weight loss Left inguinal hernia GERD (gastroesophageal reflux disease) Hypothyroidism Essential hypertension Pure hypercholesterolemia Surgical History History of esophagogastroduodenoscopy (EGD) Hx of tonsillectomy Hx of colonoscopy History of inguinal hernia repair (~1987) History of appendectomy History of hysterectomy Family History Father COPD (chronic obstructive pulmonary disease) Mother Acute CVA (cerebrovascular accident) Hypertension Alcoholism Brother Stomach cancer Paternal Grandmother Uterine cancer Family/Other FH: mental illness Maternal Grandmother Hypertension Social History Housing: House Alcohol intake: never Patient Tobacco Use Status: Former Tobacco user Tobacco use type: Cigarette e-Cigarette/Vaping Use: Never Used Second Hand Smoke Exposure: No service: No Current occupational status: retired Cognitive needs: No Hearing needs: No Vision needs: Yes Questionnaire Thrive Questionnaire Date Thrive assessed: 08/17/25 I am a: Patient What is your living situation today?: I have a steady place to live Within the past 12 months, did the food you bought not last and you didn't have the money to get more?: Never true Within the past 12 months, did you worry whether your food would run out before you got money to buy more?: Never true Do you have trouble paying for medicines?: No Do you have trouble getting transportation to medical appointments?: No Do you have trouble paying your heating and electricity bill?: No Do you have trouble taking care of your child, family member or friend?: No Do you have trouble with day-to-day activities such as bathing, preparing meals, shopping, managing finances, etc.?: No Are you currently unemployed and looking for a job?: No Are you interested in more education?: No Please select the resources that you would like help with: None Currently or been in a relationship where the following occur: No concerns reported THRIVE Score: 0 MICHELLE-7 AMB Questionnaire MICHELLE-7 Date MICHELLE - 7 assessed: 09/23/24 Source: Developed by Drs. Fernando Stauffer, Selam Cabrera, Rao Roche and colleagues, with an educational hari from [employer]. Review of Systems Const All systems reviewed & are unremarkable except as noted in HPI and below Card Denies chest pain at rest, Denies chest pain with activity, Denies edema, Denies irregular heart rhythm, Denies claudication, Denies dyspnea, Denies dyspnea on exertion, Denies orthopnea, Denies paroxysmal nocturnal dyspnea and Denies slow heart rate Resp Denies cough, Denies dyspnea and Denies dyspnea on exertion GI Denies abdominal pain, Denies change in bowel habits, Denies excessive flatus, Denies nausea and Denies vomiting Physical exam (Primary Care) Vital Signs: Last Vital Signs Pulse 75 08/17/25 09:55 Resp 18 08/17/25 09:55 BP 140/60 H 08/17/25 09:55 Pulse Ox 97 08/17/25 09:55 Oxygen Delivery Method Room Air 08/17/25 09:55 BMI result Body Mass Index 24.7 Tobacco/Smoking Status: Tobacco use Status Tobacco use date assessed 08/17/25 08/17/25 10:03 Patient Tobacco Use Status Former Tobacco user 08/17/25 10:03 Tobacco use type Cigarette 08/17/25 10:03 e-Cigarette/Vaping Use Never Used 08/17/25 10:03 Thrive Assessment: Date of Thrive Assessment Date Thrive assessed 08/17/25 08/17/25 10:03 Currently or been in a relationship where the following occur: No concerns reported Resp Effort & Inspection: normal respiratory effort Auscultation: clear to auscultation bilaterally Cardio Jugular venous distension: no JVD Rate: regular rate Rhythm: regular rhythm Heart sounds: S1 normal heart sound present and S2 normal heart sound present Extrem General: Yes full ROM Immunizations pneumoc 20-constance conj-dip cr(PF) 0.5 mL IM syringe Performing Provider: Gretel Cornejo MD [facility] [place] [facility] Administered by: Yina Ag RN on 08/17/25 10:26 Dose Route Admin Location Dispensed Lot Number Expiration Date [facility] [employer] 0.5 mL IM Left Deltoid 0.5 mL [id number] 06/08/26 8613-7121-79 [email or web address] Total Dispensed Waste 0.5 mL 0 % VIS Given Date VIS Provided VIS Publication Date 08/17/25 Single Vaccine 25 Eligibility Eligibility Date Funding Source Not [facility] Eligible 08/17/25 Private Coding Level of Care Code Complex visit Add On G2211 Diagnoses Essential hypertension I10 Impaired glucose tolerance R73.02 Hypothyroidism, unspecified type E03.9 Hypothyroidism type: unspecified Osteopenia M85.80 Pure hypercholesterolemia E78.00 Polymyalgia rheumatica M35.3 Time Spent (min) 23 Assessment & Plan Assessment & Plan (1) Essential hypertension: Code(s): I10 - Essential (primary) hypertension Category: Medical (2) Impaired glucose tolerance: Code(s): R73.02 - Impaired glucose tolerance (oral) Category: Medical (3) Hypothyroidism: Code(s): E03.9 - Hypothyroidism, unspecified Category: Medical Qualifiers: Hypothyroidism type: unspecified Qualified Code(s): E03.9 - Hypothyroidism, unspecified (4) Osteopenia: Code(s): M85.80 - Other specified disorders of bone density and structure, unspecified site Category: Medical (5) Pure hypercholesterolemia: Code(s): E78.00 - Pure hypercholesterolemia, unspecified Category: Medical (6) Polymyalgia rheumatica: Comment: follows /[facility] Code(s): M35.3 - Polymyalgia rheumatica Category: Medical Plan Plan 1. Essential hypertension Continue enalapril. Blood pressure goal is equal or less than 130/80. i 2. Prediabetes Recent labs show a fasting blood glucose of 108 mg/dL, confirming prediabetes. The patient was counseled to monitor her diet, specifically regarding items like ice cream, to manage her blood sugar. Fasting blood glucose will be rechecked in six months. 3. Osteopenia A bone density scan this year showed osteopenia. The recommended treatment is calcium with vitamin D. A prescription for calcium will be sent, though it may not be covered by insurance as it is an [id number] supplement. The next bone density scan is scheduled for 2026. 4. Polymyalgia Rheumatica The patient's polymyalgia rheumatica is reported as stable, and she receives injections in her hands from the [facility] treatment [facility] for finger locking. She has been able to discontinue nighttime Tylenol and reports improved sleep. 5. Hypothyroidism Continue levothyroxine. Monitor TSH. Orders: Orders Vitamin D 25-OH Total 6 Months E55.9 - Vitamin D deficiency, unspecified Thyroid Stimulating Hormone 6 Months E03.9 - Hypothyroidism, unspecified Lipid Panel 6 Months E78.5 - Hyperlipidemia, unspecified Comprehensive [place]. Panel Fast 6 Months R73.02 - Impaired glucose tolerance (oral) Pneumococcal 20 Immunization Today Z23 - Encounter for immunization Medications: New calcium carbonate 600 mg PO BID 180 tabs 2RF 90 days M85.80 - Other specified disorders of bone density and structure, unspecified site
== END 2025-08-17 10:28 | disposition home or self-care (01) ==
LOC: HO.HMCH 09:54
PROVIDERS: PCP Internal Medicine; Visit Provider Internal Medicine
DX: I10 Essential (primary) hypertension (principal); R73.02 Impaired glucose tolerance (oral); E03.9 Hypothyroidism, unspecified; M85.80 Other specified disorders of bone density and structure, unspecified site; E78.00 Pure hypercholesterolemia, unspecified; M35.3 Polymyalgia rheumatica; Z23 Encounter for immunization

== ENCOUNTER → 2025-08-17 09:53 | Outpatient (BNVA) | payer MEDICARE, MEDICAID, SELFPAY | PROVIDERS: PCP Internal Medicine; Visit Provider Internal Medicine | DX: I10 Essential (primary) hypertension (principal); R73.02 Impaired glucose tolerance (oral); E03.9 Hypothyroidism, unspecified; Z23 Encounter for immunization; E78.00 Pure hypercholesterolemia, unspecified; Z79.899 Other long term (current) drug therapy; M35.3 Polymyalgia rheumatica; M85.80 Other specified disorders of bone density and structure, unspecified site | CPT/HCPCS: 90471; 90677; 99212 ==